=== PATIENT | male | born 1955 | race Caucasian/White ===

== ENCOUNTER 2016-12-19 20:17 | Observation (INO) | payer MEDICARE ==
[~2016-12-19] VITALS: Ht 177.8 cm; Wt 114.6 kg
--- NOTE | ~2016-12-19 | HEMODYNAMI ---
PATIENT:LYNDA KAHN MEDICAL RECORD: [id number] : 59 LOCATION:[facility] D.212 ADMISSION DATE: 12/19/16 Generatedon:12/20/201611:44 Patient name: LYNDA KAHN Patient #: [id number] SSN: DO B: 1955 Date of study: 12/20/2016 Page: Of Hemodynamic Procedure Report Patient Data Patient Demographics Procedure consent was obtained First Name: LYNDA Gender: Male Last Name: FEMI : 1955 [facility] Initial: L Age: 60 year(s) Patient #: [id number] Race: Unknown Additional ID: [id number] Contact details [address]: [address] [place] [address] State: [place] City: [place] Zip code: [address] Past Medical History Allergies Allergen Reaction Date Comments Reported Other allergy 12/20/2016 Ibuprofen Admission Admission Data Admission Date: 12/19/2016 Admission Time: 22:10 Admit Source: Other Room #: D.2122 Height (in.): 70 BSA: 2.3 (m2) Height (cm.): 177.8 BMI: 35.94 (kg/m2) Weight (lbs.): 250.51 Weight (kg.): 113.63 Lab Results Lab Result Date: 12/19/2016 Lab Result Time: 20:00 Biochemistry Name Units Result Min Max BUN mg/dl 14 --(--*-)-- 7 18 Creatinine mg/dl 1.1 --(--*-)-- 0.6 1.3 CBC Name Units Result Min Max Hematocrit % 40.3 -*(----)-- 42 54 Hemoglobin g/dl 13.2 -*(----)-- 13.5 17.5 Procedure Procedure Types Cath Procedure Diagnostic Procedure [facility] w/Coronaries PCI Procedure Coronary Stent Initial Procedure Description Procedure Date Procedure Date: 12/20/2016 Procedure Start Time: 11:12 Procedure End Time: 11:43 Procedure Staff Name Function Wily Martinez MD Performing Physician Amarilis Aguilar RT Scrub Dagmar Moreno RN Nurse Aaron Machuca RT Monitor Yong Connell RT Monitor Procedure Data Cath Procedure Fluoroscopy Diagnostic fluoroscopy Total fluoroscopy Time: 4.9 time: 4.9 min min Diagnostic fluoroscopy Total fluoroscopy dose: dose: 1147 mGy 1147 mGy Contrast Material Contrast Material Type Amount (ml) Isovue 300 109 Entry Location Entry Primary Successful Side Size Upsize Upsize Entry Closure Succes sful Closure Location (Fr) 1 (Fr) 2 (Fr) Remarks Device Remarks Femoral Right 5 Fr 6 Fr Exoseal artery Short Diagnostic catheters Device Type Used For End Catheter Placement Cordis 5Fr JL 4.0 Procedure Catheter (MP) Cordis 5Fr 3DRC Catheter Procedure (MP) Cordis 5Fr Pigtail Procedure Catheter (MP) Procedure Medications Medication Administration Route Dosage Oxygen NC 2 l/min Heparin Flush Bag added to field 2 bags (1000units/500ml NS) Lidocaine 2% added to field 20 Versed I.V. 1 mg Fentanyl I.V. 50 mcg Versed I.V. 1 mg Fentanyl I.V. 50 mcg Versed I.V. 1 mg Fentanyl I.V. 50 mcg Heparin Bolus I.V. 50360 units Integrilin Drip I.V. drip 18 ml/hr (75mg/100ml) Brilinta P.O. 180 mg Hemodynamics Rest BSA: 2.3 (m2) HGB: 13.2 (g/dl) O2 Consumption: Estimated: 264.02 (ml/min) O2 Con sumption indexed: Estimated:114.79 (ml/min/m) Heart Rate: 62 (bpm) Pressure Samples Time Site Value (mmHg) Purpose Heart Use Rate(bpm) 11:20 LV 130/20,36 Snapshot 66 11:21 AO 121/79(94) Pullback 76 11:21 LV 161/5,46 Pullback 76 Gradients Valve Time Site 1 Site 2 Mean SEP/DFP Peak To Heart Use (mmHg) (sec/min) Peak Rate (mmHg) (bpm) Aortic 11:21 LV AO 26 6 40 76 161/5,46 121/79(94) Calculations Valve P-P Mean Valve Index Valve Source Name Gradient Area Flow (cm2) Aortic 40 26 40 26 Snapshots Pre Cath Intra NCS Post Cath Vital Signs Time Heart Resp SPO2 NIBP Rhythm Pain Sedation Rate (ipm) (%) (mmHg) Status Level (bpm) 10:56:13 64 17 96 129/71(90) NSR 0 (11) 10(A) , No pain 11:00:23 63 18 96 121/67(88) NSR 0 (11) 10(A) , No pain 11:04:33 67 16 98 116/60(89) NSR 0 (11) 10(A) , No pain 11:08:38 64 16 98 127/70(89) NSR 0 (11) 9(A) , No pain 11:12:50 62 15 98 122/63(88) NSR 0 (11) 9(A) , No pain 11:16:58 69 17 98 121/67(94) NSR 0 (11) 9(A) , No pain 11:21:08 74 16 98 130/63(91) NSR 0 (11) 9(A) , No pain 11:25:20 65 16 98 112/68(93) NSR 0 (11) 9(A) , No pain 11:29:26 64 16 98 119/65(86) NSR 0 (11) 9(A) , No pain 11:33:34 66 16 98 125/64(87) NSR 0 (11) 9(A) , No pain 11:37:43 65 16 98 118/64(89) NSR 0 (11) 10(A) , No pain 11:38:59 63 16 98 122/60(91) NSR 0 (11) 10(A) , No pain 11:43:09 70 13 97 125/67(83) NSR 0 (11) 10(A) , No pain Medications Time Medication Route Dose Verified Delivered Reason Notes Effectiveness by by 10:57:48 Oxygen NC 2 Wily Dagmar Per physician l/min Darryl Moreno RN 10:57:57 Heparin Flush added 2 bags Wily Wily used for Bag to Darryl Martinez MD procedure (1000units/500ml field NS) 10:58:03 Lidocaine 2% added 20ml Wily Wily used for to vial Darryl Martinez MD procedure field 11:02:12 Versed I.V. 1 mg Wily Dagmar for sedation Darryl Moreno RN 11:02:26 Fentanyl I.V. 50 mcg Wily Dagmar for sedation Darryl Moreno RN 11:05:00 Versed I.V. 1 mg Wily Dagmar for sedation Darryl Moreno RN 11:05:09 Fentanyl I.V. 50 mcg Wily Dagmar for sedation Darryl Moreno RN 11:07:38 Versed I.V. 1 mg Wily Dagmar for sedation Darryl Moreno RN 11:07:41 Fentanyl I.V. 50 mcg Wily Dagmar for sedation Darryl Moreno RN 11:29:05 Heparin Bolus I.V. 11,000 Wily Dagmar for dose units Darryl Moreno RN anticoagulation verified with dr martinez 11:37:34 Integrilin Drip I.V. 18 Wily Dagmar for (75mg/100ml) drip ml/hr Darryl Moreno RN antiplatelet therapy 11:37:56 Brilinta P.O. 180 mg Wily Dagmar for Darryl Moreno RN antiplatelet therapy Procedure Log Time Note 10:32:12 Informed consent obtained and on chart 10:32:16 Admit Source: Other 10:32:31 Diagnostic Cath status Elective 10:32:33 Dagmar Moreno RN sent for patient. Start room use. 10:32:34 Time tracking: Regular hours 10:32:40 Plan of Care:Hemodynamics will remain stable., Cardiac rhythm will remain stable., Comfort level will be maintained., Respiratory function will remain adequate., Patient/ family verbilizes understanding of procedure., Procedure tolerated without complication., Recovers from procedure without complications.. 10:33:43 Lab Result : Hemoglobin 13.2 g/dl 10:33:43 Lab Result : Creatinine 1.1 mg/dl 10:33:43 Lab Result : BUN 14 mg/dl 10:33:43 Lab Result : Hematocrit 40.3 % 10:34:20 H&P Date Dictated: 12/20/2016 Within 30 days and on chart.. 10:34:32 Patient Height : 177.8 cm 10:34:35 Patient Weight : 113.63 kg 10:42:07 Patient received from Med II to CCL 2 Alert and oriented. Tansferred to table in Supine position. 10:42:09 Warm blankets applied, and precious hugger turned on for patient comfort. 10:42:09 Correct patient and procedure confirmed by team. 10:42:10 ECG and BP/O2 sat monitors applied to patient. 10:42:12 Pre-procedure instructions explained to patient. 10:42:13 Pre-op teaching completed and patient verbalized understanding. 10:42:15 Family unavailable. 10:42:17 Patient NPO since Midnight. 10:55:03 Vital chart was started 10:57:48 Oxygen 2 l/min NC was administered by Dagmar Moreno RN; Per physician; 10:57:57 Heparin Flush Bag (1000units/500ml NS) 2 bags added to field was administered by Wily Martinez MD; used for procedure; 10:58:03 Lidocaine 2% 20ml vial added to field was administered by Wily Martinez MD; used for procedure; 10:59:04 Patient allergic to Other allergyIbuprofen 10:59:15 Is the patient allergic to Iodine/contrast media? No. 10:59:18 Is patient on blood thinner?No 10:59:19 Patient diabetic? Yes. 10:59:20 If diabetic: On Metformin? Yes 10:59:22 If on Metformin: Last Dose? 12/19/2016 10:59:25 Previous problem with sedation/anesthesia? No ? 10:59:25 Snore? Yes 10:59:26 Sleep apnea? Yes 10:59:27 Deviated septum? No 10:59:28 Opens mouth fully? Yes 10:59:28 Sticks out tongue? Yes 10:59:29 Airway obstruction? No ? 10:59:34 Dentures? Yes out 10:59:48 Baseline sample Acquired. 10:59:51 Rhythm: sinus rhythm 10:59:52 Full Disclosure recording started 10:59:57 Modified Joaquin's test Ulnar > 7 seconds. 11:00:01 Pre procedure: right dorsailis pedis pulse 1+ Palpable, but thready & weak; easily obliterated 11:00:03 Patient pain scale 0/10 ?. 11:00:08 IV patent on arrival in left antecubital with 0.9% NaCl at [facility]. 11:00:11 Lab results completed and on chart. 11:00:13 Right groin area was prepped with chlora-prep and draped in sterile fashion 11:00:14 Alarms reviewed by RLeslie N. 11:00:14 Sharps counted by scrub and verified by R.N. 11:00:20 Use device set Femoral Dx 11:00:21 Tegaderm 4 x 4 opened to sterile field. 11:00:22 Acist Hand Control opened to sterile field. :00:22 Acist Manifold opened to sterile field. 11:00: Acist Syringe opened to sterile field. 11:00: Bag Decanter opened to sterile field. 11:00:27 Medline Cath Pack opened to sterile field. 11:00:29 Diagnostic Infinity 5Fr Multipack catheter opened to sterile field. 11:00:30 Terumo 5Fr Sparks Sheath opened to sterile field. 11:00:31 St Monster 260cm J .035 wire opened to sterile field. 11::13 Zero performed for pressure channel P1 11::48 Physician arrived 11::48 --------ALL STOP TIME OUT------ 11::49 Final Timeout: patient, procedure, and site verified with staff and physician. All members of the team are in agreement. 11:01:50 Right groin site verified by team. 11::53 Physical assessment completed. ASA score P 2 - A patient with mild systemic disease as per Wily Martinez MD. 11:01:55 Sedation plan: IV Moderate Sedation Versed, Fentanyl 11:02:12 Versed 1 mg I.V. was administered by Dagmar Moreno RN; for sedation; ::26 Fentanyl 50 mcg I.V. was administered by Dagmar Moreno RN; for sedation; 11:05:00 Versed 1 mg I.V. was administered by Dagmar Moreno RN; for sedation; 11:05:09 Fentanyl 50 mcg I.V. was administered by Dagmarmeng Moreno RN; for sedation; 11:07:38 Versed 1 mg I.V. was administered by Dagmarlisa Moreno RN; for sedation; 11:07:41 Fentanyl 50 mcg I.V. was administered by Dagmarmeng Moreno RN; for sedation; 11:12:02 Procedure started. 11:12:05 Local anesthetic to right femoral artery with Lidocaine 2% by Wily Martinez MD.INITIAL ACCESS ONLY 11:13:27 A 5 Fr sheath was inserted into the Right Femoral artery 11:13:54 A Cordis 5Fr JL 4.0 Catheter (MP) was advanced over the wire and used for Procedure. 11:14:50 LCA angiography performed. 11:16:12 Catheter exchanged over wire. 11:16:19 A Cordis 5Fr 3DRC Catheter (MP) was advanced over the wire and used for Procedure. 11:17:15 RCA angiography performed. 11:18:26 Catheter exchanged over wire. 11:18:32 A Cordis 5Fr Pigtail Catheter (MP) was advanced over the wire and used for Procedure. 11:20:50 LV gram done using BROWN 11:20:52 Injector settings: Ml/sec: 10, Volume: 0, 11:21:01 EF : 55 % 11:22:16 Catheter removed. 11:22:25 Terumo 6Fr Sparks Sheath opened to sterile field. 11:24:46 RIGID BasixCompak Inflation Kit opened to sterile field. 11:24:46 Cordis 6FR XBLAD 3.5 guide catheter opened to sterile field. 11:24:47 [employer] [place] 2 J-tip 300cm 0.014 guide wir opened to sterile field. 11:24:59 Sheath upsized to a 6 Fr Short. 11:25:32 6 Fr xblad 3.5 guide catheter was inserted over the wire 11:29:05 Heparin Bolus 11,000 units I.V. was administered by Dagmar Moreno RN; for anticoagulation; dose verified with dr martinez 11:30:31 whisper wire advanced. 11:31:02 Wire advanced across lesion. 11:33:44 Inflation Number: 1 A Victor Ultra Rx 5.0 x 13 Stent was prepped and advanced across the Mid LAD. The stent was deployed at 12 ROSA MARIA for 0:10 (min:sec). 11:34:13 Stent catheter was removed intact over wire. 11:34:45 Wire removed. 11:34:57 Guide catheter removed. 11:35:12 Cordis 6Fr Exoseal opened to sterile field. 11:35:32 Sheath removed intact; hemostasis achieved with Exoseal to the Right Femoral artery. 11:36:03 Procedure ended.(Physican Out) 11:36:46 Fluoroscopy time 04.90 minutes. 11:36:57 Fluoroscopy dose: 1147 mGy 11:36:57 Flurop Dose total: 1147 11:37:10 Contrast amount:Isovue 300 109ml. 11:37:11 Sharps counted by scrub and verified by R.N. 11:37:34 Integrilin Drip (75mg/100ml) 18 ml/hr I.V. drip was administered by Dagmar Moreno RN; for antiplatelet therapy; 11:37:56 Brilinta 180 mg P.O. was administered by Dagmar Moreno RN; for antiplatelet therapy; 11:39:12 Procedure type changed to Cath procedure, Diagnostic procedure, LHC, LHC w/Coronaries, PCI procedure, Coronary Stent Initial 11:42:21 Insertion/operative site no bleeding no hematoma. 11:42:25 Post-op/insertion site Right Femoral artery dressed using a 4 x 4 and Tegaderm. 11:42:30 Post right femoral artery:stable 11:42:46 Post-procedure physical assessment completed. ASA score P 2 - A patient with mild systemic disease as per Wily Martinez MD. 11:43:05 Post procedure rhythm: sinus rhythm 11:43:08 Procedure and supply charges have been captured, reviewed, submitted and are correct. 11:43:25 Vital chart was stopped 11:43:26 See physician's report for complete and final results. 11:43:32 Report given to PCU. 11:43:36 Patient transfered to PCU with Bed. 11:43:40 Procedure ended. 11:43:40 Full Disclosure recording stopped 11:43:51 End room use (Document Last) 11:44:01 ACC-PCI Only Patient was given prescriptions, or instructed by Wily Martinez MD to start/continue the following medications upon discharge: Brilinta Intervention Summary Intervention Notes Time ActionType Lesion and Equipment Action# Pressure Duration Attributes Used 11:33:44 Place stent Mid LAD Victor 1 12 00:10 Ultra Rx 5.0 x 13 Stent Device Usage Item Name Manufacture Quantity Catalog Hospital Part Current Minimal Lot# / Number Charge Number Stock Stock Serial# Code Tegaderm 4 3M 1 [id number] 646006 853576 5 x 4 Acist Hand Acist 1 87815 682456 514021 585021 5 Control [employer] Inc Acist Acist 1 07912 282567 679133 746593 5 Manifold Medical [employer] Inc Acist Acist 1 07027 487399 471086 285197 20 Syringe Medical Systems Inc Bag Microtek 1 [facility] 769401 60799 706085 5 Dec[employer]ex[employer]ense [employer] Medline Cardinal 1 [id number] 588331 35616 072278 5 Cath Pack Health Diagnostic Cardinal 1 [id number] 770915 48461 202204 30 Infinity Health 5Fr Multipack catheter Terumo 5Fr Terumo 1 [id number] 038788 463460 395419 [address] Monster 1 519107 244230 196062 885739 30 260cm J .035 wire Cordis 5Fr Cardinal 1 691653 5 JL 4.0 Health Catheter (MP) Cordis 5Fr Cardinal 1 835932 5 3DRC Health Catheter (MP) Cordis 5Fr Cardinal 1 192132 5 Pigtail Health Catheter (MP) Terumo 6Fr Terumo 1 [id number] 486854 628151 147162 40 Sparks Sheath [facility] 1 [id number] 057097 961781 339987 15 BasixCompak Medical Inflation Kit Cordis 6FR Cardinal 1 [id number] 644645 258747 773855 10 XBLAD 3.5 Health guide catheter Victor [employer] Victor 1 [id number] 008810 408236 248667 5 [place] 2 Vascular J-tip 300cm 0.014 guide wir Victor Victor 1 [id number] 141375 460037 960353 5 [id number] Ultra Rx Vascular 5.0 x 13 Stent Cordis 6Fr Cardinal 1 EX600 429017 285808 564841 10 [facility] Signature Audit [place] Stage Time Signature Unsigned Intra-Procedure 12/20/2016 Yong Connell 11:44:42 AM RT(R) (CV) Signatures Monitor : Aaron Machuca RT Signature : Date : Time : Monitor : Yong Connell RT Signature : Date : Time : [facility] [address] [address]
--- NOTE | ~2016-12-19 | OP ---
PATIENT NAME: LYNDA KAHN MEDICAL RECORD: [id number] :59 LOCATION:D. D.2122 ADMISSION DATE:12/19/16 SURGEON: ARMIN GR M.D. DATE OF OPERATION: 12/21/2016 REFERRING PHYSICIAN: Jose G Esparza DO. PROCEDURES PERFORMED: PTCA and stent placed in the right coronary. INDICATION: A 60-year-old gentleman who presents with unstable angina. He returns today for completion of staged procedure. EQUIPMENT USED: A 7-Dominican AR1 guide, Whisper guidewire, 3.0 x 15 mm Wallace balloon, 4.5 x 30 mm Ultra stent, 4.0 x 18 mm Integrity stent. DESCRIPTION OF INTERVENTION: A 7-Dominican sheath was inserted in retrograde fashion in the left common femoral artery. Next, 9000 units of heparin was infused. A 7-Dominican AR1 guide was advanced and engaged in the right coronary. Injections revealed a 99% stenosis with a large calcified plaque in the proximal segment. There appeared to be a ruptured plaque in mid segment representing an 80% stenosis. At this point, a Whisper guidewire was placed in the distal aspect of the vessel. The proximal vessel was predilated with a 3.0 x 15 mm Wallace balloon at 14 atmospheres. Next, a 4.5 x 30 mm Ultra stent was placed across the stenosis and deployed at 12 atmospheres. Injection shows stent to be widely patent with 0% residual stenosis. Next, a 4.0 x 18 mm Integrity stent was placed across the lesion in the mid right coronary artery. This stent was deployed at 18 atmospheres. Injection shows stent to be widely patent with 0% residual stenosis. There was marked improvement in distal flow. There is no evidence of any thrombus throughout the right coronary artery filling. At this point, the wire and guide were removed. IMPRESSION: Successful percutaneous transluminal coronary angioplasty and stenting to the right coronary artery with 0% residual stenosis. TRANSINT:[id number] Voice Confirmation ID: [id number] DOCUMENT ID: [id number] ARMIN GR M.D. CC: [id number] DICTATION DATE: 12/21/16 1323 CHARACTER IMPERSONATOR: 12/21/16 2100 DIS IN 12/21/16 [facility] [address] [place] [address]
--- NOTE | ~2016-12-19 | HEMODYNAMI ---
PATIENT:LYNDA KAHN MEDICAL RECORD: [id number] : 59 LOCATION:[facility] D.2122 ADMISSION DATE: 12/19/16 Generatedon:12/21/201613:22 Patient name: LYNDA KAHN Patient #: [id number] SSN: DO B: 1955 Date of study: 12/21/2016 Page: Of Hemodynamic Procedure Report Patient Data Patient Demographics Procedure consent was obtained First Name: LYNDA Gender: Male Last Name: FEMI : 1955 [facility] Initial: L Age: 60 year(s) Patient #: [id number] Race: Unknown Additional ID: [id number] Contact details [address]: [address] [place] [address] State: [place] City: [place] Zip code: [address] Past Medical History Allergies Allergen Reaction Date Comments Reported Other allergy 12/20/2016 Ibuprofen Other allergy 12/21/2016 ibuprofen Admission Admission Data Admission Date: 12/19/2016 Admission Time: 22:10 Admit Source: Other Room #: D.2122 Height (in.): 70 BSA: 2.3 (m2) Height (cm.): 177.8 BMI: 35.94 (kg/m2) Weight (lbs.): 250.51 Weight (kg.): 113.63 Lab Results Lab Result Date: 12/21/2016 Lab Result Time: 5:36 Biochemistry Name Units Result Min Max BUN mg/dl 16 --(---*)-- 7 18 Creatinine mg/dl 1 --(--*-)-- 0.6 1.3 CBC Name Units Result Min Max Hematocrit % 40.5 -*(----)-- 42 54 Hemoglobin g/dl 13 -*(----)-- 13.5 17.5 Procedure Procedure Types Cath Procedure PCI Procedure Coronary Stent Initial Miscellaneous Procedures Moderate Sedation up to 45 minutes Procedure Description Procedure Date Procedure Date: 12/21/2016 Procedure Start Time: 12:49 Procedure End Time: 13:19 Procedure Staff Name Function Yong RAY Scrub Pradeep Reyes RN Nurse Aaron Machuca RT Monitor Wily Andrews MD Performing Physician Procedure Data Cath Procedure Fluoroscopy Diagnostic fluoroscopy Total fluoroscopy Time: 7 time: 7 min min Diagnostic fluoroscopy Total fluoroscopy dose: dose: 601.16 mGy 601.16 mGy Contrast Material Contrast Material Type Amount (ml) Isovue 300 81 Entry Location Entry Primary Successful Side Size Upsize Upsize Entry Closure Succes sful Closure Location (Fr) 1 (Fr) 2 (Fr) Remarks Device Remarks Femoral Right 7 Fr Exoseal artery Short Estimated blood loss: 10 ml Procedure Complications No complications Procedure Medications Medication Administration Route Dosage Oxygen NC 2 l/min Heparin Flush Bag added to field 2 bags (1000units/500ml NS) 0.9% NaCl I.V. 100 ml/hr Fentanyl I.V. 50 mcg Versed I.V. 1 mg Fentanyl I.V. 50 mcg Versed I.V. 1 mg Fentanyl I.V. 50 mcg Fentanyl I.V. 50 mcg Heparin Bolus I.V. 9000 units Versed I.V. 1 mg Hemodynamics Rest BSA: 2.3 (m2) HGB: 13 (g/dl) O2 Consumption: Estimated: 269.5 (ml/min) O2 Consum ption indexed: Estimated:117.17 (ml/min/m) Heart Rate: 69 (bpm) Snapshots Pre Cath Intra NCS Post Cath Vital Signs Time Heart Resp SPO2 NIBP (mmHg) Rhythm Pain Sedation Rate (ipm) (%) Status Level (bpm) 12:36:40 68 16 94 135/76(93) NSR 0 (11) 10(A) , No pain 12:40:54 66 17 97 121/76(100) NSR 0 (11) 10(A) , No pain 12:45:12 71 18 98 127/79(99) NSR 0 (11) 10(A) , No pain 12:49:28 66 18 97 130/78(104) NSR 0 (11) 9(A) , No pain 12:53:48 67 17 98 127/73(96) NSR 0 (11) 9(A) , No pain 12:58:15 76 17 94 130/81(112) NSR 0 (11) 9(A) , No pain 13:02:35 77 18 96 147/85(121) NSR 0 (11) 9(A) , No pain 13:07:13 75 18 97 149/76(124) NSR 0 (11) 9(A) , No pain 13:11:47 77 18 97 139/82(101) NSR 0 (11) 9(A) , No pain 13:16:10 75 18 97 128/77(104) NSR 0 (11) 9(A) , No pain 13:20:57 72 17 98 139/84(95) NSR 0 (11) 9(A) , No pain Medications Time Medication Route Dose Verified Delivered Reason Notes Effectiveness by by 12:39:28 Oxygen NC 2 Pradeep Pradeep Per physician l/min Eric Reyes RN RN 12:39:37 Heparin Flush added 2 Pradeep Pradeep used for Bag to bags Eric Reyes RN procedure (1000units/500ml field RN NS) 12:39:47 0.9% NaCl I.V. 100 Pradeep Pradeep Per physician ml/hr Eric Reyes RN RN 12:43:48 Fentanyl I.V. 50 Pradeep Pradeep for sedation mcg Eric Reyes RN RN 12:43:54 Versed I.V. 1 mg Pradeep Pradeep for sedation Eric eRyes RN RN 12:48:09 Fentanyl I.V. 50 Pradeep Pradeep for sedation mcg Eric Reyes RN RN 12:48:13 Versed I.V. 1 mg Pradeep Pradeep for sedation Eric Reyes RN RN 12:53:51 Fentanyl I.V. 50 Pradeep Pradeep for sedation mcg Eric Reyes RN RN 12:55:13 Fentanyl I.V. 50 Pradeep Pradeep for sedation mcg Eric Reyes RN RN 12:55:50 Heparin Bolus I.V. 9000 Pradeep Pradeep for units Eric Reyes RN anticoagulation RN 12:58:39 Versed I.V. 1 mg Pradeep Pradeep for sedation Eric Reyes RN inspector balance bridge Log Time Note 12:00:30 Pradeep Reyes RN sent for patient. Start room use. 12:18:09 Informed consent obtained and on chart 12:18:27 Diagnostic Cath status Elective 12:18:36 Time tracking: Regular hours 12:18:39 Plan of Care:Hemodynamics will remain stable., Cardiac rhythm will remain stable., Comfort level will be maintained., Respiratory function will remain adequate., Patient/ family verbilizes understanding of procedure., Procedure tolerated without complication., Recovers from procedure without complications.. 12:19:30 Lab Result : BUN 16 mg/dl 12::30 Lab Result : Creatinine 1 mg/dl 12::30 Lab Result : Hematocrit 40.5 % 12::30 Lab Result : Hemoglobin 13 g/dl 12::33 Lab results completed and on chart. 12:26:45 Patient received from PCU to CCL 3 Alert and oriented. Tansferred to table in Supine position. 12:26:46 Warm blankets applied, and precious hugger turned on for patient comfort. 12:26:46 Correct patient and procedure confirmed by team. 12::47 ECG and BP/O2 sat monitors applied to patient. 12:35:26 Vital chart was started 12:36:25 Baseline sample Acquired. 12:36:28 Rhythm: sinus rhythm 12:36:33 H&P Date Dictated: 12/20/2016 Within 30 days and on chart.. 12:36:34 Pre-procedure instructions explained to patient. 12:36:35 Pre-op teaching completed and patient verbalized understanding. 12:36:37 Family unavailable. 12:36:38 Patient NPO since Midnight. 12:36:49 Patient allergic to Other allergyibuprofen 12:36:51 Is the patient allergic to Iodine/contrast media? No. 12:36:51 Is patient on blood thinner?Yes 12:36:54 ACC The patient was administered the following blood thiners within the last 24 hours: ACCBrilinta 12:36:58 Patient diabetic? Yes. 12:36:59 If diabetic: On Metformin? Yes 12:37:02 If on Metformin: Last Dose? 12/19/2016 12:37:05 Previous problem with sedation/anesthesia? No ? 12:37:06 Snore? Yes 12:37:07 Sleep apnea? Yes 12:37:08 Deviated septum? No 12:37:08 Opens mouth fully? Yes 12:37:10 Sticks out tongue? Yes 12:37:16 Airway obstruction? No ? 12:37:19 Dentures? Yes out 12:37:33 Patient pain scale 0/10 ?. 12:37:37 IV patent on arrival in left antecubital with 0.9% NaCl at KVO. 12:37:46 Left groin area was prepped with chlora-prep and draped in sterile fashion 12:37:49 Alarms reviewed by R. N. 12:37:50 Sharps counted by scrub and verified by R.N. 12:37:56 Use device set Femoral PCI 12:37:57 Tegaderm 4 x 4 opened to sterile field. 12:37:57 Acist Manifold opened to sterile field. 12:37:59 Acist Syringe opened to sterile field. 12:37:59 Acist Hand Control opened to sterile field. 12:38:00 Bag Decanter opened to sterile field. 12:38:00 Medline Cath Pack opened to sterile field. 12:38:01 Terumo 6Fr Gibson Sheath opened to sterile field. 12:38:01 St Monster 260cm J .035 wire opened to sterile field. 12:38:02 Merit BasixCompak Inflation Kit opened to sterile field. 12:38:10 Physician arrived 12:38:10 --------ALL STOP TIME OUT------ 12:38:11 Final Timeout: patient, procedure, and site verified with staff and physician. All members of the team are in agreement. 12:38:12 Left groin site verified by team. 12:38:15 Physical assessment completed. ASA score P 2 - A patient with mild systemic disease as per Wily Andrews MD. 12:38:18 Sedation plan: IV Moderate Sedation Versed, Fentanyl 12:39:28 Oxygen 2 l/min NC was administered by Pradeep Reyes RN; Per physician; 12:39:37 Heparin Flush Bag (1000units/500ml NS) 2 bags added to field was administered by Pradeep Reyes RN; used for procedure; 12:39:47 0.9% NaCl 100 ml/hr I.V. was administered by Pradeep Reyes RN; Per physician; 12:43:48 Fentanyl 50 mcg I.V. was administered by Pradeep Reyes RN; for sedation; 12:43:49 Victor Whisper J 300cm 0.014 guide wire opened to sterile field. 12:43:54 Versed 1 mg I.V. was administered by Pradeep Reyes RN; for sedation; 12:48:09 Fentanyl 50 mcg I.V. was administered by Pradeep Reyes RN; for sedation; 12:48:13 Versed 1 mg I.V. was administered by Pradeep Reyes RN; for sedation; 12:49:02 Zero performed for pressure channel P1 12:49:14 Procedure started. 12:49:14 Full Disclosure recording started 12:49:19 Local anesthetic to left femerol artery with Lidocaine 2% by Wily Andrews MD.INITIAL ACCESS ONLY 12:49:27 A 7 Fr Short sheath was inserted into the Right Femoral artery 12:49:42 Medtronic Launcher 7Fr AR 1.0 guide catheter opened to sterile field. 12:49:43 Zero performed for pressure channel P1 12:49:55 High Pressure Extension Tubing (Darryl) opened to sterile field. 12:53:51 Fentanyl 50 mcg I.V. was administered by Pradeep Reyes RN; for sedation; 12:54:14 7 Fr AR 1 guide catheter was inserted over the wire 12:55:02 RCA angiography performed. 12:55:13 Fentanyl 50 mcg I.V. was administered by Pradeep Reyes RN; for sedation; 12:55:50 Heparin Bolus 9000 units I.V. was administered by Pradeep Reyes RN; for anticoagulation; 12:56:57 WHISPER wire advanced. 12:57:59 Wire advanced across lesion. 12:58:39 Versed 1 mg I.V. was administered by Pradeep Reyes RN; for sedation; 13:00:09 Inflation number: 1 A [place] Sci [place]ville 3.0 X 15 balloon was prepped and advanced across the Prox RCA, then inflated to 12 ROSA MARIA for 0:10 (min:sec). 13:00:34 Inflation number: 2 The [place] Sci Renville 3.0 X 15 balloon was reinflated across the Prox RCA, to 12 ROSA MARIA for 0:10 (min:sec). 13:02:04 Balloon removed over the wire. 13:04:31 Inflation Number: 3 A Victor Ultra Rx 4.5 x 13 stent was prepped and advanced across the Prox RCA. The stent was deployed at 12 ROSA MARIA for 0:10 (min:sec). 13:05:40 Stent catheter was removed intact over wire. 13:09:26 The Victor Ultra Rx 5.0 x 18 stent was advanced then removed because of failure to cross lesion 13:13:21 Inflation Number: 1 A Medtronic Integrity 4.0 X 18 stent was prepped and advanced across the Mid RCA. The stent was deployed at 18 ROSA MARIA for 0:10 (min:sec). 13:14:29 Stent catheter was removed intact over wire. 13:14:30 Wire removed. 13:14:30 Guide catheter removed. 13:14:36 Cordis 7Fr Exoseal opened to sterile field. 13:14:50 Sheath removed intact; hemostasis achieved with Exoseal to the Right Femoral artery. 13:14:52 Procedure ended.(Physican Out) 13:15:03 Fluoroscopy time 07.00 minutes. 13:15:10 Fluoroscopy dose: 601.16 mGy 13:15:10 Flurop Dose total: 601.16 13:15:42 Contrast amount:Isovue 300 81ml. 13:15:43 Sharps counted by scrub and verified by R.N. 13:15:44 Insertion/operative site no bleeding no hematoma. 13:15:47 Post-op/insertion site Left Femoral artery dressed using a 4 x 4 and Tegaderm. 13:15:52 Post left femerol artery:stable, soft, clean and dry 13:15:53 Post Procedure Pulses reassessed and unchanged 13:15:56 Post-procedure physical assessment completed. ASA score P 2 - A patient with mild systemic disease as per Wily Andrews MD. 13:15:58 Post procedure rhythm: unchanged. 13:16:02 Estimated blood loss: 10 ml 13:16:03 Post procedure instruction explained to patient.Patient verbalizes understanding. 13:16:03 Patient needs reinforcement of post procedure teaching. 13:18:03 Procedure type changed to Cath procedure, PCI procedure, Coronary Stent Initial, Miscellaneous Procedures, Moderate Sedation up to 45 minutes 13:19:40 Procedure and supply charges have been captured, reviewed, submitted and are correct. 13:19:42 Procedure Complication : No complications 13:19:44 Vital chart was stopped 13:19:44 See physician's report for complete and final results. 13:19:46 Report given to PCU. 13:19:47 Patient transfered to PCU with Stretcher. 13:19:49 Procedure ended. 13:19:49 Full Disclosure recording stopped 13:20:16 End room use (Document Last) Intervention Summary Intervention Notes Time ActionType Lesion and Equipment Action# Pressure Duration Attributes Used 13:00:09 Inflate Prox RCA [place] 1 12 00:10 balloon Sci [place] 3.0 X 15 balloon 13:00:34 Reinflate Prox RCA [place] 2 12 00:10 balloon Sci [place] 3.0 X 15 balloon 13:04:31 Place stent Prox RCA Victor 3 12 00:10 Ultra Rx 4.5 x 13 stent 13:09:26 Discard Victor Stent Ultra Rx 5.0 x 18 stent 13:13:21 Place stent Mid RCA Medtronic 1 18 00:10 Integrity 4.0 X 18 stent Device Usage Item Name Manufacture Quantity Catalog Number Hospital Part Current Mini mal Lot# / Charge Number Stock Stock Serial# Code Tegaderm 4 3M 1 [id number] 061619 238136 547703 5 x 4 Acist Acist 1 53463 183371 495225 862567 5 Manifold Medical Systems Io Therapeutics Acist Acist 1 82130 640542 409596 717601 20 Syringe Medical Systems [employer]rapeutics Acist Hand Acist 1 84433 705181 215479 592444 5 [facility] Systems [employer]rapeutics Bag Microtek 1 2002S 577596 32063 480788 5 Pact. Medline Cardinal 1 [id number] 967549 10586 132029 5 Cath Yorder Terumo 6Fr Terumo 1 [id number] 549116 280279 787731 [address] Monster St Monster 1 104677 590686 361221 962505 30 260cm J .035 wire Merit Merit 1 [id number] 003430 288982 411085 15 BasixCompak Medical Inflation Kit Victor Victor 1 [id number] 461884 472174 290836 5 Whisper J Vascular 300cm 0.014 guide wire Medtronic Medtronic 1 [id number] 539779 873214 775548 0 Launcher 7Fr AR 1.0 guide catheter High Merit 1 [id number] 053926 26520 715787 10 Pressure Medical Extension Tubing (Andrews) [place] Sci [place] 1 [id number] 028266 462985 907177 1 [id number] [place] Scientific 3.0 X 15 balloon Victor Victor 1 [id number] 621098 757224 023993 5 [id number] Ultra Rx Vascular 4.5 x 13 stent Victor Victor 1 [id number] 588177 695235 639306 5 [id number] Ultra Rx Vascular 5.0 x 18 stent Medtronic Medtronic 1 [id number] 634528 703287 9 [id number] Integrity 4.0 X 18 stent Cordis 7Fr [place] 1 EX700 647252 756454 954259 5 [facility] Signature Audit Ironside Stage Time Signature Unsigned Intra-Procedure 12/21/2016 Aaron Machuca 1:22:24 PM RT(R) Signatures Monitor : Aaron Machuca RT Signature : Date : Time : [address] [place] [address]
--- NOTE | ~2016-12-19 | OP ---
PATIENT NAME: LYNDA KAHN MEDICAL RECORD: [id number] :59 LOCATION:D. D.2122 ADMISSION DATE:12/19/16 SURGEON: ARMIN GR M.D. DATE OF OPERATION: 12/20/2016 REFERRING PHYSICIAN: Jose G Esparza DO. PROCEDURES PERFORMED: 1. Selective coronary angiography. 2. Left heart catheterization with ventriculogram. 3. PTCA and stent placed in the LAD. INDICATION: A 60-year-old gentleman who presents with unstable angina. EQUIPMENT USED: Diagnostic 5-[place] JL4, [place] right, pigtail catheter. INTERVENTION: A 6-[place] XB LAD guide, BMW guide wire, 5.0 x 13-mm Ultra stent. TECHNIQUE: A 5-[place] sheath was inserted in retrograde fashion in the right common femoral artery. Next, selective coronary angiography was performed in standard views using 5-[place] JL4 and [place] right. Left heart catheterization was performed using pigtail catheter. CORONARY ANATOMY: 1. Left main: Left main trunk is large in caliber. It gives rise to the LAD and circumflex. There is no obstruction. 2. LAD: This is a large caliber vessel extending to the apex. The proximal vessel is heavily calcified. At the junction of the proximal mid vessel, there is an ulcerated 70%-80% stenosis. 3. Circumflex: This vessel is rather small and diminutive. It provides a high lateral branch. However, the branch is large in caliber. It has mild irregularities, but nothing worse than 20%. 4. Right coronary: This vessel is large in caliber and dominant. The proximal vessel has a large exophytic plaque representing a 90% stenosis. The mid vessel demonstrates some plaque as well and what appears to be a ruptured plaque with a dissection involving the mid vessel. There is somewhat slow flow in the distal vessel. There was some concern it may be some thrombus in the mid vessel as well. 5. Left ventricle: Left ventricle is normal in size and function. No wall motion abnormalities are noted. Ejection fraction is 55%. DESCRIPTION OF INTERVENTION: A 6-[place] sheath was inserted in retrograde fashion in the right common femoral artery. Next, 100 units per kilogram of heparin was infused. A 6-[place] XB LAD guide was advanced and engaged in the left main coronary artery. Next, a BMW guide wire was placed in the distal vessel. A 5.0 x 13 mm Ultra stent was placed across the stenosis and deployed at 12 atmospheres. Injection reveals stent to be widely patent with 0% residual stenosis. There is marked improvement in distal flow. At this point, the wire and guide were removed. IMPRESSION: Successful percutaneous transluminal coronary angioplasty and stent in the LAD with 0% residual stenosis. PLAN: I will place him on Integrilin overnight to see if this will clean up some of this thrombus in his right coronary artery. We will likely proceed with OPERATIVE REPORT [id number] LYNDA KAHN PTCA of the right coronary artery tomorrow. TRANSINT:[id number] Voice Confirmation ID: [id number] DOCUMENT ID: [id number] ARMIN GR M.D. CC: [id number] DICTATION DATE: 12/20/16 1145 BEST WORKER: 12/20/16 1403 ADM IN [facility] [address] [place] [address]
[~2016-12-19 20:17] MED LIST: AMBIEN10 MG PO; ASPIRIN325 MG PO; GLUCOPHAGE1000 MG PO; LANTUS INSULIN10 ML SQ; LASIX20 MG PO; MYSOLINE 50 MG50 MG PO; NEURONTIN800 MG PO; PRAVACHOL40 MG PO; PRINIVIL20 MG PO; VOLTAREN100 MG PO
[2016-12-19 20:55] LABS: BASOPHILS 0.3 % (0-2); EOSINOPHILS 2.5 % (0-7); HEMATOCRIT 40.3 % (42.0-54.0); HEMOGLOBIN 13.2 g/dL (13.5-17.5); IMMATURE GRANULOCYTES 0.4 % (0-5); LYMPHOCYTES 21.3 % (15-50); MCH 27.6 pg (26.0-34.0); MCHC 32.8 g/dL (31.0-37.0); MCV 84.1 fL (80.0-100.0); MEAN PLATELET VOLUME 9.2 fL (7.4-10.4); MONOCYTES 5.8 % (2-11); NEUTROPHILS 69.7 % (40-80); PLATELET COUNT 246 10x3/uL (130-400); RBC 4.79 10x6/uL (4.20-6.10); RDW 13.8 % (11.5-14.5); WBC 9.5 10x3/uL (4.8-10.8)
[2016-12-19 21:20] LABS: ALBUMIN 3.5 g/dL (3.4-5.0); ALKALINE PHOSPHATASE 53 U/L (46-116); ALT (SGPT) 36 U/L (10-68); BILIRUBIN - TOTAL 0.25 mg/dL (0.2-1.3); CALC OSMOLALITY 275 mosm/kg (275-300); CALCIUM 8.8 mg/dL (8.5-10.1); CARBON DIOXIDE 26.7 mmol/L (21.0-32.0); CHLORIDE - SERUM 98 mmol/L (98-107); CREATININE - SERUM 1.1 mg/dL (0.6-1.3); POTASSIUM - SERUM 3.6 mmol/L (3.5-5.1); PROTEIN - SERUM 7.1 g/dL (6.4-8.2); SODIUM 135 mmol/L (136-145); UREA NITROGEN 14 mg/dL (7-18); eGFR NON AFRICAN AMERICAN 73 mL/min (90-120)
[2016-12-19 21:22] LABS: GLUCOSE 184 mg/dL (74-106)
[2016-12-19 21:36] LABS: CHOL - HDL RATIO 3.9 ratio (2.3-4.9); CHOLESTEROL, TOTAL 120 mg/dL (0-200); CKMB 2.5 U/L (0.0-3.6); CREATINE KINASE 152 UL (21-232); HDL CHOLESTEROL 31 mg/dL (32-96); LDL CHOLESTEROL 45 mg/dL (0-100); LDL-HDL RATIO 1.5 ratio (1.5-3.5); TRIGLYCERIDE 224 mg/dL (30-200)
[2016-12-19 21:37] LABS: TROPONIN-I < 0.017 ng/mL (0.000-0.060)
--- NOTE | 2016-12-19 23:05 | NUR ---
PT RECEIVED FROM ER, ADMIT TO DR PHILLIPS FOR CHESTPAIN, IV-L. AC, BED IS LOW, SRX2, PT DENIES ANY NEEDS AT THIS TIME, CALL LIGHT IN REACH, WILL CONTINUE TO MONITOR
[2016-12-19] MEDS ORDERED: NOVOLOG MIX (23:28)
[2016-12-19] MEDS ORDERED: NEURONTIN600 MG PO (23:32)
[2016-12-19] MEDS ORDERED: MYSOLINE 50 MG50 MG PO (23:33)
[2016-12-19] MEDS ORDERED: ZESTRIL40 MG PO (23:37)
[2016-12-20 00:25] VITALS: BP 122/77; BMI 35.9
[2016-12-20 04:00] VITALS: BP 103/65
--- NOTE | 2016-12-20 05:05 | NUR ---
HAS BEEN SLEEPING WITHOUT PAIN. MONITOR HAS SHOWN SR @ 68. REMAINS NPO.
[2016-12-20 07:37] LABS: BASOPHILS 0.4 % (0-2); EOSINOPHILS 3.4 % (0-7); HEMATOCRIT 39.8 % (42.0-54.0); HEMOGLOBIN 12.9 g/dL (13.5-17.5); IMMATURE GRANULOCYTES 0.5 % (0-5); LYMPHOCYTES 21.5 % (15-50); MCH 27.2 pg (26.0-34.0); MCHC 32.4 g/dL (31.0-37.0); MEAN PLATELET VOLUME 9.6 fL (7.4-10.4); MONOCYTES 7.9 % (2-11); NEUTROPHILS 66.3 % (40-80); PLATELET COUNT 250 10x3/uL (130-400); RBC 4.74 10x6/uL (4.20-6.10); WBC 8.2 10x3/uL (4.8-10.8)
--- NOTE | 2016-12-20 08:03 | NUR ---
ASSESSMENT DONE, DENIES NEEDS.
[2016-12-20 08:21] LABS: CALC OSMOLALITY 275 mosm/kg (275-300); CALCIUM 8.8 mg/dL (8.5-10.1); CARBON DIOXIDE 26.6 mmol/L (21.0-32.0); CHLORIDE - SERUM 100 mmol/L (98-107); GLUCOSE 180 mg/dL (74-106); POTASSIUM - SERUM 3.8 mmol/L (3.5-5.1); SODIUM 135 mmol/L (136-145); UREA NITROGEN 16 mg/dL (7-18); eGFR NON AFRICAN AMERICAN 81 mL/min (90-120)
[2016-12-20 08:45] VITALS: BP 104/58
--- NOTE | 2016-12-20 09:04 | NUR ---
RESTS IN BED WITH EYES CLOSED. CALL LIGHT IN REACH. WILL MONITOR NEEDS.
--- NOTE | 2016-12-20 10:38 | NUR ---
TO PROMOTIONAL DEMONSTRATOR PER BED
--- NOTE | 2016-12-20 11:58 | NUR ---
RETURN FROM FILM LABORATORY TECHNICIAN PER BED. RT CAROLE AYALA C&D, PULSE GOOD.
[2016-12-20 12:23] VITALS: Ht 177.8 cm; Wt 114.6 kg
[2016-12-20 16:39] VITALS: BP 135/75
--- NOTE | 2016-12-20 18:05 | HP ---
PATIENT: LYNDA KAHN MEDICAL RECORD: [id number] ACCOUNT: [id number] LOCATION:[address] : 59 ADMISSION DATE: 12/19/16 HISTORY AND PHYSICAL EXAMINATION HISTORY OF PRESENT ILLNESS: Mr. Kahn is a 60-year-old white male with a history of previous TIA/CVA, presents with chest discomfort. He has had two episodes, initial episode lasted over 20 minutes, radiated to his left arm, presents to the emergency room where he was given some nitroglycerin, which improved his pain. He has a right bundle branch block. His initial enzymes were negative. He is admitted for further evaluation. There is a strong family history of heart disease in his family. The patient is an everyday smoker. PAST MEDICAL HISTORY: Significant for hypertension, insulin treated diabetes with neuropathy, tremor, chronic back pain, CVA. PAST SURGICAL HISTORY: Includes back surgery. He has also had surgery in his right eye and he is unable to see out of it. ALLERGIES AND INTOLERANCES: TO IBUPROFEN. HOME MEDICATIONS: Include lisinopril 40 mg a day, pravastatin 40 mg a day, aspirin once a day, gabapentin 600 mg b.i.d., Mysoline 50 mg at h.s., furosemide 20 daily, metformin 1000 b.i.d. FAMILY HISTORY: Significant for vascular disease. SOCIAL HISTORY: The patient is an everyday smoker, disabled. REVIEW OF SYSTEMS: No fever, no infectious symptoms, chest pain as above, some shortness of breath, some nausea, pain radiates to left arm, chronic back pain, loss of vision in right eye. PHYSICAL EXAMINATION: HEENT: Head is normocephalic, sclerae nonicteric. HEART: Regular. LUNGS: Clear. ABDOMEN: Soft. EXTREMITIES: Has some 1-2+ edema of his lower extremities. NEUROLOGIC: No gross focal deficits. IMPRESSION: 1. Chest pain. 2. History of TIA/CVA, insulin treated diabetes, hypertension, hyperlipidemia, obesity, tobacco abuse. PLAN: Admit, cardiology consult, probable catheterization. Hold metformin, monitor BUN and creatinine. See orders for plan. TRANSINT:[id number] Voice Confirmation ID: [id number] DOCUMENT ID: [id number] HISTORY AND PHYSICAL [id number] FEMILYNDA ANGELO GEIGER DO at 1805 CC: [id number] DICTATION DATE: 12/20/16 1342 FIBERGLASS BOAT FINISHER: 12/20/16 1519 ADM IN [facility] [address] [place] [id number]
--- NOTE | 2016-12-20 19:42 | NUR ---
RESUMED CARE OF PT, LYING IN BED WITH EYES CLOSED RESPIRATIONS EVEN AND UNLABORED ON 2LPM VIA NC. 81 SR ON TELEMETRY. RIGHT GROIN C/D/I. LEFT AC INFUSING INTEGRILIN @ 18.1 CC/HR. CALL LIGHT IN REACH. WILL CONTINUE TO MONITOR. SEE NURSE ASSESSMENT.
[2016-12-20 20:16] VITALS: BP 136/78
[2016-12-21 00:23] VITALS: BP 124/62
--- NOTE | 2016-12-21 01:12 | NUR ---
LYING IN BED WITH EYES CLOSED, CALL LIGHT IN REACH. WILL CONTINUE TO MONITOR. 76 SR ON TELEMETRY
[2016-12-21 04:13] VITALS: BP 97/59
[2016-12-21 05:59] LABS: BASOPHILS 0.3 % (0-2); EOSINOPHILS 3.5 % (0-7); HEMATOCRIT 40.5 % (42.0-54.0); IMMATURE GRANULOCYTES 0.5 % (0-5); LYMPHOCYTES 20.1 % (15-50); MCH 27.3 pg (26.0-34.0); MCHC 32.1 g/dL (31.0-37.0); MCV 84.9 fL (80.0-100.0); MEAN PLATELET VOLUME 9.3 fL (7.4-10.4); MONOCYTES 8.3 % (2-11); NEUTROPHILS 67.3 % (40-80); PLATELET COUNT 244 10x3/uL (130-400); RBC 4.77 10x6/uL (4.20-6.10); WBC 7.9 10x3/uL (4.8-10.8)
[2016-12-21 06:17] LABS: ANION GAP 12.6 mmol/L (8-16); CALCIUM 8.8 mg/dL (8.5-10.1); CARBON DIOXIDE 26.3 mmol/L (21.0-32.0); CREATININE - SERUM 1.1 mg/dL (0.6-1.3); HEMOGLOBIN A1C 9.1 % (4.8-6.0); POTASSIUM - SERUM 3.9 mmol/L (3.5-5.1)
--- NOTE | 2016-12-21 07:06 | NUR ---
NO CHANGES FROM PREVIOUS ASSESSMENT, CALL LIGHT IN REACH.
[2016-12-21 08:08] VITALS: BP 113/73
[2016-12-21 11:24] VITALS: BP 150/83
--- NOTE | 2016-12-21 12:23 | NUR ---
PRE-OPS GIVEN. TO STARTER MECHANIC BY BED.
--- NOTE | 2016-12-21 13:53 | NUR ---
BACK FROM TRUCK CHAUFFEUR.. VS WNL. LEFT GROIN STABLE WITH FEMSTOP ON. WILL CONT. PLAN OF CARE.
--- NOTE | 2016-12-21 14:27 | NUR ---
FEMSTOP REPOSITIONED BY SHEET FOLDER NURSE. WILL CONT. TO MONITOR.
[2016-12-21] MEDS ORDERED: BRILINTA90 MG PO (14:34)
--- NOTE | 2016-12-21 17:59 | NUR ---
BED REST UP. GROIN STABLE. IV AND TELEMETRY DCD. DC PLANS GIVEN. UPDERSTANDING VOICED.
--- NOTE | 2016-12-21 18:17 | NUR ---
ESCORTED TO CAR BY W/C.
== END 2016-12-21 18:18 | disposition home or self-care (01) ==
LOC: D.ER 20:17 → OBSVTIME 22:10 → D.M2 22:10
PROVIDERS: Emergency Medicine; Internal Medicine Cardiovascular Disease; ADMIT Family Medicine
DX: I25.110 Atherosclerotic heart disease of native coronary artery with unstable angina pectoris (principal); F17.203 Nicotine dependence unspecified, with withdrawal; Z86.73 Personal history of transient ischemic attack (TIA), and cerebral infarction without residual deficits; E66.9 Obesity, unspecified; I10 Essential (primary) hypertension; E10.40 Type 1 diabetes mellitus with diabetic neuropathy, unspecified; Z79.4 Long term (current) use of insulin; E78.5 Hyperlipidemia, unspecified

== ENCOUNTER 2016-12-26 18:09 | Emergency (ER) | payer MEDICARE ==
[2016-12-20 12:23] VITALS: BMI 35.8
[~2016-12-26 18:09] MED LIST changes: +BRILINTA90 MG PO; +NEURONTIN600 MG PO; +NOVOLOG MIX; +ZESTRIL40 MG PO
[2016-12-26 19:14] LABS: BASOPHILS 0.3 % (0-2); EOSINOPHILS 2.6 % (0-7); HEMATOCRIT 38.6 % (42.0-54.0); HEMOGLOBIN 12.4 g/dL (13.5-17.5); IMMATURE GRANULOCYTES 0.6 % (0-5); LYMPHOCYTES 13.8 % (15-50); MCH 27.4 pg (26.0-34.0); MCHC 32.1 g/dL (31.0-37.0); MCV 85.4 fL (80.0-100.0); MEAN PLATELET VOLUME 9.4 fL (7.4-10.4); MONOCYTES 6.6 % (2-11); NEUTROPHILS 76.1 % (40-80); RBC 4.52 10x6/uL (4.20-6.10); WBC 11.1 10x3/uL (4.8-10.8)
[2016-12-26 19:16] LABS: PLATELET COUNT 319 10x3/uL (130-400)
[2016-12-26 20:17] LABS: GLUCOSE 128 mg/dL (74-106); UREA NITROGEN 15 mg/dL (7-18); eGFR NON AFRICAN AMERICAN 81 mL/min (90-120)
[2016-12-26 20:18] LABS: ALKALINE PHOSPHATASE 68 U/L (46-116); ALT (SGPT) 35 U/L (10-68); CALC OSMOLALITY 278 mosm/kg (275-300); CALCIUM 9.9 mg/dL (8.5-10.1); CHLORIDE - SERUM 98 mmol/L (98-107); POTASSIUM - SERUM 4.2 mmol/L (3.5-5.1); SODIUM 138 mmol/L (136-145)
[2016-12-26 20:19] LABS: ALBUMIN 3.9 g/dL (3.4-5.0); PROTEIN - SERUM 7.7 g/dL (6.4-8.2)
== END 2016-12-27 01:23 | disposition home or self-care (01) ==
LOC: D.ER 18:09
PROVIDERS: Emergency Medicine
DX: S70.12XA Contusion of left thigh, initial encounter (principal); X58.XXXA Exposure to other specified factors, initial encounter; Y93.89 Activity, other specified; Y92.89 Other specified places as the place of occurrence of the external cause; E78.5 Hyperlipidemia, unspecified; I10 Essential (primary) hypertension; E11.9 Type 2 diabetes mellitus without complications

== ENCOUNTER 2017-02-22 12:23 | Emergency (ER) | payer MEDICARE ==
[2016-12-20 12:23] VITALS: BMI 35.8
[2017-02-22 13:35] LABS: BASOPHILS 0.3 % (0-2); EOSINOPHILS 2.6 % (0-7); HEMATOCRIT 37.7 % (42.0-54.0); HEMOGLOBIN 12.1 g/dL (13.5-17.5); IMMATURE GRANULOCYTES 0.3 % (0-5); LYMPHOCYTES 45.1 % (15-50); MCH 27.1 pg (26.0-34.0); MCHC 32.1 g/dL (31.0-37.0); MCV 84.5 fL (80.0-100.0); MEAN PLATELET VOLUME 8.8 fL (7.4-10.4); MONOCYTES 12.6 % (2-11); NEUTROPHILS 39.1 % (40-80); PLATELET COUNT 222 10x3/uL (130-400); RBC 4.46 10x6/uL (4.20-6.10); WBC 3.9 10x3/uL (4.8-10.8)
[2017-02-22 13:53] LABS: ALBUMIN 3.4 g/dL (3.4-5.0); ALKALINE PHOSPHATASE 60 U/L (46-116); ALT (SGPT) 36 U/L (10-68); BILIRUBIN - TOTAL 0.32 mg/dL (0.2-1.3); CALC OSMOLALITY 277 mosm/kg (275-300); CALCIUM 8.6 mg/dL (8.5-10.1); CARBON DIOXIDE 25.5 mmol/L (21.0-32.0); CHLORIDE - SERUM 101 mmol/L (98-107); CREATININE - SERUM 0.8 mg/dL (0.6-1.3); GLUCOSE 155 mg/dL (74-106); POTASSIUM - SERUM 3.9 mmol/L (3.5-5.1); PROTEIN - SERUM 7.2 g/dL (6.4-8.2); SODIUM 137 mmol/L (136-145); UREA NITROGEN 16 mg/dL (7-18); eGFR NON AFRICAN AMERICAN > 90 mL/min (90-120)
[2017-02-22 14:01] LABS: PRO BNP 26 pg/mL (0-125)
[2017-02-22 14:03] LABS: TROPONIN-I < 0.017 ng/mL (0.000-0.060)
== END 2017-02-22 14:43 | disposition home or self-care (01) ==
LOC: D.ER 12:23
PROVIDERS: Physician Assistant
DX: R07.9 Chest pain, unspecified (principal); R06.02 Shortness of breath; I10 Essential (primary) hypertension; E11.9 Type 2 diabetes mellitus without complications; D64.9 Anemia, unspecified; Z79.4 Long term (current) use of insulin

== ENCOUNTER 2017-06-02 20:07 | Outpatient (CLI) | payer MEDICARE, MEDICAID ==
--- NOTE | ~2017-06-02 | HEMODYNAMI ---
PATIENT:LYNDA KAHN MEDICAL RECORD: [id number] : 59 LOCATION:[facility] D.2112 ADMISSION DATE: 06/02/17 Generatedon:06/03/20179:31 Patient name: LYNDA KAHN Patient #: [id number] SSN: DO B: 1955 Date of study: 06/03/2017 Page: Of Hemodynamic Procedure Report Patient Data Patient Demographics Procedure consent was obtained First Name: LYNDA Gender: Male Last Name: FEMI : 1955 [facility] Initial: L Age: 61 year(s) Patient #: [id number] Race: Unknown Additional ID: [id number] Contact details [address]: [address] [place] [address] State: [place] City: [place] Zip code: [address] Past Medical History Allergies Allergen Reaction Date Comments Reported Other allergy 12/20/2016 Ibuprofen Other allergy 12/21/2016 ibuprofen Other allergy 06/03/2017 ibuprofen, diclofenac Admission Admission Data Admission Date: 06/02/2017 Admission Time: 21:34 Room #: D.2112 Procedure Procedure Types Cath Procedure Diagnostic Procedure [facility] w/Coronaries FFR/IVUS Intra-Coronary IVUS Initial PCI Procedure Coronary Stent Initial Miscellaneous Procedures Moderate Sedation up to 30 minutes Procedure Description Procedure Date Procedure Date: 06/03/2017 Procedure Start Time: 9:11 Procedure End Time: 9:28 Procedure Staff Name Function Johnathon Vazquez MD Performing Physician Pradeep Reyes RN Nurse Aaron Machuca RT Scrub Tika Counts RT Monitor Procedure Data Cath Procedure Fluoroscopy Diagnostic fluoroscopy Total fluoroscopy Time: 3.2 time: 3.2 min min Diagnostic fluoroscopy Total fluoroscopy dose: 888 dose: 888 mGy mGy Contrast Material Contrast Material Type Amount (ml) Isovue 300 82 Entry Location Entry Primary Successful Side Size Upsize Upsize Entry Closure Succes sful Closure Location (Fr) 1 (Fr) 2 (Fr) Remarks Device Remarks Femoral Right 5 Fr 6 Fr Exoseal artery Short Estimated blood loss: 10 ml Diagnostic catheters Device Type Used For End Catheter Placement Cordis 5Fr Pigtail LV Angiography Catheter (MP) Cordis 5Fr JL 4.0 Left Coronary Catheter (MP) Angiography Cordis 5Fr 3DRC Catheter Right Coronary (MP) Angiography Procedure Complications No complications Procedure Medications Medication Administration Route Dosage 0.9% NaCl I.V. 100 ml/hr Oxygen NC 2 l/min Heparin Flush Bag added to field 2 bags (1000units/500ml NS) Lidocaine 2% added to field 20 Versed I.V. 1 mg Fentanyl I.V. 50 mcg Fentanyl I.V. 50 mcg Versed I.V. 1 mg Heparin Bolus I.V. 4000 units Integrilin (Bolus I.V. 10.7 ml 2mg/ml) Integrilin (Bolus wasted 9.3 ml 2mg/ml) Plavix P.O. 600 mg Hemodynamics Rest Heart Rate: 61 (bpm) Snapshots Pre Cath Intra NCS Post Cath Vital Signs Time Heart Resp SPO2 etCO2 NIBP (mmHg) Rhythm Pain Sedation Rate (ipm) (%) (mmHg) Status Level (bpm) 8:52:31 61 21 97 30 149/88(118) NSR 0 (11) 10(A) , No pain 8:56:57 57 18 99 35 153/86(119) NSR 0 (11) 10(A) , No pain 9:01:18 60 15 98 41.8 142/78(113) NSR 0 (11) 10(A) , No pain 9:05:36 57 14 98 43.3 139/78(100) NSR 0 (11) 10(A) , No pain 9:09:54 59 14 98 41.8 135/80(111) NSR 0 (11) 9(A) , No pain 9:14:10 61 14 98 42.5 136/81(97) NSR 0 (11) 9(A) , No pain 9:18:30 61 16 98 44.8 138/80(106) NSR 0 (11) 9(A) , No pain 9:22:50 64 16 98 44 137/75(99) NSR 0 (11) 10(A) , No pain 9:27:08 60 12 98 43.3 140/76(99) NSR 0 (11) 10(A) , No pain Medications Time Medication Route Dose Verified Delivered Reason Notes Effectiveness by by 9:02:29 0.9% NaCl I.V. 100 Babar Babar Per physician ml/hr Arturo Morris RN 9:02:40 Oxygen NC 2 Babar Babar Per physician l/min Arturo Morris RN 9:02:52 Heparin Flush added 2 Babar Babar used for Bag to bags Arturo Morris procedure (1000units/500ml field RN NS) 9:03:05 Lidocaine 2% added 20ml Babar Babar for local to vial Arturo Morris anesthetic field RN 9:05:12 Versed I.V. 1 mg Babar Babar for sedation Arturo Morris RN 9:05:26 Fentanyl I.V. 50 Babar Babar for sedation mcg Arturo Morris RN 9:11:00 Fentanyl I.V. 50 Babar Babar for sedation mcg Arturo Morris RN 9:11:11 Versed I.V. 1 mg Babar Babar for sedation Arturo Morris RN 9:17:56 Heparin Bolus I.V. 4000 Babar Babar for units Arturo Morris anticoagulation RN 9:23:05 Integrilin I.V. 10.7 Babar Babar for (Bolus 2mg/ml) ml Arturo Morris antiplatelet RN therapy 9:23:32 Integrilin wasted 9.3 Babar Babar to sharp's (Bolus 2mg/ml) ml Arturo Morris RN 9:25:22 Plavix P.O. 600 Babar Babar for mg Arturo Morris antiplatelet RN therapy Procedure Log Time Note 8:31:53 Tika Counts RT(R) sent for patient. Start room use. 8:31:54 Time tracking: Regular hours 8:31:58 Plan of Care:Hemodynamics will remain stable., Cardiac rhythm will remain stable., Comfort level will be maintained., Respiratory function will remain adequate., Patient/ family verbilizes understanding of procedure., Procedure tolerated without complication., Recovers from procedure without complications.. 8:47:56 Patient received from Med II to CCL 2 Alert and oriented. Tansferred to table in Supine position. 8:47:57 Warm blankets applied, and precious hugger turned on for patient comfort. 8:47:57 Correct patient and procedure confirmed by team. 8:47:59 Signed procedure consent form obtained from patient. 8:48:00 ECG and BP/O2 sat monitors applied to patient. 8:51:16 Vital chart was started 8:51:20 Rhythm: sinus rhythm 8:51:21 Full Disclosure recording started 8:51:26 H&P Date Dictated: 06/02/2017 Within 30 days and on chart.. 8:51:27 Pre-procedure instructions explained to patient. 8:51:28 Pre-op teaching completed and patient verbalized understanding. 8:51:30 Family unavailable. 8:51:31 Patient NPO since Midnight. 8:51:46 Patient allergic to Other allergyibuprofen, diclofenac 8:51:48 Is the patient allergic to Iodine/contrast media? No. 8:51:50 Is patient on blood thinner?No 8:51:55 Patient diabetic? Yes. 8:51:57 If diabetic: On Metformin? Yes 8:51:59 If on Metformin: Last Dose? 06/02/2017 8:52:02 Previous problem with sedation/anesthesia? No ? 8:52:03 Snore? Yes 8:52:31 Sleep apnea? Yes 8:52:32 Deviated septum? No 8:52:33 Opens mouth fully? Yes 8:52:34 Sticks out tongue? Yes 8:52:36 Airway obstruction? No ? 8:52:39 Dentures? Yes OUT 8:52:45 Pre procedure: right dorsailis pedis pulse 2+ Normal; easily identifiable; not easily obliterated 8:52:49 Patient pain scale 0/10 ?. 8:53:01 IV patent on arrival in left antecubital with 0.9% NaCl at KVO. 8:53:04 Lab results completed and on chart. 8:53:07 Right groin area was prepped with chlora-prep and draped in sterile fashion 8:53:08 Alarms reviewed by R. N. 8:53:08 Sharps counted by scrub and verified by R.N. 8:53:12 Use device set Femoral Dx 8:53:13 Acist Syringe opened to sterile field. 8:53:13 Bag Decanter opened to sterile field. 8:53:13 Medline Cath Pack opened to sterile field. 8:53:13 Terumo 5Fr [place] Sheath opened to sterile field. 8:53:14 St Monster 260cm J .035 wire opened to sterile field. 8:53:15 Acist Hand Control opened to sterile field. 8:53:15 Acist Manifold opened to sterile field. 8:53:15 Diagnostic Infinity 5Fr Multipack catheter opened to sterile field. 8:53:16 Tegaderm 4 x 4 opened to sterile field. 8:56:11 Baseline sample Acquired. 9:01:39 PERCUTANEOUS ENTRY 19GA needle opened to sterile field. 9:02:29 0.9% NaCl 100 ml/hr I.V. was administered by Babar Morris; Per physician; 9:02:40 Oxygen 2 l/min NC was administered by Babar Morris; Per physician; 9:02:52 Heparin Flush Bag (1000units/500ml NS) 2 bags added to field was administered by Babar Morris; used for procedure; 9:03:05 Lidocaine 2% 20ml vial added to field was administered by Babar Morris; for local anesthetic; 9:04:45 Final Timeout: patient, procedure, and site verified with staff and physician. All members of the team are in agreement. 9:04:46 Right groin site verified by team. 9:04:49 Physical assessment completed. ASA score P 2 - A patient with mild systemic disease as per Johnathon Vazquez MD. 9:04:51 Sedation plan: IV Moderate Sedation Versed, Fentanyl 9:05:12 Versed 1 mg I.V. was administered by Babar Morris; for sedation; 9:05:26 Fentanyl 50 mcg I.V. was administered by Babar Morris; for sedation; 9:09:04 Zero performed for pressure channel P1 9:11:00 Fentanyl 50 mcg I.V. was administered by Babar Morris; for sedation; 9:11:11 Versed 1 mg I.V. was administered by Babar Morris; for sedation; 9:11:19 Procedure started. 9:11:22 Local anesthetic to right femoral artery with Lidocaine 2% by Johnathon Vazquez MD.INITIAL ACCESS ONLY 9:12:01 A 5 Fr sheath was inserted into the Right Femoral artery 9:12:14 A Cordis 5Fr Pigtail Catheter (MP) was advanced over the wire and used for LV Angiography. 9:13:03 LV gram done using BROWN 9:13:15 EF : 60 % 9:13:19 Injector settings: Ml/sec: 5, Volume: 15, 9:13:21 Catheter removed. 9:13:28 A Cordis 5Fr JL 4.0 Catheter (MP) was advanced over the wire and used for Left Coronary Angiography. 9:15:09 Catheter removed. 9:15:30 A Cordis 5Fr 3DRC Catheter (MP) was advanced over the wire and used for Right Coronary Angiography. 9:16:01 Catheter removed. 9:16:48 Merit BasixCompak Inflation Kit opened to sterile field. 9:16:50 [place] IVUS Catheter opened to sterile field. 9:16:51 Terumo 6Fr [place] Sheath opened to sterile field. 9:17:05 [employer] PT Graphix J 300cm 0.014 guide wire opened to sterile field. 9:17:25 Sheath upsized to a 6 Fr Short. 9:17:35 6 Fr XB 3.5 guide catheter was inserted over the wire 9:17:56 Heparin Bolus 4000 units I.V. was administered by Babar Morris; for anticoagulation; 9:18:22 Graphix wire advanced. 9:18:50 IVUS catheter advanced over wire. 9:21:23 IVUS pass to LAD lesion performed. 9:21:24 IVUS catheter removed over wire. 9:22:14 Cordis 6FR XB 3.5 guide catheter opened to sterile field. 9:22:42 Inflation Number: 1 A David OTW 4.0 x 12 stent was prepped and advanced across the Mid LAD. The stent was deployed at 23 ROSA MARIA for 0:14 (min:sec). 9:23:05 Integrilin (Bolus 2mg/ml) 10.7 ml I.V. was administered by Babar Morris; for antiplatelet therapy; 9:23:09 Inflation number: 2 The stent balloon was then re-inflated across the Mid LAD to 25 ROSA MARIA for 0:10 (min:sec). 9:23:19 Stent catheter was removed intact over wire. 9:23:20 Wire removed. 9:23:20 Guide catheter removed. 9:23:32 Integrilin (Bolus 2mg/ml) 9.3 ml wasted was administered by Babar Morris; to sharp's; 9:23:33 Sheath removed intact; hemostasis achieved with Exoseal to the Right Femoral artery. 9:23:36 Procedure ended.(Physican Out) 9:23:47 Fluoroscopy time 03.20 minutes. 9:23:50 Flurop Dose total: 888 9:23:50 Fluoroscopy dose: 888 mGy 9:23:54 Contrast amount:Isovue 300 82ml. 9:23:55 Sharps counted by scrub and verified by R.N. 9:23:56 Insertion/operative site no bleeding no hematoma. 9:23:59 Post-op/insertion site Right Femoral artery dressed using a 4 x 4 and Tegaderm. 9:24:01 Post right femoral artery:stable, clean and dry 9:24:03 Post Procedure Pulses reassessed and unchanged 9:24:06 Post-procedure physical assessment completed. ASA score P 2 - A patient with mild systemic disease as per Johnathon Vazquez MD. 9:24:08 Post procedure rhythm: unchanged. 9:24:10 Estimated blood loss: 10 ml 9:24:13 Post procedure instruction explained to patient.Patient verbalizes understanding. 9:24:13 Patient needs reinforcement of post procedure teaching. 9:24:31 Procedure type changed to Cath procedure, Diagnostic procedure, LHC, LHC w/Coronaries, FFR/IVUS, Intra-Coronary IVUS Initial, PCI procedure, Coronary Stent Initial, Miscellaneous Procedures, Moderate Sedation up to 30 minutes 9:24:37 Procedure Complication : No complications 9:25:22 Plavix 600 mg P.O. was administered by Babar Morris; for antiplatelet therapy; 9:27:59 Cordis 6Fr Exoseal opened to sterile field. 9:28:35 Procedure and supply charges have been captured, reviewed, submitted and are correct. 9:28:35 Vital chart was stopped 9:28:36 See physician's report for complete and final results. 9:28:38 Report given to PCU. 9:28:42 Patient transfered to PCU with Bed. 9:28:49 Procedure ended. 9:28:49 Full Disclosure recording stopped 9:28:54 End room use (Document Last) Intervention Summary Intervention Notes Time ActionType Lesion and Equipment Action# Pressure Duration Attributes Used 9:22:42 Place stent Mid LAD Arnold OTW 1 23 00:14 4.0 x 12 stent 9:23:09 Reinflate Mid LAD David OTW 2 25 00:10 stent 4.0 x 12 balloon stent Device Usage Item Name Manufacture Quantity Catalog Number Hospital Part Current Min imal Lot# / Charge Number Stock Stock Serial# Code Acist Acist 1 [id number] [id number] 117434 750296 20 Syringe Medical [employer] Inc Bag Decanter Microtek 1 [id number] 71024 868506 5 Medical Inc. Medline Cath Cardinal 1 [id number] 005834 24800 399939 5 Pack Health Terumo 5Fr Terumo 1 [id number] 487357 078418 046369 [address] Monster St Monster 1 799295 802772 923556 593708 30 260cm J .035 wire Acist Hand Acist 1 31697 910976 981222 563837 5 Control Medical Systems Inc Acist Acist 1 22231 793962 742231 589406 5 Manifold Medical Systems Inc Diagnostic Cardinal 1 [id number] 983116 51918 870105 30 Infinity 5Fr Health Multipack catheter Tegaderm 4 x 3M 1 [id number] 012867 314496 317286 5 4 PERCUTANEOUS [facility] 1 [id number] 291103 947378 5 ENTRY 19GA needle Cordis 5Fr Cardinal 1 207033 5 Pigtail Health Catheter (MP) Cordis 5Fr Cardinal 1 128875 5 JL 4.0 Health Catheter (MP) Cordis 5Fr Cardinal 1 254294 5 3D Health Catheter (MP) Merit Merit 1 [id number] 605481 250243 278082 15 Printed Piece Medical Inflation Kit [place] 1 [id number] 718095 042287 092717 8 [place] IVUS Catheter Terumo 6Fr Terumo 1 [id number] 529130 864499 507358 40 [place] Sheath Evans Sci Evans 1 [id number] 216649 532258 016051 5 PT Graphix J Scientific 300cm 0.014 guide wire Cordis 6FR Cardinal 1 [id number] 641645 529329 922067 2 XB 3.5 guide Health catheter David OTW 4.0 Medtronic 1 [id number] 495697 5933656 979264 5 [id number] x 12 stent Cordis 6Fr Cardinal 1 [id number] 049506 334637 509529 10 [facility] Health Signature Audit [place] Stage Time Signature Unsigned Intra-Procedure 06/03/2017 Tika 9:30:59 AM Counts RT(R) Signatures Monitor : Tika Signature : Counts RT Date : Time : [address] [place] [address]
--- NOTE | ~2017-06-02 | HEMODYNAMI ---
PATIENT:LYNDA KAHN MEDICAL RECORD: [id number] : 59 LOCATION:[facility] D.2112 ADMISSION DATE: 06/02/17 Generatedon:06/04/201710:14 Patient name: LYNDA KAHN Patient #: [id number] SSN: DO B: 1955 Date of study: 06/04/2017 Page: Of Hemodynamic Procedure Report Patient Data Patient Demographics Procedure consent was obtained First Name: LYNDA Gender: Male Last Name: FEMI : 1955 [facility] Initial: L Age: 61 year(s) Patient #: [id number] Race: Unknown Additional ID: [id number] Contact details [address]: [address] [place] [address] State: [place] City: [place] Zip code: [address] Past Medical History Allergies Allergen Reaction Date Comments Reported Other allergy 12/20/2016 Ibuprofen Other allergy 12/21/2016 ibuprofen Other allergy 06/03/2017 ibuprofen, diclofenac Other allergy 06/04/2017 ibuprofen. diclofenac Admission Admission Data Admission Date: 06/02/2017 Admission Time: 21:34 Arrival Date: 06/02/2017 Arrival Time: 21:34 Admit Source: Other Insurance Payor: Medicare Room #: D.2112 Procedure Procedure Types Cath Procedure PCI Procedure Coronary Stent Initial Miscellaneous Procedures Moderate Sedation up to 15 minutes Procedure Description Procedure Date Procedure Date: 06/04/2017 Procedure Start Time: 10:03 Procedure End Time: 10:10 Procedure Staff Name Function Johnathon Vazquez MD Performing Physician Alejandrina Neil RT Scrub Sherie Briones RN Nurse Amarilis Aguilar RT Monitor Procedure Data Cath Procedure Fluoroscopy Diagnostic fluoroscopy Total fluoroscopy Time: 1.3 time: 1.3 min min Diagnostic fluoroscopy Total fluoroscopy dose: 319 dose: 319 mGy mGy Contrast Material Contrast Material Type Amount (ml) Isovue 300 40 Entry Location Entry Primary Successful Side Size Upsize Upsize Entry Closure Succes sful Closure Location (Fr) 1 (Fr) 2 (Fr) Remarks Device Remarks Femoral Left 6 Fr Exoseal artery Short Estimated blood loss: 10 ml Procedure Complications No complications Procedure Medications Medication Administration Route Dosage Oxygen NC 2 l/min Lidocaine 2% added to field 20 Heparin Flush Bag added to field 2 bags (1000units/500ml NS) 0.9% NaCl I.V. 100 ml/hr Versed I.V. 2 mg Fentanyl I.V. 100 mcg Heparin Bolus I.V. 4000 units Versed I.V. 2 mg Fentanyl I.V. 100 mcg Hemodynamics Rest Heart Rate: 73 (bpm) Snapshots Pre Cath Intra NCS Post Cath Vital Signs Time Heart Resp SPO2 etCO2 NIBP (mmHg) Rhythm Pain Sedation Rate (ipm) (%) (mmHg) Status Level (bpm) 9:34:09 79 21 96 35.4 134/87(101) NSR 0 (11) 10(A) , No pain 9:38:25 72 18 96 36.9 134/82(108) NSR 0 (11) 10(A) , No pain 9:42:39 75 18 95 35.4 116/82(97) NSR 0 (11) 10(A) , No pain 9:46:50 69 18 96 37.7 116/75(96) NSR 0 (11) 10(A) , No pain 9:51:02 73 17 95 36.9 121/78(103) NSR 0 (11) 10(A) , No pain 9:55:16 69 15 94 40.7 121/78(93) NSR 0 (11) 10(A) , No pain 9:59:30 74 17 94 36.9 125/81(104) NSR 0 (11) 9(A) , No pain 10:03:44 71 16 96 42.2 127/80(92) NSR 0 (11) 9(A) , No pain 10:08:00 76 16 96 39.2 110/75(93) NSR 0 (11) 9(A) , No pain 10:13:16 75 15 96 8.3 123/78(105) NSR 0 (11) 10(A) , No pain Medications Time Medication Route Dose Verified Delivered Reason Notes Effectiveness by by 9:38:19 Oxygen NC 2 Johnathon Rehman used for l/min Taylor Briones environmental emergencies planner 9:38:29 Lidocaine 2% added 20ml Johnathon Diego for local to vial Taylor Vazquez MD anesthetic field 9:38:35 Heparin Flush added 2 Johnathon Crowrey used for Bag to bags Taylor Vazquez MD procedure (1000units/500ml field NS) 9:38:44 0.9% NaCl I.V. 100 Johnathon Rehman Per physician ml/hr Taylor Briones RN 9:55:23 Versed I.V. 2 mg Johnathon Sangeethaie for sedation Taylor Briones RN 9:55:28 Fentanyl I.V. 100 Johnathon Sangeethaie for sedation mcg Taylor Briones RN 10:03:55 Heparin Bolus I.V. 4000 Johnathon Buffie for verifi ed units Taylor Briones RN anticoagulation with dr vazquez 10:05:27 Versed I.V. 2 mg Johnathon Vivasie for sedation Taylor Briones RN 10:05:30 Fentanyl I.V. 100 Johnathonkathy Vivasie for sedation mcg Taylor Briones RN Procedure Log Time Note 9:05:27 Informed consent obtained and on chart 9:05:37 Admit Source: Other 9:07:10 Sherie Briones RN sent for patient. Start room use. 9:07:12 Time tracking: Regular hours 9:07:17 Plan of Care:Hemodynamics will remain stable., Cardiac rhythm will remain stable., Comfort level will be maintained., Respiratory function will remain adequate., Patient/ family verbilizes understanding of procedure., Procedure tolerated without complication., Recovers from procedure without complications.. 9:09:44 Arrival Date: 06/02/2017 9:34:00 PM 9:09:52 Insurance Payor : Medicare 9:25:26 Patient received from PCU to CCL 2 Alert and oriented. Tansferred to table in Supine position. 9:25:27 Warm blankets applied, and precious hugger turned on for patient comfort. 9:25:28 Correct patient and procedure confirmed by team. 9:25:28 ECG and BP/O2 sat monitors applied to patient. 9:33:05 Vital chart was started 9:33:06 Baseline sample Acquired. 9:33:24 Rhythm: sinus tachycardia 9:33:27 Full Disclosure recording started 9:33:35 H&P Date Dictated: 06/03/2017 Within 30 days and on chart.. 9:33:37 Pre-procedure instructions explained to patient. 9:33:41 Pre-op teaching completed and patient verbalized understanding. 9:34:08 Family unavailable. 9:34:10 Patient NPO since Midnight. 9:34:43 Patient allergic to Other allergyibuprofen. diclofenac 9:34:46 Is the patient allergic to Iodine/contrast media? No. 9:34:51 Was the patient premedicated? Yes 9:34:52 Is patient on blood thinner?Yes 9:34:55 ACC The patient was administered the following blood thiners within the last 24 hours: ACCPlavix 9:35:09 Snore? Yes 9:35:10 Sleep apnea? Yes 9:35:22 Dentures? No ? 9:35:26 Patient pain scale 0/10 ?. 9:35:32 IV patent on arrival in left forearm with 0.9% NaCl at [facility]. 9:35:39 Lab results completed and on chart. 9:35:43 Left groin area was prepped with chlora-prep and draped in sterile fashion 9:35:44 Alarms reviewed by R. N. 9:35:45 Sharps counted by scrub and verified by R.N. 9:35:47 Physician paged 9:38:19 Oxygen 2 l/min NC was administered by Sherie Briones RN; used for procedure; 9:38:29 Lidocaine 2% 20ml vial added to field was administered by Johnathon Vazquez MD; for local anesthetic; 9:38:35 Heparin Flush Bag (1000units/500ml NS) 2 bags added to field was administered by Johnathon Vazquez MD; used for procedure; 9:38:44 0.9% NaCl 100 ml/hr I.V. was administered by Sherie Briones RN; Per physician; 9:46:16 Zero performed for pressure channel P1 9:54:13 Physician arrived 9:54:14 --------ALL STOP TIME OUT------ 9:54:14 Final Timeout: patient, procedure, and site verified with staff and physician. All members of the team are in agreement. 9:54:16 Left groin site verified by team. 9:54:20 Physical assessment completed. ASA score P 2 - A patient with mild systemic disease as per Johnathon Vazquez MD. 9:54:24 Sedation plan: IV Moderate Sedation Versed, Fentanyl 9:54:49 Use device set Femoral PCI 9:54:50 Acist Syringe opened to sterile field. 9:54:51 Acist Hand Control opened to sterile field. 9:54:51 Bag Decanter opened to sterile field. 9:54:52 Medline Cath Pack opened to sterile field. 9:54:52 Terumo 6Fr Arona Sheath opened to sterile field. 9:54:53 St Monster 260cm J .035 wire opened to sterile field. 9:54:53 Merit BasixCompak Inflation Kit opened to sterile field. 9:54:54 Acist Manifold opened to sterile field. 9:54:54 Tegaderm 4 x 4 opened to sterile field. 9:55:23 Versed 2 mg I.V. was administered by Sherie Briones RN; for sedation; 9:55:28 Fentanyl 100 mcg I.V. was administered by Sherie Briones RN; for sedation; 10:03:46 Procedure started. 10:03:55 Heparin Bolus 4000 units I.V. was administered by Sherie Briones RN; for anticoagulation; verified with dr vazquez 10:03:56 Local anesthetic to left femerol artery with Lidocaine 2% by Johnathon Vazquez MD.INITIAL ACCESS ONLY 10:04:07 A 6 Fr Short sheath was inserted into the Left Femoral artery 10:04:28 Neoconix Launcher 6Fr HS I guide catheter opened to sterile field. 10:04:48 [place] [email or web address] Choice PT Extra Support 182cm wire opened to sterile field. 10:05:03 6 Fr HS1 guide catheter was inserted over the wire 10:05:09 Pt Graphics wire advanced. 10:05:22 Wire advanced across lesion. 10:05:27 Versed 2 mg I.V. was administered by Sherie Briones RN; for sedation; 10:05:30 Fentanyl 100 mcg I.V. was administered by Sherie Briones RN; for sedation; 10:07:32 Inflation Number: 1 A Faunsdale RX 4.0 x 18 stent was prepped and advanced across the Mid RCA. The stent was deployed at 17 ROSA MARIA for 0:10 (min:sec). 10:07:44 Stent catheter was removed intact over wire. 10:07:44 Wire removed. 10:07:45 Guide catheter removed. 10:07:52 Cordis 6Fr Exoseal opened to sterile field. 10:08:20 Sheath removed intact; hemostasis achieved with Exoseal to the Left Femoral artery. 10:08:29 Procedure ended.(Physican Out) 10:08:39 Fluoroscopy time 01.30 minutes. 10:08:44 Flurop Dose total: 319 10:08:44 Fluoroscopy dose: 319 mGy 10:08:49 Contrast amount:Isovue 300 40ml. 10:08:51 Sharps counted by scrub and verified by R.N. 10:08:53 Insertion/operative site no bleeding no hematoma. 10:08:55 Post Procedure Pulses reassessed and unchanged 10:09:00 Post procedure rhythm: unchanged. 10:09:03 Estimated blood loss: 10 ml 10:09:05 Post procedure instruction explained to patient.Patient verbalizes understanding. 10:09:14 Procedure type changed to Cath procedure, PCI procedure, Coronary Stent Initial, Miscellaneous Procedures, Moderate Sedation up to 15 minutes 10:09:16 Procedure and supply charges have been captured, reviewed, submitted and are correct. 10:09:35 Procedure Complication : No complications 10:10:33 Vital chart was stopped 10:10:33 See physician's report for complete and final results. 10:10:36 Report given to [facility]. 10:10:40 Patient transfered to [facility] with Bed. 10:10:42 Procedure ended. 10:10:42 Full Disclosure recording stopped 10:10:52 ACC-PCI Only Patient was given prescriptions, or instructed by Johnathon Vazquez MD to start/continue the following medications upon discharge: Plavix 10:10:58 End room use (Document Last) Intervention Summary Intervention Notes Time ActionType Lesion and Equipment Action# Pressure Duration Attributes Used 10:07:32 Place stent Mid RCA David RX 1 17 00:10 4.0 x 18 stent Device Usage Item Name Manufacture Quantity Catalog Number Hospital Part Current Mini mal Lot# / Charge Number Stock Stock Serial# Code Acist Acist 1 78378 055604 329642 189566 20 Syringe Medical Systems Inc Acist Hand Acist 1 25101 456947 901354 407043 5 Control Medical Systems Inc Bag Microtek 1 2002S 371882 69048 319110 5 Decanter Medical Inc. Medline Cardinal 1 [id number] 864092 88967 831132 5 Cath Blue [employer] Terumo 6Fr Terumo 1 [id number] 075668 524216 268620 [address] Monster St Monster 1 406371 628211 640481 602574 30 260cm J .035 wire Merit Merit 1 [id number] 387006 558288 394813 15 Spice Online Retail Medical Inflation Kit Acist Acist 1 77510 513511 846298 762636 5 Clzby Inc Tegaderm 4 3M 1 1626W 635835 184945 632380 5 x 4 Medtronic Medtronic 1 [id number] 582813 07620 699312 1 Launcher 6Fr HS I guide catheter [place] Sci [place] 1 [id number] 588508 112476 649158 5 Choice PT Scientific Extra Support 182cm wire Faunsdale RX 4.0 Medtronic 1 [id number] 227563 0558953 281473 5 [id number] x 18 stent Cordis 6Fr Cardinal 1 EX600 242953 743558 282352 10 [facility] IntelePeer Signature Audit [place] Stage Time Signature Unsigned Intra-Procedure 06/04/2017 Amarilis Aguilar 10:14:26 AM RT(R) Signatures Monitor : Amarilis Aguilar Signature : RT Date : Time : [id number] [place] [address]
[2017-06-02 20:35] LABS: BASOPHILS 0.5 % (0-2); EOSINOPHILS 5.7 % (0-7); HEMATOCRIT 41.9 % (42.0-54.0); HEMOGLOBIN 13.7 g/dL (13.5-17.5); IMMATURE GRANULOCYTES 0.3 % (0-5); LYMPHOCYTES 27.7 % (15-50); MCH 26.3 pg (26.0-34.0); MCHC 32.7 g/dL (31.0-37.0); MCV 80.6 fL (80.0-100.0); MEAN PLATELET VOLUME 9.4 fL (7.4-10.4); MONOCYTES 7.1 % (2-11); NEUTROPHILS 58.7 % (40-80); PLATELET COUNT 212 10x3/uL (130-400); RDW 14.4 % (11.5-14.5); WBC 7.6 10x3/uL (4.8-10.8)
[2017-06-02 20:49] LABS: ALBUMIN 3.7 g/dL (3.4-5.0); ALKALINE PHOSPHATASE 63 U/L (46-116); ALT (SGPT) 29 U/L (10-68); BILIRUBIN - TOTAL 0.17 mg/dL (0.2-1.3); CALC OSMOLALITY 277 mosm/kg (275-300); CALCIUM 9.1 mg/dL (8.5-10.1); CARBON DIOXIDE 26.4 mmol/L (21.0-32.0); CHLORIDE - SERUM 99 mmol/L (98-107); CREATININE - SERUM 0.9 mg/dL (0.6-1.3); GLUCOSE 123 mg/dL (74-106); PROTEIN - SERUM 7.5 g/dL (6.4-8.2); SODIUM 138 mmol/L (136-145); UREA NITROGEN 14 mg/dL (7-18); eGFR NON AFRICAN AMERICAN > 90 mL/min (90-120)
[2017-06-02 20:59] LABS: CKMB 1.2 U/L (0.0-3.6); CREATINE KINASE 100 UL (21-232)
[2017-06-02 21:04] LABS: TROPONIN-I < 0.017 ng/mL (0.000-0.060)
--- NOTE | 2017-06-02 22:30 | NUR ---
PT ARRIVED FROM ER VIA WHEELCHAIR TO ROOM 2111. AMBULATORY, UP TO BATHROOM 1ST, THEN SETTLED HIMSELF IN BED. ADMISSION HISTORY AND PHYSICAL COMPLETED. ATTEMPTED TO REVIEWE HOME MEDS WITH PATIENT, BUT HE HAS POOR RECALL AND JUST KEEPS ASKING FOR FOOD. COMPARISOM OF ER MED LIST WITH PREVIOUS D/C MED LIST FROM FEBRUARY 2017 SHOW MANY CHANGES/DOSE INCREASES. EMAR WILL HAVE TO BE REVIEWED AND UPDATED BY MD. DID PROVIDE PT WITH SOUP/CRACKERS/JUICE AND INSTRUCTED ON NPO AFTER MIDNIGHT.
[2017-06-02 23:53] VITALS: BP 138/86
[2017-06-03 03:42] VITALS: BP 138/86; BMI 37.0
[2017-06-03] MEDS ORDERED: HUMALOG MIX 75/10 ML (04:33)
[2017-06-03] MEDS ORDERED: AMBIEN10 MG PO (04:33)
[2017-06-03] MEDS ORDERED: ZOLOFT50 MG PO (04:36)
--- NOTE | 2017-06-03 05:00 | NUR ---
PT HAS RESTED THROUGH THE NIGHT. SR PER TELEMETRY. NO EPISODES OF CHEST PAIN, NITRO OINTMENT HELD. CPOC.
[2017-06-03 05:20] VITALS: BP 96/66
[2017-06-03 07:08] LABS: BASOPHILS 0.3 % (0-2); EOSINOPHILS 6.6 % (0-7); HEMATOCRIT 42.6 % (42.0-54.0); HEMOGLOBIN 13.6 g/dL (13.5-17.5); IMMATURE GRANULOCYTES 0.3 % (0-5); LYMPHOCYTES 29.8 % (15-50); MCHC 31.9 g/dL (31.0-37.0); MCV 81.3 fL (80.0-100.0); MEAN PLATELET VOLUME 9.4 fL (7.4-10.4); MONOCYTES 7.6 % (2-11); NEUTROPHILS 55.4 % (40-80); PLATELET COUNT 206 10x3/uL (130-400); RBC 5.24 10x6/uL (4.20-6.10); RDW 14.4 % (11.5-14.5); WBC 7.3 10x3/uL (4.8-10.8)
[2017-06-03 07:16] LABS: CALC OSMOLALITY 275 mosm/kg (275-300); CALCIUM 8.8 mg/dL (8.5-10.1); CARBON DIOXIDE 26.8 mmol/L (21.0-32.0); CHLORIDE - SERUM 101 mmol/L (98-107); CREATININE - SERUM 0.9 mg/dL (0.6-1.3); GLUCOSE 161 mg/dL (74-106); POTASSIUM - SERUM 3.9 mmol/L (3.5-5.1); SODIUM 137 mmol/L (136-145); UREA NITROGEN 11 mg/dL (7-18); eGFR NON AFRICAN AMERICAN > 90 mL/min (90-120)
[2017-06-03 07:17] LABS: TROPONIN-I < 0.017 ng/mL (0.000-0.060)
--- NOTE | 2017-06-03 07:39 | NUR ---
AM ROUNDS - PT IS IN BED AND APPEARS TO BE SLEEPING WITH EQUAL AND NON LABORED BREATHING. MONITOR SHOWING SR, HR 87. IV TO LEFT AC, SL. BED AT LOWEST POSITION. CALL PALACIOS IN USE/REACH. SIDE RAILS UP X2. PT IS ON ROOM AIR. WILL CONTINUE TO MONITOR
[2017-06-03 08:23] VITALS: BP 104/57
--- NOTE | 2017-06-03 08:39 | NUR ---
CONCENTS ARE SIGNED AND PLACED IN CHART. PT HAS BEEN PREOPED.
[2017-06-03 12:43] VITALS: BMI 37.0
--- NOTE | 2017-06-03 13:32 | NUR ---
PT IS IN BED ON HIS BACK AT THIS TIME. PT HAD A STENT PLACED TODAY. [facility] GROIN DRESSING CLEAN, DRY AND INTACT. WILL CONTINUE TO MONITOR
[2017-06-03 15:53] VITALS: BP 126/77
[2017-06-03 19:00] VITALS: BP 121/72
--- NOTE | 2017-06-03 20:00 | NUR ---
ROUNDING NOTE: AT START OF SHIFT, PT IS SITTING UP IN BED WITH TV ON. PT IS ALERT AND ORIENTED X3. PT DENIES ANY CP, SOB, DIZZINESS, OR NAUSEA. PT DOES REPORT HAVING A SEVERE HEADACHE, AND HIS SKIN APPEARS FLUSHED. PT IS IN SINUS RHYHTM W/ HR OF 80 ON THE MONITOR. HIS RIGHT GROIN CATH SITE IS SOFT W/ A STRONG PULSE AND DRESSING IS C/D/I. PT IS CONCERNED THAT HE HAS NOT BEEN TAKING HIS HOME INSULIN. HE STATES THAT HE USUALLY TAKE 60 UNITS OF 70/30 QAM AND THEN HE IS ALSO ON A SLIDING SCALE. DISCUSSED PT'S COMPLAINTS WITH CHARGE NURSE, RAFA. ORDERS OBTAINED FOR TYLENOL FOR SRINIVASAN AND INTERMEDIATE SLIDING SCALE TO TREAT PT'S DIABETES. WILL CONT TO MONITOR.
[2017-06-04] VITALS: BP 122/74
[2017-06-04 04:00] VITALS: BP 125/81
--- NOTE | 2017-06-04 05:29 | NUR ---
PT HAS BEEN SLEEPING THROUGHOUT THE NIGHT WITHOUT COMPLAINTS. WILL CONT TO MONITOR.
--- NOTE | 2017-06-04 07:04 | NUR ---
AM ROUNDS- PT IN BED, WITH EYES CLOSED, AROUSES EASILY TO VOICE. RESP EVEN AND REGULAR, PT DENIES ANY NEEDS AT THIS TIME. BED LOW AND WHEELS LOCKED, CALL LIGHT IN REACH, NAD NOTED, WILL CONTINUE PLAN OF CARE.
[2017-06-04 08:35] VITALS: BP 112/64
--- NOTE | 2017-06-04 08:47 | NUR ---
PRE-OP MEDS GIVEN AT THIS TIME. PT IN BED, DENIES ANY NEEDS AT THIS TIME. CALL LIGHT IN REACH, NAD NOTED, WILL CONTINUE TO MONTIOR.
--- NOTE | 2017-06-04 09:25 | NUR ---
PT TRANSFERED TO [facility] VIA BED, NAD NOTED.
--- NOTE | 2017-06-04 10:30 | NUR ---
PT TRANSFERED BACK TO ROOM 2111 VIA BED, VITAL SIGNS STABLE, NO BLEEDING OR HEMATOMA NOTED TO LT GROIN, PULSE PALPABLE. PT PLACED ON FREQUENT VITAL SIGNS, INSTRUCTED PT TO LAY FLAT FOR 4HRS. PT VERBALIZED UNDERSTANDING, STILL A LITTLE DROWSY. DENIES ANY NEEDS AT THIS TIME. CALL LIGHT IN REACH, NAD NOTED, WILL CONTINUE TO MONITOR.
[2017-06-04] MEDS ORDERED: PLAVIX75 MG PO (10:59)
[2017-06-04] MEDS ORDERED: HUMULIN R100 U/ML SC (11:08)
--- NOTE | 2017-06-04 11:20 | NUR ---
PT WILL NOT KEEP LEFT LEG, REMINDED HIM THAT HE NEEDS TO LAY FLAT FOR 4HR. PT VERBALIZED UNDERSTANDING. LT GROIN DRESSING CLEAN AND INTACT, NO HEMATOMA NOTED. PT DENIES ANY NEEDS AT THIS TIME. CALL LIGHT IN REACH, NAD NOTED, WILL CONTINUE TO MONITOR.
--- NOTE | 2017-06-04 11:29 | NUR ---
BLOOD SUGAR OF 136, NO COVERAGE NEEDED PER S/S. PT IN BED, LAYING FLAT, DENIES ANY NEEDS AT THIS TIME. NAD NOTED, CALL LIGHT IN REACH, WILL CONTINUE TO MONITOR.
[2017-06-04 12:02] VITALS: BP 106/72
--- NOTE | 2017-06-04 12:17 | NUR ---
WENT TO CHECK ON PT. PT SITTING UP EATING LUNCH. INFORMED PT THAT HE NEEDS TO LAY FLAT UNTIL 1430. PT STATED " I CAN'T EAT LAYING DOWN". TOLD PT THE IMPORTANCE OF LAYING FLAT. HELPED PT TO FLAT POSITONED. PT VERBALIZED UNDERSTANDING REGARDING INFORMATION GIVEN. NO BLEEDING OR HEMATAMO NOTED TO SITE, PULSE PALPABLE. NAD NOTED, WILL CONTINUE TO MONITOR.
--- NOTE | 2017-06-04 14:42 | NUR ---
PROVIDED VERBAL AND WRITTEN DISCHARGE TEACHING TO PT. FAMILY ALSO AT BEDSIDE. PT VERBALIZED UNDERSTANDING REGARDING TEACHING. D/C LT AC IV, TIP INTACT. REMOVED TELEMETRY AND TOOK MONITOR TO ADRY ASSOCIATE SALES MANAGER. WILL CALL FOR WHEELCHAIR.
--- NOTE | 2017-06-04 15:00 | NUR ---
PT LEFT UNIT VIA WHEELCHAIR, ACCOMPANIED BY FAMILY, NAD NOTED.
--- NOTE | 2017-06-04 16:42 | DS ---
PATIENT:LYNDA KAHN :59 MEDICAL RECORD: [id number] DISCHARGE SUMMARY ADMISSION DATE: 06/02/17 DISCHARGE DATE: 06/04/17 DATE OF SERVICE: 06/04/17. 1. Angina. 2. Coronary artery disease. 3. Percutaneous transluminal coronary angioplasty and stent LAD and RCA this admission. HOSPITAL COURSE: This is a gentleman who presents with anginal symptomatology, found to have two-vessel coronary artery disease of the LAD and RCA, underwent successful PTCA stent of above territories. He had an uneventful postop course. He was discharged home with the addition of aspirin and Plavix to his medical regimen. We will follow up with [facility] in 1 month. TRANSINT:[id number] Voice Confirmation ID: [id number] DOCUMENT ID: [id number] SRIDHAR PARKER MD at 1642 CC: [id number] DICTATION DATE: 06/04/17 1015 APPARATUS REPAIR MECHANIC: 06/04/17 1309 DIS IN 06/04/17 [facility] [address] [place] [address]
--- NOTE | 2017-06-04 16:42 | OP ---
PATIENT NAME: LYNDA KAHN MEDICAL RECORD: [id number] :59 LOCATION:D.M2 D.2 ADMISSION DATE:06/02/17 SURGEON: SRIDHAR PARKER MD DATE OF OPERATION: 06/04/2017 PROCEDURES: 1. PTCA stent RCA. 2. Selective coronary angiography. INDICATION: Angina and coronary artery disease. PROCEDURE IN DETAIL: After informed consent was obtained and after detailed explanation of risks, benefits as well as alternative therapies, the patient elected to proceed with angiogram and angioplasty. The left femoral area was prepped and draped in normal sterile fashion. Left femoral artery was cannulated via modified Seldinger technique with placement of a 6-Setswana sheath. All catheters exchanged through this sheath. FINDINGS: The right coronary artery has 75% stenosis in the mid vessel. This was addressed with a 4.0 x 18 mm [place] stent taken to 17 atmospheres. Result was 0% residual stenosis. OVERALL IMPRESSION: Successful percutaneous transluminal coronary angioplasty stent of the right coronary artery going from greater than 70% initial stenosis to 0% residual. TRANSINT:[id number] Voice Confirmation ID: [id number] DOCUMENT ID: [id number] SRIDHAR PARKER MD at 1642 CC: [id number] DICTATION DATE: 06/04/17 1016 COMMUNICATIONS AGENT: 06/04/17 1129 DIS IN 06/04/17 [facility] [address] [place] [address]
--- NOTE | 2017-06-04 16:42 | OP ---
PATIENT NAME: LYNDA KAHN MEDICAL RECORD: [id number] :59 LOCATION:D.M2 D.2112 ADMISSION DATE:06/02/17 SURGEON: SRIDHAR PARKER MD DATE OF OPERATION: 06/03/2017 PROCEDURES: 1. PTCA stent to LAD. 2. Intravascular ultrasound of the LAD. 3. Left heart catheterization. 4. Selective coronary angiography. 5. Left ventriculogram. INDICATION: Angina and coronary artery disease. PROCEDURE IN DETAIL: After informed consent was obtained and after detailed explanation of risks, benefits as well as alternative therapies, the patient elected to proceed with angiogram and angioplasty. The right femoral area was prepped and draped in normal sterile fashion. The right femoral artery was cannulated via modified Seldinger technique with placement of a 6-Icelandic sheath. All catheters exchanged through this sheath. FINDINGS: Left ventriculogram was performed in the standard 30-degree BROWN view reveals preserved cardiac wall motion, ejection fraction is 60%. SELECTIVE CORONARY ANGIOGRAPHY: 1. Left main showed no significant angiographic disease. 2. Left anterior descending has a previously placed stent. There is 74% in-stent restenosis in the mid LAD confirmed by intravascular ultrasound. 3. The left circumflex shows moderate irregularities, but no flow-limiting stenosis. 4. The right coronary artery has previously placed stents, has greater than 70% in-stent restenosis in the mid vessel. PTCA STENT OF THE LAD: The stent used is 4.0 x 12 mm David taken to 24 atmospheres. Result was 0% residual stenosis. OVERALL IMPRESSION: Successful percutaneous transluminal coronary angioplasty stent of the left anterior descending going from 74% initial stenosis to 0% residual stenosis. PLAN: For PTCA stent of the RCA in the near future. TRANSINT:[id number] Voice Confirmation ID: [id number] DOCUMENT ID: [id number] SRIDHAR PARKER MD at 1642 CC: [id number] DICTATION DATE: 06/03/17929 CASTING MACHINE OPERATOR AUTOMATIC: 06/03/17 1121 DIS IN 06/04/17 [facility] [address] [place] [address]
== END 2017-06-04 15:01 | disposition home or self-care (01) ==
LOC: OBSVTIME → D.ER 20:07 → D.OPS 20:07 → D.ER 21:34 → D.M2 21:34 → OBSVTIME 21:34 → D.M2 21:34 → EDSTATUS 06-03 10:00 → D.M2 06-04 15:01 → D.OPS 06-04 15:01
PROVIDERS: Family Medicine; Internal Medicine Interventional Cardiology
DX: I25.110 Atherosclerotic heart disease of native coronary artery with unstable angina pectoris (principal); Z72.0 Tobacco use; T82.855A Stenosis of coronary artery stent, initial encounter; Y83.8 Other surgical procedures as the cause of abnormal reaction of the patient, or of later complication, without mention of misadventure at the time of the procedure; E11.9 Type 2 diabetes mellitus without complications; I10 Essential (primary) hypertension; E78.5 Hyperlipidemia, unspecified
CPT/HCPCS: 93458; 92978; C9600 ×2

== ENCOUNTER 2017-08-04 22:19 | Observation (INO) | payer MEDICARE, MEDICAID ==
[~2017-08-04] VITALS: Ht 177.8 cm; Wt 115.5 kg
--- NOTE | ~2017-08-04 | CN ---
PATIENT NAME:LYNDA KAHN MEDICAL RECORD: [id number] : 59 LOCATION:[facility] D.2118 ADMIT DATE: 08/04/17 ACCOUNT: [id number] CONSULTING PHYSICIAN: ESTEBAN CHEEK MD REFERRING PHYSICIAN: SALAS VELASCO MD DATE OF CONSULTATION: 08/05/2017 HISTORY OF PRESENT ILLNESS: A 61-year-old gentleman who was admitted with history of coronary artery disease, status post intervention last of May, admitted with atypical chest pain, different from his precatheterization and intervention type pain. This is more in the right arm, right chest. Serial enzymes negative. ECG without acute change. We are asked to see him concerning his cardiovascular status. PAST MEDICAL HISTORY: Includes: 1. Coronary artery disease as described above. 2. Diabetes mellitus. 3. Hypertension. 4. Hyperlipidemia. 5. Peripheral neuropathy. MEDICATIONS: Include: 1. Metformin 1 gram b.i.d. 2. Lasix 20 every day. 3. Zoloft 50 every day. 4. Neurontin 600 b.i.d. 5. Aspirin 81 every day. 6. Lisinopril 40 every day. 7. Plavix 75 every day. SOCIAL HISTORY: He is a nonsmoker and nondrinker. Easily takes care of all his ADLs. ALLERGIES: IBUPROFEN. REVIEW OF SYSTEMS: The patient reports easy bruising but reports no swollen glands. The patient reports no fever, no night sweats, no significant weight gain, no significant weight loss. No significant exercise tolerance. The patient reports no dry eyes, no irritation, no vision change. Patient reports no difficulty hearing and no ear pain. Patient reports no frequent nose bleeds or nose and sinus problems. Patient reports on arm pain on exertion. No shortness of breath while lying down. No history of heart murmur. Patient reports no cough, no wheezing or coughing up blood. Patient reports no abdominal pain, no vomiting. Normal appetite. No diarrhea and not vomiting blood. No nausea and no constipation. Patient reports no incontinence. No difficulty urinating. No hematuria. No increased frequency. Patient reports no muscle aches. No weakness, no arthralgias, no back pain. No swelling of the extremities. Patient reports no abnormal mole, no jaundice, no rashes. Reports no loss of consciousness. No weakness and no numbness. No seizures, dizziness, or headaches. The patient reports no depression, no sleep disturbance, feeling safe in a relationship and no alcohol abuse. Patient reports on fatigue. Reports no runny nose or sinus pressure. No itching, no hives, and no frequent sneezing. PHYSICAL EXAMINATION: CONSULT REPORT [id number] KAHNLYNDA Wade GENERAL: Pleasant gentleman in no acute distress, appears stated age. VITAL SIGNS: Blood pressure 90/62, pulse 74 and regular. HEENT: Normocephalic, atraumatic. NECK: No JVD or bruit. HEART: Regular. LUNGS: Good air excursion. ABDOMEN: Soft, nontender. EXTREMITIES: Pulses well preserved, 2+ with no edema. NEUROLOGIC: Grossly intact. DIAGNOSTIC DATA: ECG shows incomplete right bundle branch block. Serial enzymes negative. IMPRESSION: Atypical pain. He reports by his report has been compliant with medications. I doubt subacute thrombosis on drug-eluting stent, also somewhat early for restenosis. Doubt cardiac etiology of symptomatology. Okay to discharge from my standpoint. TRANSINT:[id number] Voice Confirmation ID: [id number] DOCUMENT ID: [id number] ESTEBAN CHEEK MD at 1318 CC: [id number] DICTATION DATE: 08/05/17 0943 EDGE BURNISHER UPPERS: 08/05/17 1125 DIS IN 08/05/17 [address] [place] [address]
[~2017-08-04 22:19] MED LIST changes: +HUMALOG MIX 75/10 ML; +HUMULIN R100 U/ML SC; +PLAVIX75 MG PO; +ZOLOFT50 MG PO
[2017-08-04 23:09] LABS: BASOPHILS 0.2 % (0-2); EOSINOPHILS 2.5 % (0-7); HEMATOCRIT 42.9 % (42.0-54.0); IMMATURE GRANULOCYTES 0.4 % (0-5); LYMPHOCYTES 22.2 % (15-50); MCH 27.1 pg (26.0-34.0); MCHC 32.6 g/dL (31.0-37.0); MCV 83.1 fL (80.0-100.0); MEAN PLATELET VOLUME 9.6 fL (7.4-10.4); NEUTROPHILS 67.7 % (40-80); PLATELET COUNT 278 10x3/uL (130-400); RBC 5.16 10x6/uL (4.20-6.10); RDW 14.7 % (11.5-14.5); WBC 8.1 10x3/uL (4.8-10.8)
[2017-08-04 23:29] LABS: ALBUMIN 3.9 g/dL (3.4-5.0); ALKALINE PHOSPHATASE 63 U/L (46-116); ALT (SGPT) 29 U/L (10-68); BILIRUBIN - TOTAL 0.13 mg/dL (0.2-1.3); CALC OSMOLALITY 280 mosm/kg (275-300); CALCIUM 9.5 mg/dL (8.5-10.1); CHLORIDE - SERUM 96 mmol/L (98-107); POTASSIUM - SERUM 4.2 mmol/L (3.5-5.1); PROTEIN - SERUM 7.5 g/dL (6.4-8.2); SODIUM 133 mmol/L (136-145); UREA NITROGEN 18 mg/dL (7-18); eGFR NON AFRICAN AMERICAN 81 mL/min (90-120)
[2017-08-04 23:30] LABS: GLUCOSE 337 mg/dL (74-106)
[2017-08-04 23:40] LABS: CHOL - HDL RATIO 5.8 ratio (2.3-4.9); CHOLESTEROL, TOTAL 184 mg/dL (0-200); CKMB 1.4 U/L (0.0-3.6); CREATINE KINASE 98 UL (21-232); HDL CHOLESTEROL 32 mg/dL (32-96); TRIGLYCERIDE 446 mg/dL (30-200)
[2017-08-04 23:41] LABS: TROPONIN-I < 0.017 ng/mL (0.000-0.060)
[2017-08-05 00:29] VITALS: BMI 36.5
[2017-08-05 01:45] VITALS: BP 100/38
[2017-08-05 06:00] LABS: CKMB 1.1 U/L (0.0-3.6); CREATINE KINASE 70 UL (21-232); TROPONIN-I < 0.017 ng/mL (0.000-0.060)
[2017-08-05 07:01] VITALS: BP 98/53
[2017-08-05 09:25] VITALS: BP 90/62
[2017-08-05 11:38] LABS: CKMB 0.9 U/L (0.0-3.6); CREATINE KINASE 64 UL (21-232)
[2017-08-05 11:39] LABS: TROPONIN-I < 0.017 ng/mL (0.000-0.060)
[2017-08-05 12:43] VITALS: BP 130/72
[2017-08-05 17:32] VITALS: BP 179/90
[2017-08-05 20:00] VITALS: BP 128/78
[2017-08-05 20:46] VITALS: Ht 177.8 cm; Wt 115.5 kg
[2017-09-17] MEDS ORDERED: MYSOLINE 50 MG50 MG PO (20:22)
== END 2017-08-05 22:37 | disposition home or self-care (01) ==
LOC: D.ER 22:19 → D.M2 23:28 → OBSVTIME 23:28 → D.M2 08-05 22:37
PROVIDERS: Emergency Medicine
DX: R07.89 Other chest pain (principal); I25.10 Atherosclerotic heart disease of native coronary artery without angina pectoris; F17.203 Nicotine dependence unspecified, with withdrawal; J44.9 Chronic obstructive pulmonary disease, unspecified; E10.65 Type 1 diabetes mellitus with hyperglycemia; E10.42 Type 1 diabetes mellitus with diabetic polyneuropathy; I10 Essential (primary) hypertension; E78.5 Hyperlipidemia, unspecified; I45.10 Unspecified right bundle-branch block; E66.9 Obesity, unspecified

== ENCOUNTER 2017-09-16 19:17 | Observation (INO) | payer MEDICARE, MEDICAID | END 2017-09-20 18:29 | disposition home or self-care (01) | LOC: D.ER 19:17 → D.SDCHOLD 23:14 → D.M2 09-17 17:51 | DX: M50.223 Other cervical disc displacement at C6-C7 level (principal); M50.323 Other cervical disc degeneration at C6-C7 level; M47.816 Spondylosis without myelopathy or radiculopathy, lumbar region; Z86.73 Personal history of transient ischemic attack (TIA), and cerebral infarction without residual deficits; H40.9 Unspecified glaucoma; E11.42 Type 2 diabetes mellitus with diabetic polyneuropathy; J44.9 Chronic obstructive pulmonary disease, unspecified; E78.5 Hyperlipidemia, unspecified; I10 Essential (primary) hypertension ==

== ENCOUNTER 2017-10-18 22:15 | Emergency (ER) | payer MEDICARE, MEDICAID ==
[2017-09-17 19:02] VITALS: BMI 35.6
[~2017-10-18 22:15] MED LIST changes: +NOVOLIN 70/30 110 ML SC; -NOVOLOG MIX; +ZESTRIL20 MG PO; -ZESTRIL40 MG PO
[2017-12-23] MEDS ORDERED: NOVOLIN 70/30 110 ML SC (08:44)
[2017-12-23] MEDS ORDERED: PRAVACHOL40 MG PO (08:45)
== END 2017-10-19 02:59 | disposition home or self-care (01) ==
LOC: D.ER 22:15
DX: R25.1 Tremor, unspecified (principal); I10 Essential (primary) hypertension; E11.9 Type 2 diabetes mellitus without complications; Z79.4 Long term (current) use of insulin

== ENCOUNTER 2017-12-11 19:01 | Emergency (ER) | payer MEDICARE, MEDICAID ==
[2017-09-17 19:02] VITALS: BMI 35.6
[2017-12-11 19:47] LABS: APPEARANCE CLEAR (CLEAR); BILIRUBIN NEGATIVE (NEGATIVE); COLOR YELLOW (YELLOW); GLUCOSE NEGATIVE (NEGATIVE); KETONE NEGATIVE (NEGATIVE); NITRITE NEGATIVE (NEGATIVE); PROTEIN NEGATIVE (NEGATIVE); SPECIFIC GRAVITY 1.015 (1.005-1.020); UROBILINOGEN NORMAL (NORMAL)
[2017-12-11 20:04] LABS: BASOPHILS 0.3 % (0-2); EOSINOPHILS 2.9 % (0-7); HEMATOCRIT 39.4 % (42.0-54.0); IMMATURE GRANULOCYTES 0.4 % (0-5); LYMPHOCYTES 20.7 % (15-50); MCV 81.9 fL (80.0-100.0); MEAN PLATELET VOLUME 9.1 fL (7.4-10.4); MONOCYTES 5.8 % (2-11); NEUTROPHILS 69.9 % (40-80); PLATELET COUNT 224 10x3/uL (130-400); RBC 4.81 10x6/uL (4.20-6.10); RDW 13.8 % (11.5-14.5); WBC 10.2 10x3/uL (4.8-10.8)
[2017-12-11 20:19] LABS: ALBUMIN 3.5 g/dL (3.4-5.0); ALKALINE PHOSPHATASE 53 U/L (46-116); ALT (SGPT) 29 U/L (10-68); BILIRUBIN - TOTAL 0.23 mg/dL (0.2-1.3); CALC OSMOLALITY 271 mosm/kg (275-300); CARBON DIOXIDE 26.7 mmol/L (21.0-32.0); CHLORIDE - SERUM 100 mmol/L (98-107); CREATININE - SERUM 0.9 mg/dL (0.6-1.3); GLUCOSE 102 mg/dL (74-106); POTASSIUM - SERUM 3.6 mmol/L (3.5-5.1); PROTEIN - SERUM 7.2 g/dL (6.4-8.2); SODIUM 136 mmol/L (136-145); UREA NITROGEN 12 mg/dL (7-18); eGFR NON AFRICAN AMERICAN > 90 mL/min (90-120)
[2017-12-11 20:30] LABS: CKMB 0.8 U/L (0.0-3.6); CREATINE KINASE 86 UL (21-232); TROPONIN-I < 0.017 ng/mL (0.000-0.060)
[2017-12-23] MEDS ORDERED: NOVOLIN 70/30 110 ML SC (08:44)
[2017-12-23] MEDS ORDERED: PRAVACHOL40 MG PO (08:45)
== END 2017-12-11 22:17 | disposition home or self-care (01) ==
LOC: D.ER 19:01
PROVIDERS: Emergency Medicine
DX: R53.1 Weakness (principal); G43.909 Migraine, unspecified, not intractable, without status migrainosus; M54.12 Radiculopathy, cervical region; I10 Essential (primary) hypertension; E11.9 Type 2 diabetes mellitus without complications; Z79.4 Long term (current) use of insulin

== ENCOUNTER 2017-12-24 05:15 | Day surgery (SDC) | payer MEDICARE, MEDICAID ==
[2017-12-23 09:18] LABS: HEMATOCRIT 40.6 % (42.0-54.0); HEMOGLOBIN 13.2 g/dL (13.5-17.5); MCH 27.2 pg (26.0-34.0); MCHC 32.5 g/dL (31.0-37.0); MCV 83.5 fL (80.0-100.0); MEAN PLATELET VOLUME 9.2 fL (7.4-10.4); RBC 4.86 10x6/uL (4.20-6.10); RDW 14.1 % (11.5-14.5); WBC 7.4 10x3/uL (4.8-10.8)
[2017-12-23 09:37] LABS: CALC OSMOLALITY 281 mosm/kg (275-300); CARBON DIOXIDE 26.8 mmol/L (21.0-32.0); CHLORIDE - SERUM 100 mmol/L (98-107); CREATININE - SERUM 0.9 mg/dL (0.6-1.3); POTASSIUM - SERUM 4.2 mmol/L (3.5-5.1); SODIUM 137 mmol/L (136-145); UREA NITROGEN 19 mg/dL (7-18); eGFR NON AFRICAN AMERICAN > 90 mL/min (90-120)
[2017-12-23 09:38] LABS: GLUCOSE 213 mg/dL (74-106)
[~2017-12-24] VITALS: Ht 177.8 cm; Wt 115.0 kg
[2017-12-24] VITALS (11 sets, daily range): BP systolic 115–155; BP diastolic 65–95; Ht 177.8 cm; Wt 115.0 kg
--- NOTE | ~2017-12-24 | OP ---
PATIENT NAME: LYNDA KAHN MEDICAL RECORD: [id number] :59 [facility] ADMISSION DATE: SURGEON: KENDRICK CARRENO MD DATE OF OPERATION: 12/24/2017 PREOPERATIVE DIAGNOSES: Osteophyte formation and disk herniation at C6-C7 left with left C7 radiculopathy. POSTOPERATIVE DIAGNOSES: Osteophyte formation and disk herniation at C6-C7 left with left C7 radiculopathy. SURGEON: Kendrick Carreno MD PROCEDURES: Anterior cervical diskectomy and fusion at C6-C7 with removal of osteophytes, PEEK interbody cage with ViaCell bone stem cell allograft, separate anterior cervical plate and screws from [employer] spine, 18 mm length plate, 8 mm cage with 6 degrees of lordosis. DESCRIPTION OF TECHNIQUE: After induction of general endotracheal anesthesia, the patient was positioned supine on the operating table. Neck was prepped and draped in usual sterile fashion. Fluoroscopic x-ray and [place] dissector localized the C6-C7 interspace. A skin incision was carried out from the midline to the sternocleidomastoid muscle. The platysma was divided with Bovie cautery. Using blunt and sharp dissection with Metzenbaum scissors, I proceeded in the avascular plane medial to the carotid sheath. The C6-C7 interspace was identified with spinal needle and fluoroscopic x-ray. Longus colli muscles were elevated from bodies of C6 and C7. A self-retaining retractor was placed deep in the longus colli muscles. Olga distracting pins were placed in the bodies of C6 and C7. Disk space was distracted and the disk space was incised with #11 blade. A series of curettes and pituitary rongeurs were used to remove disk material from the disk space. The posterior longitudinal ligament was removed with Cloward rongeurs. The dura was decompressed well and osteophyte was drilled away posteriorly with Midas-Bimal drill and microscope. Following this, the dura was decompressed. A PEEK interbody cage was placed in the disk space under distraction. Prior to this was filled with ViaCell bone stem cell allograft. Zavation anterior cervical plate and screws were used to span the C6-C7 interspace. The screws were placed through the holes of the plate and locking cam was tightened down over each screw head. Good position of the hardware was confirmed with fluoroscopic x-ray. Meticulous hemostasis was maintained throughout the wound. The wound was irrigated with copious amounts of Ancef irrigant solution. The platysma and subdermal layer closed with interrupted 3-0 Vicryl suture. The skin was reapproximated with Steri-Strips and benzoin. A sterile dressing was applied to the wound. The patient was awakened in good condition and taken to recovery. All counts were reported as correct. Estimated blood loss was minimal. TRANSINT:[id number] Voice Confirmation ID: [id number] DOCUMENT ID: [id number] OPERATIVE REPORT [id number] LYNDA KAHN JOHN MD CC: [id number] DICTATION DATE: 12/31/17 1028 PROPERTY INSURANCE AGENT: 12/31/17 1202 [facility] [place] 12/25/17 [id number] [place] [address]
[2017-12-25 03:00] VITALS: BP 129/89
[2017-12-25] MEDS ORDERED: HYDROCODONE-APA1 TAB PO (10:00)
== END 2017-12-25 12:05 | disposition home or self-care (01) ==
LOC: D.OPS 05:15 → D.ICU 05:15 → D.PAN 07:30 → D.OPS 07:30 → D.ICU 13:19 → D.OPS 12-25 12:05
PROVIDERS: Anesthesiology
DX: M50.123 Cervical disc disorder at C6-C7 level with radiculopathy (principal)

== ENCOUNTER 2018-01-19 17:06 | Emergency (ER) | payer MEDICARE, MEDICAID ==
[~2018-01-19] VITALS: Ht 177.8 cm; Wt 115.5 kg
[~2018-01-19 17:06] MED LIST changes: +HYDROCODONE-APA1 TAB PO
[2018-01-19 17:07] VITALS: Ht 177.8 cm; Wt 115.5 kg
[2018-01-19 18:03] LABS: BASOPHILS 0.2 % (0-2); EOSINOPHILS 3.4 % (0-7); HEMATOCRIT 39.2 % (42.0-54.0); HEMOGLOBIN 12.6 g/dL (13.5-17.5); IMMATURE GRANULOCYTES 0.4 % (0-5); LYMPHOCYTES 18.6 % (15-50); MCH 26.6 pg (26.0-34.0); MCHC 32.1 g/dL (31.0-37.0); MCV 82.7 fL (80.0-100.0); MEAN PLATELET VOLUME 9.4 fL (7.4-10.4); MONOCYTES 7.2 % (2-11); NEUTROPHILS 70.2 % (40-80); PLATELET COUNT 255 10x3/uL (130-400); RBC 4.74 10x6/uL (4.20-6.10); RDW 13.6 % (11.5-14.5); WBC 8.2 10x3/uL (4.8-10.8)
[2018-01-19 18:16] LABS: ALBUMIN 3.6 g/dL (3.4-5.0); ALKALINE PHOSPHATASE 67 U/L (46-116); ALT (SGPT) 32 U/L (10-68); BILIRUBIN - TOTAL 0.33 mg/dL (0.2-1.3); CALC OSMOLALITY 277 mosm/kg (275-300); CALCIUM 9.6 mg/dL (8.5-10.1); CARBON DIOXIDE 30.4 mmol/L (21.0-32.0); CHLORIDE - SERUM 101 mmol/L (98-107); CKMB 2.1 U/L (0.0-3.6); CREATINE KINASE 121 UL (21-232); CREATININE - SERUM 0.9 mg/dL (0.6-1.3); PROTEIN - SERUM 6.9 g/dL (6.4-8.2); SODIUM 138 mmol/L (136-145); UREA NITROGEN 14 mg/dL (7-18); eGFR NON AFRICAN AMERICAN > 90 mL/min (90-120)
[2018-01-19 18:19] LABS: GLUCOSE 116 mg/dL (74-106); TROPONIN-I < 0.017 ng/mL (0.000-0.060)
[2018-01-19] MEDS ORDERED: MEDROL DOSE PACK4 MG PO (20:07)
[2018-01-19] MEDS ORDERED: BIAXIN 500 MG500 MG PO (20:07)
[2018-01-19 20:16] VITALS: BP 148/87
== END 2018-01-19 20:21 | disposition home or self-care (01) ==
LOC: D.ER 17:06
PROVIDERS: Emergency Medicine
DX: R07.89 Other chest pain (principal); J20.9 Acute bronchitis, unspecified; M25.562 Pain in left knee; E11.9 Type 2 diabetes mellitus without complications; I10 Essential (primary) hypertension; W19.XXXA Unspecified fall, initial encounter; Y93.89 Activity, other specified; Y92.019 Unspecified place in single-family (private) house as the place of occurrence of the external cause

== ENCOUNTER 2018-02-23 21:34 | Observation (INO) | payer MEDICARE, MEDICAID ==
[~2018-02-23] VITALS: Ht 177.8 cm; Wt 113.4 kg
--- NOTE | ~2018-02-23 | HEMODYNAMI ---
PATIENT:LYNDA KAHN MEDICAL RECORD: [id number] : 59 LOCATION:[facility] D.2128 ADMISSION DATE: 02/23/18 Generatedon:02/24/201812:43 Patient name: LYNDA KAHN Patient #: [id number] SSN: DO B: 1955 Date of study: 02/24/2018 Page: Of Hemodynamic Procedure Report Patient Data Patient Demographics Procedure consent was obtained First Name: LYNDA Gender: Male Last Name: FEMI : 1955 [facility] Initial: L Age: 62 year(s) Patient #: [id number] Race: Unknown Additional ID: [id number] Contact details [address]: [address] [place] [address] State: [place] City: [place] Zip code: [address] Past Medical History Allergies Allergen Reaction Date Comments Reported Other allergy 12/20/2016 Ibuprofen Other allergy 12/21/2016 ibuprofen Other allergy 06/03/2017 ibuprofen, diclofenac Other allergy 06/04/2017 ibuprofen. diclofenac Other allergy 02/24/2018 ibuprofen, sweet potato Admission Admission Data Admission Date: 02/23/2018 Admission Time: 23:16 Room #: D.2128 Procedure Procedure Types Cath Procedure Diagnostic Procedure [facility] w/Coronaries Procedure Description Procedure Date Procedure Date: 02/24/2018 Procedure Start Time: 12:33 Procedure End Time: 12:41 Procedure Staff Name Function Johnathon Vazquez MD Performing Physician Babar Morris RN Nurse Pradeep Reyes RN Facility Service Associate Lissa Villagran RN Monitor Aaron Machuca RT Scrub Procedure Data Cath Procedure Fluoroscopy Diagnostic fluoroscopy Total fluoroscopy Time: 0.8 time: 0.8 min min Diagnostic fluoroscopy Total fluoroscopy dose: 725 dose: 725 mGy mGy Contrast Material Contrast Material Type Amount (ml) Isovue 300 61 Entry Location Entry Primary Successful Side Size Upsize Upsize Entry Closure Succes sful Closure Location (Fr) 1 (Fr) 2 (Fr) Remarks Device Remarks Femoral Right 5 Fr Exoseal artery Estimated blood loss: 10 ml Diagnostic catheters Device Type Used For End Catheter Placement MULTIPACK Pigtail 5 Fr Procedure catheter MULTIPACK JL 4.0 5Fr Procedure catheter MULTIPACK 3DRC 5Fr Procedure catheter Procedure Complications No complications Procedure Medications Medication Administration Route Dosage 0.9% NaCl I.V. 100 ml/hr Oxygen etCO2 Nasal cannula 2 l/min Heparin Flush Bag added to field 2 bags (1000units/500ml NS) Lidocaine 2% added to field 20 Versed I.V. 1 mg Fentanyl I.V. 50 mcg Versed I.V. 1 mg Fentanyl I.V. 50 mcg Hemodynamics Rest Heart Rate: 65 (bpm) Snapshots Pre Cath Intra NCS Post Cath Vital Signs Time Heart Resp SPO2 etCO2 NIBP (mmHg) Rhythm Pain Sedation Rate (ipm) (%) (mmHg) Status Level (bpm) 12:21:46 63 22 95 0 145/87(118) NSR 0 (11) 10(A) , No pain 12:26:39 65 22 95 0 141/89(106) NSR 0 (11) 10(A) , No pain 12:31:30 68 14 98 35.9 131/75(101) NSR 0 (11) 10(A) , No pain 12:36:19 64 18 98 34.4 134/82(100) NSR 0 (11) 10(A) , No pain 12:41:08 70 19 97 35.1 142/90(111) NSR 0 (11) 10(A) , No pain Medications Time Medication Route Dose Verified Delivered Reason Notes Effectiveness by by 12:21:40 0.9% NaCl I.V. 100ml/hr Babar Babar Per Lorigan Lorigan physician RN RN 12:21:54 Oxygen etCO2 2 l/min Babar Babar Per Nasal Lorigan Lorigan physician cannula RN RN 12:22:05 Heparin Flush added 2 bags Babar Babar used for Bag to Lorigan Lorigan procedure (1000units/500ml field RN RN NS) 12:22:16 Lidocaine 2% added 20ml Babar Babar for local to vial Lorigan Lorigan anesthetic field RN RN 12:35:01 Versed I.V. 1 mg Babar Babar for Lorigan Lorigan sedation RN RN 12:35:10 Fentanyl I.V. 50 mcg Babar Babar for Lorigan Lorigan sedation RN RN 12:38:17 Versed I.V. 1 mg Babar Babar for Loraguilar Morris sedation RN RN 12:38:21 Fentanyl I.V. 50 mcg Babar Babar for Loraguilar Morris sedation RN feeder worker power unit operator Log Time Note 11:59:13 Time tracking: Regular hours (M-F 7:00 - 5:00) 11:59:16 Plan of Care:Hemodynamics will remain stable., Cardiac rhythm will remain stable., Comfort level will be maintained., Respiratory function will remain adequate., Patient/ family verbilizes understanding of procedure., Procedure tolerated without complication., Recovers from procedure without complications.. 12:07:40 Pradeep Reyes RN sent for patient. Start room use. 12:16:20 Patient received from Med II to CCL 1 Alert and oriented. Tansferred to table in Supine position. 12:16:21 Warm blankets applied, and precious hugger turned on for patient comfort. 12:16:21 Correct patient and procedure confirmed by team. 12:16:22 Signed procedure consent form obtained from patient. 12:16:36 ECG and BP/O2 sat monitors applied to patient. 12:16:37 Pre-procedure instructions explained to patient. 12:16:38 Pre-op teaching completed and patient verbalized understanding. 12:16:39 Family in waiting room. 12:16:41 Patient NPO since Midnight. 12:17:14 Patient allergic to Other allergyibuprofen, sweet potato 12:20:41 Vital chart was started 12:20:42 Full Disclosure recording started 12:20:45 Rhythm: sinus rhythm 12:20:57 H&P Date Dictated: 02/23/2018 Within 30 days and on chart.. 12:21:01 Is the patient allergic to Iodine/contrast media? No. 12:21:40 0.9% NaCl 100ml/hr I.V. was administered by Babar Morris RN; Per physician; 12:21:41 Is patient on blood thinner?No 12:21:45 Patient diabetic? Yes. 12:21:46 If diabetic: On Metformin? Yes 12:21:51 If on Metformin: Last Dose? 02/20/2018 12:21:54 Oxygen 2 l/min etCO2 Nasal cannula was administered by Babar Morris RN; Per physician; 12:22:03 Previous problem with sedation/anesthesia? No ? 12:22:05 Heparin Flush Bag (1000units/500ml NS) 2 bags added to field was administered by Babar Morris RN; used for procedure; 12:22:05 Snore? Yes 12:22:08 Sleep apnea? No 12:22:09 Deviated septum? No 12:22:10 Opens mouth fully? Yes 12:22:10 Sticks out tongue? Yes 12:22:12 Airway obstruction? No ? 12:22:14 Dentures? No ? 12:22:16 Lidocaine 2% 20ml vial added to field was administered by Babar Morris RN; for local anesthetic; 12:22:19 Pre procedure: right dorsailis pedis pulse 2+ Normal; easily identifiable; not easily obliterated 12:22:21 Patient pain scale 0/10 ?. 12:22:27 IV patent on arrival in left forearm with 0.9% NaCl at [facility]. 12:22:29 Lab results completed and on chart. 12:22:39 Right groin area was prepped with chlora-prep and draped in sterile fashion 12:22:42 Alarms reviewed by R. N. 12:22:42 Sharps counted by scrub and verified by R.N. 12:22:45 Use device set Femoral Dx 12:22:46 ACIST Syringe (58156) opened to sterile field. 12:22:46 Bag Decanter (2002S) opened to sterile field. 12:22:47 Medline Cath Pack ([id number]) opened to sterile field. 12:22:47 DIAGNOSTIC WIRE .035 260cm J wire (842295) opened to sterile field. 12:22:48 ACIST Manifold (18838) opened to sterile field. 12:22:49 ACIST Hand Control (06184) opened to sterile field. 12:22:49 DIAGNOSTIC Multipack 5Fr catheter set (XA3952) opened to sterile field. 12:22:50 Tegaderm 4 x 4 (1626W) opened to sterile field. 12:22:51 SHEATH Prelude 5Fr 0.035 (KPS-9A-51-035) opened to sterile field. 12:24:31 Baseline sample Acquired. 12:30:25 Physician paged 12:30:26 Physician arrived 12::27 --------ALL STOP TIME OUT------ 12:30:28 Final Timeout: patient, procedure, and site verified with staff and physician. All members of the team are in agreement. 12:30:31 Right groin site verified by team. 12:30:34 Physical assessment completed. ASA score P 2 - A patient with mild systemic disease as per Johnathon Vazquez MD. 12:30:39 Sedation plan: IV Moderate Sedation Medication:Versed, Fentanyl 12:32:48 Procedure started. 12:33:26 Local anesthetic to right femoral artery with Lidocaine 2% by Johnathon Vazquez MD.INITIAL ACCESS ONLY 12:33:45 A 5 Fr sheath was inserted into the Right Femoral artery 12:34:01 PERCUTANEOUS ENTRY 19GA needle opened to sterile field. 12:34:21 A MULTIPACK Pigtail 5 Fr catheter was advanced over the wire and used for Procedure. 12:34:53 LV angiography performed. 12:34:59 LV gram done using BROWN 12:35:01 Versed 1 mg I.V. was administered by Babar Morris RN; for sedation; 12:35:10 Fentanyl 50 mcg I.V. was administered by Babar Morris RN; for sedation; 12:35:31 EF : 50 % 12:35:33 Catheter removed. 12:35:47 A MULTIPACK JL 4.0 5Fr catheter was advanced over the wire and used for Procedure. 12:35:50 LCA angiography performed. 12:37:23 Catheter removed. 12:37:38 A MULTIPACK 3DRC 5Fr catheter was advanced over the wire and used for Procedure. 12:38:02 RCA angiography performed. 12:38:17 Versed 1 mg I.V. was administered by Babar Morris RN; for sedation; 12:38:21 Fentanyl 50 mcg I.V. was administered by Babar Morris RN; for sedation; 12:38:26 Catheter removed. 12:38:28 EXOSEAL 5Fr (EX500) opened to sterile field. 12:39:03 Sheath removed intact; hemostasis achieved with Exoseal to the Right Femoral artery. 12:40:01 Procedure ended.(Physican Out) 12:40:11 Fluoroscopy time 00.80 minutes. 12:40:17 Fluoroscopy dose: 725 mGy 12:40:17 Flurop Dose total: 725 12:40:32 Contrast amount:Isovue 300 61ml. 12:40:34 Sharps counted by scrub and verified by R.N. 12:40:36 Insertion/operative site no bleeding no hematoma. 12:40:40 Post-op/insertion site Right Femoral artery dressed using a 4 x 4 and Tegaderm. 12:40:49 Post-procedure physical assessment completed. ASA score P 2 - A patient with mild systemic disease as per Johnathon Vazquez MD. 12:40:52 Post procedure rhythm: unchanged. 12:40:55 Estimated blood loss: 10 ml 12:40:58 Post procedure instruction explained to patient.Patient verbalizes understanding. 12:41:05 Procedure and supply charges have been captured, reviewed, submitted and are correct. 12:41:30 Procedure Complication : No complications 12:41:33 Vital chart was stopped 12:41:34 See physician's report for complete and final results. 12:41:39 Patient transfered to [facility] with Bed. 12:41:41 Procedure ended. 12:41:41 Full Disclosure recording stopped 12:41:44 End room use (Document Last) Device Usage Item Name Manufacture Quantity Catalog Number Hospital Part Current M inimal Lot# / Charge Number Stock Stock Serial# Code ACIST Syringe Acist 1 [id number] [id number] 664082 028024 2 0 (00828) [employer] Bag Decanter Microtek 1 2001S 633833 91194 259003 5 () Medical Inc. Medline Cath Cardinal 1 [id number] 058033 01636 248041 5 Pack Health ([id number]) DIAGNOSTIC WIRE St Monster 1 349205 879843 889666 562721 3 0 .035 260cm J wire (348655) ACIST Manifold Acist 1 90599 238444 616402 591379 5 (75689) [employer] Inc ACIST Hand Acist 1 58383 584463 701361 528830 5 Control (26511) [employer] DIAGNOSTIC Cardinal 1 [id number] 614887 01527 412391 3 0 Multipack 5Fr Health catheter set ([id number]) Tegaderm 4 x 4 3M 1 1626W 560021 161057 988733 5 (1626W) SHEATH Prelude Merit 1 [id number] 998633 699804 586871 5 5Fr 0.035 Medical ([id number]-2B-34-035) PERCUTANEOUS Cook Medical 1 [id number] 288423 836834 5 ENTRY 19GA needle MULTIPACK Cardinal 1 360270 5 Pigtail 5 Fr Health catheter MULTIPACK JL Cardinal 1 729346 5 4.0 5Fr Health catheter MULTIPACK 3DRC Cardinal 1 374690 5 5Fr catheter Health EXOSEAL 5Fr Cardinal 1 EX500 170954 079827 431697 1 0 (EX500) Health Signature Audit [place] Stage Time Signature Unsigned Intra-Procedure 02/24/2018 Aaron Machuca 12:43:17 PM RT(R) Signatures Monitor : Lissa Signature : Tyshawn RN Date : Time : [id number] [place] [address]
--- NOTE | ~2018-02-23 | OP ---
PATIENT NAME: LYNDA KAHN MEDICAL RECORD: [id number] :59 LOCATION:D. D.2128 ADMISSION DATE:02/23/18 SURGEON: SRIDHAR PARKER MD DATE OF OPERATION: 02/24/2018 PROCEDURES: 1. Left heart catheterization. 2. Selective coronary angiography. 3. Left ventriculogram. INDICATION: Chest pain compatible with angina. PROCEDURE IN DETAIL: After informed consent was obtained and after detailed description of risks and benefits as well as alternative therapies, the patient elected to proceed with angiogram and heart catheterization. The right femoral area was prepped and draped in normal sterile fashion. Right femoral artery was cannulated via modified Seldinger technique with placement of 5-[place] sheath. All catheters were exchanged through this sheath. FINDINGS: Left ventriculogram was performed in standard 30-degree BROWN view, reveals preserved cardiac wall motion. Ejection fraction 50%. SELECTIVE CORONARY ANGIOGRAPHY: 1. Left main has no significant angiographic disease. 2. Left anterior descending has previously placed stents. These are widely patent with no significant restenosis. No disease else whitaker of the LAD or its branches. 3. Left circumflex has mild irregularities but no flow-limiting stenosis. 4. Right coronary has previously placed stents. These are widely patent with no significant restenosis. No disease else whitaker of the RCA or its branches. OVERALL IMPRESSION: Wide patency of all previously placed stents. No new disease else whitaker. Continue medical management of his coronary disease and cardiac risk factors. TRANSINT:[id number] Voice Confirmation ID: [id number] DOCUMENT ID: [id number] SRIDHAR PARKER MD at 1325 CC: [id number] DICTATION DATE: 02/24/18 1242 HEAD HOLDER: 02/24/18 1302 DIS IN 02/24/18 [id number] [place] [address]
[~2018-02-23 21:34] MED LIST changes: +BIAXIN 500 MG500 MG PO; +MEDROL DOSE PACK4 MG PO
[2018-02-23 22:12] LABS: BASOPHILS 0.2 % (0-2); EOSINOPHILS 1.9 % (0-7); HEMATOCRIT 38.8 % (42.0-54.0); HEMOGLOBIN 12.4 g/dL (13.5-17.5); IMMATURE GRANULOCYTES 0.5 % (0-5); MCH 26.7 pg (26.0-34.0); MCV 83.4 fL (80.0-100.0); MEAN PLATELET VOLUME 9.1 fL (7.4-10.4); MONOCYTES 7.1 % (2-11); NEUTROPHILS 71.3 % (40-80); PLATELET COUNT 227 10x3/uL (130-400); RBC 4.65 10x6/uL (4.20-6.10); WBC 8.3 10x3/uL (4.8-10.8)
[2018-02-23 22:20] LABS: APTT 27.2 SECONDS (22.8-39.4); INR 1.04 (0.85-1.17); PROTIME 13.2 SECONDS (11.6-15.0)
[2018-02-23 22:28] LABS: ALBUMIN 3.2 g/dL (3.4-5.0); ALKALINE PHOSPHATASE 59 U/L (46-116); ALT (SGPT) 36 U/L (10-68); BILIRUBIN - TOTAL 0.14 mg/dL (0.2-1.3); CALC OSMOLALITY 284 mosm/kg (275-300); CALCIUM 8.4 mg/dL (8.5-10.1); CARBON DIOXIDE 26.3 mmol/L (21.0-32.0); CHLORIDE - SERUM 101 mmol/L (98-107); POTASSIUM - SERUM 3.9 mmol/L (3.5-5.1); PROTEIN - SERUM 6.5 g/dL (6.4-8.2); SODIUM 136 mmol/L (136-145); UREA NITROGEN 12 mg/dL (7-18); eGFR NON AFRICAN AMERICAN 81 mL/min (90-120)
[2018-02-23 22:29] LABS: GLUCOSE 327 mg/dL (74-106)
[2018-02-23 22:37] VITALS: BP 132/84
[2018-02-23 22:39] LABS: CKMB 1.7 U/L (0.0-3.6); CREATINE KINASE 96 UL (21-232); PRO BNP 40 pg/mL (0-125)
[2018-02-23 22:42] LABS: TROPONIN-I < 0.017 ng/mL (0.000-0.060)
[2018-02-23 23:04] VITALS: BP 121/82
[2018-02-24 01:05] VITALS: BP 141/75
[2018-02-24 01:32] VITALS: Ht 177.8 cm; Wt 113.4 kg
[2018-02-24 05:15] VITALS: BP 129/70
[2018-02-24 05:57] LABS: CREATINE KINASE 83 UL (21-232); TROPONIN-I < 0.017 ng/mL (0.000-0.060)
[2018-02-24 08:42] VITALS: BP 124/79
[2018-02-24 10:36] LABS: BASOPHILS 0.1 % (0-2); EOSINOPHILS 0.1 % (0-7); HEMATOCRIT 40.7 % (42.0-54.0); HEMOGLOBIN 13.2 g/dL (13.5-17.5); IMMATURE GRANULOCYTES 0.8 % (0-5); LYMPHOCYTES 8.7 % (15-50); MCH 26.7 pg (26.0-34.0); MCHC 32.4 g/dL (31.0-37.0); MCV 82.2 fL (80.0-100.0); MEAN PLATELET VOLUME 9.4 fL (7.4-10.4); MONOCYTES 2.3 % (2-11); PLATELET COUNT 249 10x3/uL (130-400); RBC 4.95 10x6/uL (4.20-6.10); RDW 13.7 % (11.5-14.5); WBC 10.2 10x3/uL (4.8-10.8)
[2018-02-24 11:02] LABS: CALC OSMOLALITY 276 mosm/kg (275-300); CALCIUM 8.9 mg/dL (8.5-10.1); CARBON DIOXIDE 26.1 mmol/L (21.0-32.0); CHLORIDE - SERUM 100 mmol/L (98-107); CKMB 1.3 U/L (0.0-3.6); CREATINE KINASE 68 UL (21-232); CREATININE - SERUM 0.9 mg/dL (0.6-1.3); GLUCOSE 315 mg/dL (74-106); SODIUM 133 mmol/L (136-145); TROPONIN-I < 0.017 ng/mL (0.000-0.060); UREA NITROGEN 11 mg/dL (7-18); eGFR NON AFRICAN AMERICAN > 90 mL/min (90-120)
[2018-02-24 15:33] LABS: CREATINE KINASE 66 UL (21-232); TROPONIN-I < 0.017 ng/mL (0.000-0.060)
[2018-02-24 16:52] VITALS: BP 121/77
[2018-02-24 20:48] VITALS: BP 135/79
== END 2018-02-24 21:51 | disposition home or self-care (01) ==
LOC: D.ER 21:34 → OBSVTIME 23:16 → D.M2 23:16
PROVIDERS: Emergency Medicine; Internal Medicine Cardiovascular Disease
DX: I25.10 Atherosclerotic heart disease of native coronary artery without angina pectoris (principal); Z95.5 Presence of coronary angioplasty implant and graft; I10 Essential (primary) hypertension; E11.65 Type 2 diabetes mellitus with hyperglycemia; F41.8 Other specified anxiety disorders; E78.5 Hyperlipidemia, unspecified; F17.203 Nicotine dependence unspecified, with withdrawal; J44.9 Chronic obstructive pulmonary disease, unspecified; I45.10 Unspecified right bundle-branch block

== ENCOUNTER 2018-04-26 17:11 | Observation (INO) | payer MEDICARE, MEDICAID ==
[~2018-04-26] VITALS: Ht 177.8 cm; Wt 118.6 kg
--- NOTE | ~2018-04-26 | HP ---
PATIENT: LYNDA KAHN MEDICAL RECORD: [id number] ACCOUNT: [id number] LOCATION:[address] : 59 ADMISSION DATE: 04/26/18 PCP: No PCP HISTORY AND PHYSICAL EXAMINATION ADMITTING DIAGNOSES: 1. Unstable angina. 2. Coronary artery disease. 3. Previous percutaneous transluminal coronary angioplasty stent. 4. Hypertension. 5. Hyperlipidemia. HISTORY OF PRESENT ILLNESS: Mr. Kahn has a history of cardiac stenting approximately a year ago. Over the past 2 days, he has had chest pain, chest discomfort compatible with angina just like that of his previous angina, escalating fashion and continues to have episodes of chest pain. His troponin is normal. PHYSICAL EXAMINATION: GENERAL APPEARANCE: Well-nourished, well-developed, appears stated age. Level of distress, comfortable. PSYCHIATRIC: Mental status, alert, normal affect. Orientation, oriented to time, place and person. EYES: Lids and conjunctiva, noninjected. No discharge, no pallor. ENT: Lips, teeth, gums, normal dentition. Oropharynx, no cyanosis, no pallor. NECK: Carotid arteries, bilateral normal upstroke, no bruits, no thrills. JUGULAR VEINS: No jugular venous pressure or distention. CERVICAL LYMPH NODES: Nontender, nonenlarged. THYROID: Not enlarged. Nontender. No nodules. LUNGS: Respiratory effort, unlabored. CHEST: Normal curvature. No thoracic deformity. No chest wall tenderness. Percussion, resonant. Auscultation, clear. No wheezes, no rales, no rhonchi. CARDIOVASCULAR: Precordial exam, nondisplaced. No heaves or pericardial thrills. Rate and rhythm, regular. Heart sounds, normal S1, normal S2. No S3, no gallop, no rub. Systolic murmur, not heard. Diastolic murmur, not heard. EXTREMITIES: No cyanosis, no edema. Peripheral pulses, full and equal in all extremities, except as noted. No bruits appreciated. ABDOMEN: Soft, nondistended. Normal aorta. No bruit. Nontender. No masses. Liver, nontender, no hepatomegaly. Spleen, nontender, no splenomegaly. MUSCULOSKELETAL: No joint tenderness. No joint swelling. No erythema. NEUROLOGICAL: Normal gait, normal strength, normal tone. SKIN: Warm and dry. OVERALL IMPRESSION: Chest pain compatible with angina. Nonspecific ST-T abnormalities on his EKG. We will proceed with coronary angiography. Further care depends upon findings of the angiography. TRANSINT:[id number] Voice Confirmation ID: [id number] DOCUMENT ID: [id number] HISTORY AND PHYSICAL [id number] LYNDA KAHN, SRIDHAR NAPIER at 1823 CC: [id number] DICTATION DATE: 04/27/18 1009 ELECTRICAL ELECTRONICS ENGINEER: 04/27/18 1243 DIS IN 04/27/18 [facility] [address] [place] [address]
--- NOTE | ~2018-04-26 | DS ---
PATIENT:LYNDA KAHN :59 MEDICAL RECORD: [id number] DISCHARGE SUMMARY ADMISSION DATE: 04/26/18 DISCHARGE DATE: DATE OF DISCHARGE: 04/27/2018. DIAGNOSES: 1. Unstable angina. 2. Coronary artery disease. 3. Percutaneous transluminal coronary angioplasty stent right coronary artery this admission. 4. Hypertension. 5. Hyperlipidemia. HOSPITAL COURSE: Mr. Kahn presents with anginal symptomatology, found to have 2 significant stenoses of the RCA, underwent successful PTCA stent of both territories, was discharged home with the addition of aspirin and Plavix to his medical regimen. He will follow up with [facility] in 1 month. TRANSINT:[id number] Voice Confirmation ID: [id number] DOCUMENT ID: [id number] SRIDHAR PARKER MD at 1223 CC: [id number] DICTATION DATE: 04/27/18 1120 SENIOR INSIGHT MANAGER INTERNATIONAL: 04/27/18 1212 ADM IN [address] [place] [address]
--- NOTE | ~2018-04-26 | HEMODYNAMI ---
PATIENT:LYNDA KAHN MEDICAL RECORD: [id number] : 59 LOCATION[id number] ADMISSION DATE: 04/26/18 Generatedon:04/27/201811:22 Patient name: LYNDA KAHN Patient #: [id number] SSN: DO B: 1955 Date of study: 04/27/2018 Page: Of Hemodynamic Procedure Report Patient Data Patient Demographics Procedure consent was obtained First Name: LYNDA Gender: Male Last Name: FEMI : 1955 [facility] Initial: L Age: 62 year(s) Patient #: [id number] Race: Unknown Additional ID: [id number] Contact details Address: [address] [place] [address] State: [place] City: [place] Zip code: [address] Past Medical History Allergies Allergen Reaction Date Comments Reported Other allergy 12/20/2016 Ibuprofen Other allergy 12/21/2016 ibuprofen Other allergy 06/03/2017 ibuprofen, diclofenac Other allergy 06/04/2017 ibuprofen. diclofenac Other allergy 02/24/2018 ibuprofen, sweet potato Other allergy 04/27/2018 ibuprofen, sweet potato. Admission Admission Data Admission Date: 04/26/2018 Admission Time: 21:30 Admit Source: Other Room #: [facility] Lab Results Lab Result Date: 04/27/2018 Lab Result Time: 0:00 Biochemistry Name Units Result Min Max BUN mg/dl 11 --(-*--)-- 7 18 Creatinine mg/dl 0.9 --(-*--)-- 0.6 1.3 CBC Name Units Result Min Max Hemoglobin g/dl 12.5 *-(----)-- 13.5 17.5 Procedure Procedure Types Cath Procedure Diagnostic Procedure [facility] w/Coronaries FFR/IVUS Intra-Coronary IVUS Initial Sedation Charges Moderate Sedation up to 15 minutes PCI Procedure Coronary Stent Coronary Stent Initial Procedure Description Procedure Date Procedure Date: 04/27/2018 Procedure Start Time: 10:55 Procedure End Time: 11:17 Procedure Staff Name Function Johnathon Vazquez MD Performing Physician Alejandrina Neil RT Monitor Aaron Machuca RT Scrub Sherie Briones RN Nurse Procedure Data Cath Procedure Fluoroscopy Diagnostic fluoroscopy Total fluoroscopy Time: 3.8 time: 3.8 min min Diagnostic fluoroscopy Total fluoroscopy dose: 635 dose: 635 mGy mGy Contrast Material Contrast Material Type Amount (ml) Isovue 300 72 Entry Location Entry Primary Successful Side Size Upsize Upsize Entry Closure Succes sful Closure Location (Fr) 1 (Fr) 2 (Fr) Remarks Device Remarks Femoral Right 6 Fr Exoseal artery Short Estimated blood loss: 5 ml Diagnostic catheters Device Type Used For End Catheter Placement MULTIPACK Pigtail 5 Fr LV Angiography catheter MULTIPACK JL 4.0 5Fr Left Coronary catheter Angiography MULTIPACK 3DRC 5Fr Right Coronary catheter Angiography Procedure Complications No complications Procedure Medications Medication Administration Route Dosage Oxygen NC 2 l/min Lidocaine 2% added to field 20 Heparin Flush Bag added to field 2 bags (1000units/500ml NS) 0.9% NaCl I.V. 100 ml/hr Versed I.V. 2 mg Fentanyl I.V. 100 mcg Versed I.V. 2 mg Fentanyl I.V. 100 mcg Versed I.V. 2 mg Heparin Bolus I.V. 4000 units Integrilin (Bolus I.V. 10.7 ml 2mg/ml) Plavix P.O. 600 mg Hemodynamics Rest Heart Rate: 64 (bpm) Pressure Samples Time Site Value (mmHg) Purpose Heart Use Rate(bpm) 10:59 LV 69/16,26 Snapshot 70 Snapshots Pre Cath Intra NCS Post Cath Vital Signs Time Heart Resp SPO2 etCO2 NIBP (mmHg) Rhythm Pain Sedation Rate (ipm) (%) (mmHg) Status Level (bpm) 10:50:31 66 17 97 40.5 125/77(100) NSR 0 (11) 10(A) , No pain 10:55:21 67 13 96 43.5 122/73(105) NSR 0 (11) 10(A) , No pain 11:00:10 66 14 96 44.3 132/81(111) NSR 0 (11) 10(A) , No pain 11:05:01 73 11 97 42 136/79(114) NSR 0 (11) 9(A) , No pain 11:09:54 67 15 99 35.3 134/81(92) NSR 0 (11) 9(A) , No pain 11:14:47 70 14 99 39.8 125/74(91) NSR 0 (11) 10(A) , No pain Medications Time Medication Route Dose Verified Delivered Reason Notes Effectiveness by by 10:48:10 Oxygen NC 2 Johnathon Buffie used for l/min Taylor Briones RN procedure 10:48:18 Lidocaine 2% added 20ml Johnathon Buffie for local to vial Taylor Briones RN anesthetic field 10:48:26 Heparin Flush added 2 Johnathon Buffie used for Bag to bags Taylor Briones RN procedure (1000units/500ml field NS) 10:49:23 0.9% NaCl I.V. 100 Johnathon Buffie Per physician ml/hr Taylor Briones RN 10:50:18 Versed I.V. 2 mg Johnathon Rehman for sedation Taylor Briones RN 10:50:23 Fentanyl I.V. 100 Johnathon Rehman for sedation mcg Taylor Briones RN 10:57:39 Versed I.V. 2 mg Johnathon Rehman for sedation Taylor Briones RN 10:57:43 Fentanyl I.V. 100 Johnathon Rehman for sedation mcg Taylor Briones RN 11:06:29 Versed I.V. 2 mg Johnathon Rehman for sedation Taylor Briones RN 11:09:56 Heparin Bolus I.V. 4000 Johnathon Vivasie for verifi ed units Taylor Briones RN anticoagulation with dr vazquez 11:12:09 Integrilin I.V. 10.7 Johnathon Rehman for Wasted (Bolus 2mg/ml) ml Taylor Briones RN antiplatelet 9.3 ml therapy of vial 11:17:37 Plavix P.O. 600 Johnathon Rehman for mg Taylor Briones RN antiplatelet therapy Procedure Log Time Note 10:14:44 Informed consent obtained and on chart 10:14:47 Admit Source: Other 10:15:22 Diagnostic Cath status Elective 10:15:27 Time tracking: Call back (After hours or weekends) 10:15:31 Plan of Care:Hemodynamics will remain stable., Cardiac rhythm will remain stable., Comfort level will be maintained., Respiratory function will remain adequate., Patient/ family verbilizes understanding of procedure., Procedure tolerated without complication., Recovers from procedure without complications.. 10:17:44 H&P Date Dictated: 04/26/2018 Within 30 days and on chart.. 10:22:34 Sherie Briones RN sent for patient. Start room use. 10:34:10 Patient received from PCU to CCL 1 Alert and oriented. Tansferred to table in Supine position. 10:34:11 Warm blankets applied, and precious hugger turned on for patient comfort. 10:34:12 Correct patient and procedure confirmed by team. 10:34:13 ECG and BP/O2 sat monitors applied to patient. 10:34:13 Pre-procedure instructions explained to patient. 10:34:14 Pre-op teaching completed and patient verbalized understanding. 10:34:17 Patient NPO since Midnight. 10:34:31 Patient allergic to Other allergyibuprofen, sweet potato. 10:43:21 Family in waiting room. 10:43:36 Is the patient allergic to Iodine/contrast media? No. 10:43:38 Was the patient premedicated? No 10:43:48 Is patient on blood thinner?No 10:45:28 Patient diabetic? Yes. 10:45:35 If diabetic: On Metformin? Yes 10:45:39 If on Metformin: Last Dose? 04/26/2018 10:45:42 Previous problem with sedation/anesthesia? No ? 10:45:44 Snore? Yes 10:45:45 Sleep apnea? No 10:45:46 Deviated septum? No 10:45:47 Opens mouth fully? Yes 10:45:48 Sticks out tongue? Yes 10:46:04 Airway obstruction? No ? 10:46:08 Dentures? Yes out 10:46:13 Pre procedure: right dorsailis pedis pulse 2+ Normal; easily identifiable; not easily obliterated 10:46:16 Pre procedure: left dorsailis pedis pulse 2+ Normal; easily identifiable; not easily obliterated 10:46:18 Patient pain scale 0/10 ?. 10:46:27 IV patent on arrival in left antecubital with 0.9% NaCl at KVO. 10:46:33 Lab results completed and on chart. 10:46:39 Right groin area was prepped with chlora-prep and draped in sterile fashion 10:46:40 Alarms reviewed by R. N. 10:46:40 Sharps counted by scrub and verified by R.N. 10:47:32 Lab Result : Hemoglobin 12.5 g/dl 10:47:32 Lab Result : Creatinine 0.9 mg/dl 10:47:32 Lab Result : BUN 11 mg/dl 10:48:10 Oxygen 2 l/min NC was administered by Sherie Briones RN; used for procedure; 10:48:18 Lidocaine 2% 20ml vial added to field was administered by Sherie Briones RN; for local anesthetic; 10:48:19 Physician arrived 10:48:19 --------ALL STOP TIME OUT------ 10:48:20 Final Timeout: patient, procedure, and site verified with staff and physician. All members of the team are in agreement. 10:48:21 Right groin site verified by team. 10:48:24 Physical assessment completed. ASA score P 2 - A patient with mild systemic disease as per Johnathon Vazquez MD. 10:48:26 Heparin Flush Bag (1000units/500ml NS) 2 bags added to field was administered by Sherie Briones RN; used for procedure; 10:48:27 Sedation plan: IV Moderate Sedation Medication:Versed, Fentanyl 10:49:23 0.9% NaCl 100 ml/hr I.V. was administered by Sherie Briones RN; Per physician; 10:49:26 Vital chart was started 10:50:18 Versed 2 mg I.V. was administered by Sherie Briones RN; for sedation; 10:50:23 Fentanyl 100 mcg I.V. was administered by Sherie Briones RN; for sedation; 10:53:04 Use device set Femoral Dx 10:53:06 ACIST Syringe (50732) opened to sterile field. 10:53:06 Bag Decanter (2002) opened to sterile field. 10:53:07 Medline Cath Pack ([id number]) opened to sterile field. 10:53:07 DIAGNOSTIC WIRE .035 260cm J wire (708217) opened to sterile field. 10:53:08 ACIST Hand Control (89362) opened to sterile field. 10:53:09 ACIST Manifold (12355) opened to sterile field. 10:53:09 DIAGNOSTIC Multipack 5Fr catheter set (YB3042) opened to sterile field. 10:53:10 Tegaderm 4 x 4 (1626W) opened to sterile field. 10:53:31 SHEATH Prelude 6Fr 0.035 (FRY-5I-86-035) opened to sterile field. 10:53:36 Procedure started. 10:53:36 Full Disclosure recording started 10:55:01 Local anesthetic to right femoral artery with Lidocaine 2% by Johnathon Vazquez MD.INITIAL ACCESS ONLY 10:55:29 A 6 Fr Short sheath was inserted into the Right Femoral artery 10:56:22 A MULTIPACK Pigtail 5 Fr catheter was advanced over the wire and used for LV Angiography. 10:56:58 Baseline sample Acquired. 10:57:03 Rhythm: sinus rhythm 10:57:39 Versed 2 mg I.V. was administered by Sherie Briones RN; for sedation; 10:57:43 Fentanyl 100 mcg I.V. was administered by Sherie Briones RN; for sedation; 10:59:19 LV hemodynamics recorded. 10:59:20 LV gram done using BROWN 10:59:23 Injector settings: Ml/sec: 5, Volume: 15, 10:59:29 EF : 50 % 11:00:00 Catheter removed. 11:00:08 A MULTIPACK JL 4.0 5Fr catheter was advanced over the wire and used for Left Coronary Angiography. 11:00:14 LCA angiography performed. 11:00:24 Injector settings: Ml/sec: 3, Volume: 6, 11:01:29 Catheter removed. 11:01:37 A MULTIPACK 3DRC 5Fr catheter was advanced over the wire and used for Right Coronary Angiography. 11:01:42 RCA angiography performed. 11:01:45 Injector settings: Ml/sec: 3, Volume: 6, 11:02:42 Catheter removed. 11:02:43 Proceeding to intervention. 11:03:03 Honeydew [place] IVUS Catheter (91938G) opened to sterile field. 11:03:04 CHOICE PT Extra Support 182cm wire ([id number]) opened to sterile field. 11:03:04 INFLATOR Merit BasixCompak (RD1459) opened to sterile field. 11:03:50 GUIDE 6FR HS II catheter ([id number]) opened to sterile field. 11:04:08 6 Fr hs 2 guide catheter was inserted over the wire 11:04:13 choice pt wire advanced. 11:04:15 Wire advanced across lesion. 11:04:21 IVUS catheter advanced over wire. 11:06:29 Versed 2 mg I.V. was administered by Sherie Briones RN; for sedation; 11:07:44 IVUS pass to RCA lesion performed. 11:08:25 IVUS catheter removed over wire. 11:09:56 Heparin Bolus 4000 units I.V. was administered by Sherie Briones RN; for anticoagulation; verified with dr vazquez 11:11:17 Place stent Inflation Number: 1 A GENO RX 5.0 x 18 stent ([id number]) was prepped and advanced across the Mid RCA. The stent was deployed at 15 ROSA MARIA for 0:10 (min:sec). 11:11:22 Stent catheter was removed intact over wire. 11:12:09 Integrilin (Bolus 2mg/ml) 10.7 ml I.V. was administered by Sherie Briones RN; for antiplatelet therapy; Wasted 9.3 ml of vial 11:13:02 Place stent Inflation Number: 1 A GENO RX 5.0 x 12 stent ([id number]) was prepped and advanced across the Prox RCA. The stent was deployed at 15 ROSA MARIA for 0:10 (min:sec). 11:13:30 Stent catheter was removed intact over wire. 11:13:31 Wire removed. 11:13:31 Guide catheter removed. 11:13:38 EXOSEAL 6Fr (EX600) opened to sterile field. 11:13:51 Sheath removed intact; hemostasis achieved with Exoseal to the Right Femoral artery. 11:13:53 Procedure ended.(Physican Out) 11:15:09 Fluoroscopy time 03.80 minutes. 11:15:25 Fluoroscopy dose: 635 mGy 11:15:25 Flurop Dose total: 635 11:15:47 Contrast amount:Isovue 300 72ml. 11:15:49 Sharps counted by scrub and verified by R.N. 11:15:50 Insertion/operative site no bleeding no hematoma. 11:15:53 Post-op/insertion site Right Femoral artery dressed using a 4 x 4 and Tegaderm. 11:16:08 Femstop placed over the right femoral artery at 100 mmHg. Hemostasis achieved. 11:16:18 Post procedure rhythm: unchanged. 11:16:20 Estimated blood loss: 5 ml 11:16:28 FEMSTOP Gold (I95029) opened to sterile field. 11:16:32 Post procedure instruction explained to patient.Patient verbalizes understanding. 11:16:33 Patient needs reinforcement of post procedure teaching. 11:16:47 Procedure type changed to Cath procedure, Diagnostic procedure, LHC, LHC w/Coronaries, FFR/IVUS, Intra-Coronary IVUS Initial, Sedation Charges, Moderate Sedation up to 15 minutes, PCI procedure, Coronary Stent, Coronary Stent Initial 11:16:49 Procedure and supply charges have been captured, reviewed, submitted and are correct. 11:16:53 Procedure Complication : No complications 11:16:55 Vital chart was stopped 11:16:56 See physician's report for complete and final results. 11:16:58 Report given to [facility]. 11:17:01 Patient transfered to [facility] with Stretcher. 11:17:03 Procedure ended. 11:17:03 Full Disclosure recording stopped 11:17:12 ACC-PCI Only Patient was given prescriptions, or instructed by Johnathon Vazquez MD to start/continue the following medications upon discharge: Plavix 11:17:14 End room use (Document Last) 11:17:37 Plavix 600 mg P.O. was administered by Sherie Briones RN; for antiplatelet therapy; Intervention Summary Intervention Notes Time ActionType Lesion and Equipment Used Action# Pressure Duration Attributes 11:11:17 Place stent Mid RCA GENO RX 5.0 x 1 15 00:10 18 stent ([id number]) 11:13:02 Place stent Prox RCA GENO RX 5.0 x 1 15 00:10 12 stent ([id number]) Device Usage Item Name Manufacture Quantity Catalog Number Hospital Part Current Minimal Lot# / Charge Number Stock Stock Serial# Code ACIST Syringe Acist 1 83773 801554 190781 317232 20 (01262) Medical Systems Inc Bag Decanter Microtek 1 2001S 154111 79458 110107 5 () Medical Inc. Medline Cath Cardinal 1 [id number] 708875 [address] [facility] ([id number]) DIAGNOSTIC WIRE St Monster 1 740674 605161 021423 973463 30 .035 260cm J wire (518245) ACIST Hand Acist 1 86577 306568 057301 001121 5 Control (73229) Medical Systems Inc ACIST Manifold Acist 1 00935 893894 907956 499837 5 (86338) Medical Systems Inc DIAGNOSTIC Cardinal 1 PJ5260 825548 19287 699104 30 Multipack 5Fr Health catheter set (QL7038) Tegaderm 4 x 4 3M 1 1626W 420652 868188 695551 5 (1626W) SHEATH Prelude Merit 1 CBE-5B-66-35 741419 6919949 619250 5 6Fr 0.035 Medical (YZQ-4B-91-035) MULTIPACK Cardinal 1 839853 5 Pigtail 5 Fr Health catheter MULTIPACK JL Cardinal 1 717578 5 4.0 5Fr Health catheter MULTIPACK 3DRC Cardinal 1 819253 5 5Fr catheter Health Honeydew Honeydew 1 52028P 234337 058062 518613 8 [place] IVUS Catheter (61981E) CHOICE PT Extra Farber 1 [id number] 791858 115905 981756 5 Support 182cm Scientific wire ([id number]) INFLATOR Merit Merit 1 SN5635 568224 339369 950886 [facility] (XD2001) GUIDE 6FR HS II Medtronic 1 [id number] 723485 27447 853294 1 catheter (PE7JQGG) GENO RX 5.0 x Medtronic 1 [id number] 537792 8826369 993406 5 [id number] 18 stent ([id number]) GENO RX 5.0 x Medtronic 1 [id number] 352008 8368916 887092 5 [id number] 12 stent ([id number]) EXOSEAL 6Fr Cardinal 1 EX600 345564 289493 730377 10 (EX600) Health FEMSTOP Gold St Monster 1 H10400 741573 442649 888543 5 ([id number]) Signature Audit [place] Stage Time Signature Unsigned Intra-Procedure 04/27/2018 Alejandrina Neil 11:22:48 AM RT(R) Signatures Monitor : Alejandrina Neil RT Signature : Date : Time : [facility] [address] [place] [address]
--- NOTE | ~2018-04-26 | OP ---
PATIENT NAME: LYNDA KAHN MEDICAL RECORD: [id number] :59 LOCATION:D.M2 D.2111 ADMISSION DATE:04/26/18 SURGEON: SRIDHAR PARKER MD DATE OF OPERATION: 04/27/2018 PROCEDURES: 1. PTCA stent RCA. 2. Left heart catheterization. 3. Selective coronary angiography. 4. Left ventriculogram. 5. Intravascular ultrasound. INDICATION: Angina and coronary artery disease. PROCEDURE IN DETAIL: After informed consent was obtained and after a detailed description of risks, benefits as well as alternative therapies, the patient elected to proceed with angiogram and angioplasty. The right femoral area was prepped and draped in normal sterile fashion. The right femoral artery was cannulated via modified Seldinger technique with placement of a 6-[place] Zealander sheath. All catheters exchanged through this sheath. FINDINGS: Left ventriculogram was performed in standard 30-degree BROWN view, reveals good cardiac wall motion throughout all segments. Overall ejection fraction estimated at 50%. SELECTIVE CORONARY ANGIOGRAPHY: 1. Left main is with no significant angiographic disease. 2. Left anterior descending has moderate irregularities, but no flow-limiting stenosis. 3. The left circumflex has moderate irregularities, but no flow-limiting stenosis. 4. Right coronary artery has 2 areas of greater than 75% stenosis in the proximal and mid vessel confirmed by intravascular ultrasound. PTCA STENT OF THE RCA: The stent used was 5.0 x18 and 5.0 x 12, both [place] stents. Result was 0% residual stenosis. OVERALL IMPRESSION: Successful PTCA stent of the RCA going from 2 areas of greater than 75% stenosis to 0% residual. TRANSINT:[id number] Voice Confirmation ID: [id number] DOCUMENT ID: [id number] SRIDHAR PARKER MD at 1223 CC: [id number] DICTATION DATE: 04/27/18 1119 COBOL DEVELOPER: 04/27/18 1147 [place] [address]
[2018-04-26 17:23] LABS: BASOPHILS 0.2 % (0-2); EOSINOPHILS 2.4 % (0-7); HEMATOCRIT 38.7 % (42.0-54.0); HEMOGLOBIN 12.5 g/dL (13.5-17.5); IMMATURE GRANULOCYTES 0.4 % (0-5); MCH 26.6 pg (26.0-34.0); MCHC 32.3 g/dL (31.0-37.0); MCV 82.3 fL (80.0-100.0); MEAN PLATELET VOLUME 9.4 fL (7.4-10.4); MONOCYTES 7.3 % (2-11); NEUTROPHILS 70.7 % (40-80); PLATELET COUNT 248 10x3/uL (130-400); WBC 9.2 10x3/uL (4.8-10.8)
[2018-04-26 17:37] LABS: ALBUMIN 3.4 g/dL (3.4-5.0); ALKALINE PHOSPHATASE 55 U/L (46-116); ALT (SGPT) 33 U/L (10-68); BILIRUBIN - TOTAL 0.11 mg/dL (0.2-1.3); CALC OSMOLALITY 273 mosm/kg (275-300); CALCIUM 8.6 mg/dL (8.5-10.1); CARBON DIOXIDE 27.2 mmol/L (21.0-32.0); CHLORIDE - SERUM 100 mmol/L (98-107); CREATININE - SERUM 0.9 mg/dL (0.6-1.3); GLUCOSE 151 mg/dL (74-106); POTASSIUM - SERUM 4.2 mmol/L (3.5-5.1); SODIUM 136 mmol/L (136-145); UREA NITROGEN 11 mg/dL (7-18); eGFR NON AFRICAN AMERICAN > 90 mL/min (90-120)
[2018-04-26 17:48] LABS: CKMB 1.2 U/L (0.0-3.6); CREATINE KINASE 90 UL (21-232); PRO BNP 31 pg/mL (0-125); TROPONIN-I < 0.017 ng/mL (0.000-0.060)
[2018-04-26 19:00] VITALS: BP 113/76
[2018-04-26 20:00] VITALS: BP 113/80
[2018-04-26 21:00] VITALS: BP 129/80
[2018-04-26 22:00] VITALS: BP 131/86
[2018-04-26 23:35] VITALS: BP 148/84; Ht 177.8 cm; Wt 118.6 kg
[2018-04-27 00:20] VITALS: BP 148/84
[2018-04-27 05:44] VITALS: BP 119/69
[2018-04-27 10:22] LABS: CALC OSMOLALITY 274 mosm/kg (275-300); CALCIUM 8.9 mg/dL (8.5-10.1); CARBON DIOXIDE 23.6 mmol/L (21.0-32.0); CHLORIDE - SERUM 101 mmol/L (98-107); CREATININE - SERUM 0.8 mg/dL (0.6-1.3); GLUCOSE 134 mg/dL (74-106); POTASSIUM - SERUM 3.7 mmol/L (3.5-5.1); SODIUM 137 mmol/L (136-145); UREA NITROGEN 10 mg/dL (7-18); eGFR NON AFRICAN AMERICAN > 90 mL/min (90-120)
[2018-04-27 11:53] VITALS: BP 126/80
[2018-04-27 12:10] VITALS: BP 126/80
[2018-04-27 13:33] VITALS: BP 127/75
[2018-04-27] MEDS ORDERED: PLAVIX75 MG PO (14:45)
[2018-04-27 16:28] VITALS: BP 117/65
== END 2018-04-27 18:00 | disposition home or self-care (01) ==
LOC: D.ER 17:11 → D.M2 21:30 → OBSVTIME 21:30 → D.M2 21:58
PROVIDERS: Family Medicine; Internal Medicine Interventional Cardiology
DX: I25.110 Atherosclerotic heart disease of native coronary artery with unstable angina pectoris (principal); I10 Essential (primary) hypertension; E78.5 Hyperlipidemia, unspecified
CPT/HCPCS: 93458; 92978; C9600

== ENCOUNTER 2018-07-11 13:06 | Inpatient (IN) | payer MEDICARE, MEDICAID ==
[~2018-07-11] VITALS: Ht 177.8 cm; Wt 113.6 kg
--- NOTE | ~2018-07-11 | MORECARE ---
CASE MANAGEMENT DISCHARGE SUMMARY PATIENT: LYNDA KAHN UNIT: [id number] ADM DATE: 07/12/18 AGE: 62 : 59 SEX: M ROOM/BED: D.2237 AUTHOR: MARTHA,DOC PHYSICIAN: REFERRING PHYSICIAN: SALAS VELASCO MD DATE OF SERVICE: 07/15/18 Discharge Plan Patient Name: LYNDA KAHN Facility: [facility]:Joseph : 1955 Planned Disposition: Home Anticipated Discharge Date: Discharge Date: Expected LOS: Initial Reviewer: [email or web address] Initial Review Date: 07/15/2018 Generated: 07/15/18 5:02 pm Comments DCP- Discharge Planning Updated by [email or web address]: Ana Sosa on 07/15/18 2:[address] Received order for discharge. He agrees to [facility]. I called and spoke with Kari and clinical faxed. Denies any other needs at this time. CM will continue to follow and assist with discharge planning/needs. DCP- Discharge Planning Updated by [email or web address]: Ana Sosa on 07/15/18 8:[address] Patient Name: LYNDA KAHN Admission Status: ER Accout number: [id number] Admission Date: 07-12-2018 : 1955 Admission Diagnosis: Attending: SALAS VELASCO Current LOS: 3 Anticipated DC Date: Planned Disposition: Home Primary Insurance: [employer] ADV Discharge Planning Comments: CM met with patient to discuss discharge planning, he is alone in the room. He states he lives with his . States he has a cane and walker and will use his cane for ambulation when he goes home. States he has a glucometer, but cannot get the strips for it any more. I informed him he can get a glucometer at [facility] for 4 dollars or he can have his doctor write a prescription for a new meter and strips. States either his mother in law or father in law will take him home on discharge. Declines home health services offered. CM will continue to follow and assist with discharge planning/needs. Icing Maker: Ana Sosa DCPIA - Discharge Planning Initial Assessment Updated by [email or web address]: Ana Sosa on 07/15/18 9:25 am * Is the patient Alert and Oriented? Yes * How many steps to enter\exit or inside your home? Ramp-2/0 * PCP Dr. Esparza * [facility] [place] * Preadmission Environment Home with Family * ADLs Partial Dependent * Partial ADLs (Assistance needed) Ambulation * Equipment Cane Glucometer Walker * List name and contact numbers for known caregivers / representatives who currently or will assist patient after discharge: Britney motley - [phone] * Verbal permission to speak to the caregivers and representatives has been obtained from the patient. Yes * Community resources currently utilized None * Additional services required to return to the preadmission environment? No * Can the patient safely return to the preadmission environment? Yes * Has this patient been hospitalized within the prior 30 days at any hospital? No External Providers External Provider: [facility] Next Contact Date: Service Request Date: Service Type: Resolution: Reviewer: Comments: Coverage Notice Reviewer: [email or web address] Shekhar Sosa Notice Issued Date-Time: 07/15/2018 15:49 Notice Type: IM Discharge Notice Notice Delivered To: Patient Relationship to Patient: Self Retail Supervisor Name: Delivery Method: HAND - Hand Delivered Marylin Days: Prior Verbal Notification: Recipient Understood Notice: Yes Recipient Signature: Yes Med Rec Note Co-signed by Attending: Coverage Notice Comment: IMM explained, signed, copy given, original placed in MR Last DP export: 07/15/18 8:35 Patient Name: LYNDA KAHN Page 30648 at 1602 All edits/amendments must be made on the electronic document DICTATION DATE: 07/15/18 1601 SOCIAL MEDIA COMMUNITY MANAGER: CHET 07/15/18 1601 RPT#: [id number] DC DATE: STATUS: ADM IN [facility] [address] [place] [address] END OF REPORT
--- NOTE | ~2018-07-11 | MORECARE ---
CASE MANAGEMENT DISCHARGE SUMMARY PATIENT: LYNDA KAHN UNIT: [id number] ADM DATE: 07/12/18 AGE: 62 : 59 SEX: M ROOM/BED: D.2237 AUTHOR: FAUZIA THOMAS PHYSICIAN: REFERRING PHYSICIAN: SALAS VELASCO MD DATE OF SERVICE: 07/15/18 Discharge Plan Patient Name: LYNDA KAHN [facility] 1955 Planned Disposition: Home Anticipated Discharge Date: Discharge Date: Expected LOS: Initial Reviewer: [email or web address] Initial Review Date: 07/15/2018 Generated: 07/15/18 10:29 am DCPIA - Discharge Planning Initial Assessment Updated by [email or web address]: Ana Sosa on 07/15/18 9:25 am * Is the patient Alert and Oriented? Yes * How many steps to enter\exit or inside your home? Ramp-2/0 * PCP Dr. Esparza * Pharmacy [facility] in [place] * Preadmission Environment Home with Family * ADLs Partial Dependent * Partial ADLs (Assistance needed) Ambulation * Equipment Cane Glucometer Walker * List name and contact numbers for known caregivers / representatives who currently or will assist patient after discharge: Britney motley - [phone] * Verbal permission to speak to the caregivers and representatives has been obtained from the patient. Yes * Community resources currently utilized None * Additional services required to return to the preadmission environment? No * Can the patient safely return to the preadmission environment? Yes * Has this patient been hospitalized within the prior 30 days at any hospital? No Last DP export: 07/15/18 8:22 Patient Name: LYNDA KAHN Page 19835 at 0929 All edits/amendments must be made on the electronic document DICTATION DATE: 07/15/18927 CYLINDER DYER: CHET 07/15/18927 RPT#: [id number] DC DATE: STATUS: ADM IN [facility] [address] [place] [address] END OF REPORT
--- NOTE | ~2018-07-11 | MORECARE ---
CASE MANAGEMENT DISCHARGE SUMMARY PATIENT: LYNDA KAHN UNIT: [id number] ADM DATE: 07/12/18 AGE: 62 : 59 SEX: M ROOM/BED: D.2237 AUTHOR: FAUZIA THOMAS PHYSICIAN: REFERRING PHYSICIAN: SALAS VELASCO MD DATE OF SERVICE: 07/15/18 Discharge Plan Patient Name: LYNDA [facility]AH[facility] [facility] 1955 Planned Disposition: Home Anticipated Discharge Date: Discharge Date: Expected LOS: Initial Reviewer: [email or web address] Initial Review Date: 07/15/2018 Generated: 07/15/18 10:22 am Patient Name: LYNDA KAHN Page 33051 at 0922 All edits/amendments must be made on the electronic document DICTATION DATE: 07/15/18921 DISPATCHER RELAY: CHET 07/15/18921 RPT#: [id number] DC DATE: STATUS: ADM IN [facility] [address] [place] [address] END OF REPORT
--- NOTE | ~2018-07-11 | EC ---
PATIENT:LYNDA KAHN DATE OF SERVICE: 07/12/18 SEX: M MEDICAL RECORD: [id number] DATE OF : 59 LOCATION:D.MS [facility] AGE OF PATIENT: 62 ADMISSION DATE: 07/12/18 REFERRING PHYSICIAN: INTERPRETING PHYSICIAN: SRIDHAR VAZQUEZ MD ECHOCARDIOGRAM REPORT ECHO CHARGES 4 ECHO COMPLETE Date: 07/14/18 CLINICAL DIAGNOSIS: SOB ECHOCARDIOGRAPHIC MEASUREMENTS (adult normal given) AC root (d.<3.7cm) 3.9 cm LV Septum d (<1.2 cm> 1.3 cm Valve Excursion 2.0 cm LV Septum (systole) 1.6 cm Left Atria (s.<4.0cm> 3.5 cm LVPW d(<1.2cm) 0.8 cm RV (d.<2.3cm) 3.2 cm LVPW (sytole) 1.1 cm LV diastole(<5.6CM) 5.7 cm MV E-F(>70mm/sec) cm LV systole 4.4 cm LVOT Diameter 2.1 cm MV exc.(>10mm) cm Est.ejection fraction (50-75%) % DOPPLER: LVIT cm/sec A 77 cm/sec E 51 cm/sec LA cm/sec RVSP 15.8 mmHg LVOT 74 cm/sec AOP1/2T m/s Asc. Ao 114 cm/sec RVOT 65 cm/sec RA cm/sec PA 127 cm/sec AV Gradient Peak 5.2 mmHg AV Mean 3.1 mmHg AV Area 2.3 cm MV Gradient Peak 3.6 mmHg MV Mean 1.4 mmHg MV Area cm COMMENTS: Marketing Developer: Rob [facility] Coke Worker: 1 Dr. Vazquez TAPE# PACS Pericardial Effusion N DATE OF SERVICE: 07/14/2018 FINDINGS: 1. Left ventricular chamber size is within normal limits. Left ventricular systolic function is normal. Overall ejection fraction estimated at 60%. 2. Left atrium is within normal limits. Right atrium and right ventricular chamber sizes are mildly dilated. 3. Valvular structures have normal structure and motion. 4. Doppler interrogation reveals mild tricuspid regurgitation. No other valvular insufficiency or stenosis. Pulmonary systolic pressure is normal, ECHOCARDIOGRAM REPORT [id number] LYNDA KAHN estimated at 16 mmHg. 5. No evidence of pericardial effusion or left ventricular thrombus. TRANSINT:[id number] Voice Confirmation ID: [id number] DOCUMENT ID: [id number] SRIDHAR VAZQUEZ MD at 1228 CC: [id number] DICTATION DATE: 07/15/181115 PIE MAKER: 07/15/18 1126 DIS IN 07/15/18 [place] [id number] [place] [id number]
--- NOTE | ~2018-07-11 | MORECARE ---
CASE MANAGEMENT DISCHARGE SUMMARY PATIENT: LYNDA KAHN UNIT: [id number] ADM DATE: 07/12/18 AGE: 62 : 59 SEX: M ROOM/BED: D.2237 AUTHOR: MARTHA,DOC PHYSICIAN: REFERRING PHYSICIAN: SALAS VELASCO MD DATE OF SERVICE: 07/15/18 Discharge Plan Patient Name: LYNDA KAHN [facility]:[place] : 1955 Planned Disposition: Home Anticipated Discharge Date: Discharge Date: Expected LOS: Initial Reviewer: [email or web address] Initial Review Date: 07/15/2018 Generated: 07/15/18 10:35 am Comments DCP- Discharge Planning Updated by [email or web address]: Ana Sosa on 07/15/18 8:[address] Patient Name: LYNDA KAHN Admission Status: ER Accout number: [id number] Admission Date: 07-12-2018 : 1955 Admission Diagnosis: Attending: SALAS VELASCO Current LOS: 3 Anticipated DC Date: Planned Disposition: Home Primary Insurance: [employer] ADV Discharge Planning Comments: CM met with patient to discuss discharge planning, he is alone in the room. He states he lives with his . States he has a cane and walker and will use his cane for ambulation when he goes home. States he has a glucometer, but cannot get the strips for it any more. I informed him he can get a glucometer at [facility] for 4 dollars or he can have his doctor write a prescription for a new meter and strips. States either his mother in law or father in law will take him home on discharge. Declines home health services offered. CM will continue to follow and assist with discharge planning/needs. Benefits Advisor: Ana Sosa DCPIA - Discharge Planning Initial Assessment Updated by [email or web address]: Ana Sosa on 07/15/18 9:25 am * Is the patient Alert and Oriented? Yes * How many steps to enter\exit or inside your home? Ramp-2/0 * PCP Dr. Esparza * Pharmacy [facility] in [place] * Preadmission Environment Home with Family * ADLs Partial Dependent * Partial ADLs (Assistance needed) Ambulation * Equipment Cane Glucometer Walker * List name and contact numbers for known caregivers / representatives who currently or will assist patient after discharge: Britney motley - [phone] * Verbal permission to speak to the caregivers and representatives has been obtained from the patient. Yes * Community resources currently utilized None * Additional services required to return to the preadmission environment? No * Can the patient safely return to the preadmission environment? Yes * Has this patient been hospitalized within the prior 30 days at any hospital? No Last DP export: 07/15/18 8:29 Patient Name: LYNDA KAHN Page 81789 at 0935 All edits/amendments must be made on the electronic document DICTATION DATE: 07/15/18934 PROTOTYPE FABRICATOR: CHET 07/15/18934 RPT#: [id number] DC DATE: STATUS: ADM IN [facility] [address] [place] [address] END OF REPORT
[2018-07-11] MEDS ORDERED: LIPITOR10 MG PO (13:12)
[2018-07-11 13:57] LABS: BASOPHILS 0.3 % (0-2); EOSINOPHILS 4.4 % (0-7); HEMATOCRIT 41.7 % (42.0-54.0); HEMOGLOBIN 13.4 g/dL (13.5-17.5); IMMATURE GRANULOCYTES 0.3 % (0-5); LYMPHOCYTES 17.9 % (15-50); MCH 26.9 pg (26.0-34.0); MCHC 32.1 g/dL (31.0-37.0); MCV 83.6 fL (80.0-100.0); MEAN PLATELET VOLUME 9.1 fL (7.4-10.4); MONOCYTES 6.8 % (2-11); NEUTROPHILS 70.3 % (40-80); PLATELET COUNT 255 10x3/uL (130-400); RBC 4.99 10x6/uL (4.20-6.10); WBC 7.5 10x3/uL (4.8-10.8)
[2018-07-11 14:00] LABS: APPEARANCE CLEAR (CLEAR); BILIRUBIN NEGATIVE (NEGATIVE); COLOR YELLOW (YELLOW); GLUCOSE 50 mg/dL (NEGATIVE); KETONE NEGATIVE (NEGATIVE); NITRITE NEGATIVE (NEGATIVE); PROTEIN NEGATIVE (NEGATIVE); SPECIFIC GRAVITY 1.015 (1.005-1.020); UROBILINOGEN NORMAL (NORMAL)
[2018-07-11 14:01] LABS: BACTERIA FEW /hpf (NONE SEEN); EPITHELIAL CELLS RARE /hpf (0-5); MUCUS <1+ /lpf (NONE SEEN); WHITE CELLS - URINE RARE /hpf (0-5)
[2018-07-11 14:17] LABS: ALBUMIN 3.6 g/dL (3.4-5.0); ANION GAP 12.3 mmol/L (8-16); BILIRUBIN - TOTAL 0.18 mg/dL (0.2-1.3); CALCIUM 9.3 mg/dL (8.5-10.1); CARBON DIOXIDE 29.5 mmol/L (21.0-32.0); CREATININE - SERUM 1.1 mg/dL (0.6-1.3); POTASSIUM - SERUM 3.8 mmol/L (3.5-5.1); PROTEIN - SERUM 7.4 g/dL (6.4-8.2)
[2018-07-11 23:54] VITALS: BP 130/78; BMI 35.9
[2018-07-12 00:27] VITALS: BP 124/68
[2018-07-12 04:50] VITALS: BP 132/61
[2018-07-12 06:09] LABS: BASOPHILS 0.4 % (0-2); EOSINOPHILS 5.8 % (0-7); HEMATOCRIT 41.3 % (42.0-54.0); HEMOGLOBIN 13.3 g/dL (13.5-17.5); IMMATURE GRANULOCYTES 0.2 % (0-5); LYMPHOCYTES 22.5 % (15-50); MCH 26.7 pg (26.0-34.0); MCHC 32.2 g/dL (31.0-37.0); MCV 82.8 fL (80.0-100.0); MEAN PLATELET VOLUME 9.2 fL (7.4-10.4); NEUTROPHILS 64.1 % (40-80); PLATELET COUNT 263 10x3/uL (130-400); RBC 4.99 10x6/uL (4.20-6.10); RDW 14.2 % (11.5-14.5)
[2018-07-12 06:27] LABS: CALC OSMOLALITY 278 mosm/kg (275-300); CALCIUM 8.9 mg/dL (8.5-10.1); CARBON DIOXIDE 27.4 mmol/L (21.0-32.0); CHLORIDE - SERUM 102 mmol/L (98-107); GLUCOSE 140 mg/dL (74-106); POTASSIUM - SERUM 3.8 mmol/L (3.5-5.1); SODIUM 138 mmol/L (136-145); UREA NITROGEN 14 mg/dL (7-18)
[2018-07-12 06:28] LABS: CREATININE - SERUM 0.8 mg/dL (0.6-1.3); eGFR NON AFRICAN AMERICAN > 90 mL/min (90-120)
[2018-07-12 08:45] VITALS: BP 130/76
[2018-07-12 12:30] VITALS: BP 132/65
[2018-07-12 16:25] VITALS: BP 125/61
[2018-07-12 19:59] VITALS: BP 114/65
[2018-07-13] VITALS (8 sets, daily range): BP systolic 94–134; BP diastolic 55–87
[2018-07-13 06:18] LABS: BASOPHILS 0.4 % (0-2); EOSINOPHILS 6.4 % (0-7); HEMATOCRIT 41.6 % (42.0-54.0); HEMOGLOBIN 13.4 g/dL (13.5-17.5); IMMATURE GRANULOCYTES 0.3 % (0-5); LYMPHOCYTES 22.5 % (15-50); MCH 26.7 pg (26.0-34.0); MCHC 32.2 g/dL (31.0-37.0); MCV 82.9 fL (80.0-100.0); MEAN PLATELET VOLUME 9.7 fL (7.4-10.4); MONOCYTES 7.5 % (2-11); NEUTROPHILS 62.9 % (40-80); PLATELET COUNT 241 10x3/uL (130-400); RBC 5.02 10x6/uL (4.20-6.10); RDW 14.2 % (11.5-14.5); WBC 7.7 10x3/uL (4.8-10.8)
[2018-07-13 06:46] LABS: CALC OSMOLALITY 280 mosm/kg (275-300); CALCIUM 8.7 mg/dL (8.5-10.1); CARBON DIOXIDE 26.2 mmol/L (21.0-32.0); CHLORIDE - SERUM 102 mmol/L (98-107); CREATININE - SERUM 0.8 mg/dL (0.6-1.3); GLUCOSE 165 mg/dL (74-106); POTASSIUM - SERUM 4.1 mmol/L (3.5-5.1); SODIUM 138 mmol/L (136-145); UREA NITROGEN 14 mg/dL (7-18); eGFR NON AFRICAN AMERICAN > 90 mL/min (90-120)
[2018-07-14 04:24] LABS: BASOPHILS 0.5 % (0-2); EOSINOPHILS 6.1 % (0-7); HEMOGLOBIN 13.1 g/dL (13.5-17.5); IMMATURE GRANULOCYTES 0.3 % (0-5); LYMPHOCYTES 22.2 % (15-50); MCH 26.5 pg (26.0-34.0); MCV 82.8 fL (80.0-100.0); MEAN PLATELET VOLUME 9.3 fL (7.4-10.4); MONOCYTES 7.7 % (2-11); NEUTROPHILS 63.2 % (40-80); PLATELET COUNT 245 10x3/uL (130-400); RBC 4.95 10x6/uL (4.20-6.10); RDW 14.1 % (11.5-14.5); WBC 7.5 10x3/uL (4.8-10.8)
[2018-07-14 04:39] LABS: CALC OSMOLALITY 277 mosm/kg (275-300); CALCIUM 8.4 mg/dL (8.5-10.1); CARBON DIOXIDE 26.6 mmol/L (21.0-32.0); CHLORIDE - SERUM 101 mmol/L (98-107); CREATININE - SERUM 0.8 mg/dL (0.6-1.3); GLUCOSE 160 mg/dL (74-106); POTASSIUM - SERUM 4.1 mmol/L (3.5-5.1); SODIUM 138 mmol/L (136-145); UREA NITROGEN 11 mg/dL (7-18); eGFR NON AFRICAN AMERICAN > 90 mL/min (90-120)
[2018-07-14 08:14] VITALS: BP 119/77
[2018-07-14 09:24] VITALS: Ht 177.8 cm; Wt 113.6 kg
[2018-07-14 09:57] LABS: CHOL - HDL RATIO 4.5 ratio (2.3-4.9); LDL-HDL RATIO 2.5 ratio (1.5-3.5)
[2018-07-14 12:00] VITALS: BP 120/78; BP 130/79; BP 137/76
[2018-07-14 12:38] VITALS: BP 137/76
[2018-07-14 16:13] VITALS: BP 103/70
[2018-07-14 20:33] VITALS: BP 131/67
[2018-07-15 00:55] VITALS: BP 123/64
[2018-07-15 06:08] LABS: BASOPHILS 0.2 % (0-2); EOSINOPHILS 6.8 % (0-7); HEMATOCRIT 42.1 % (42.0-54.0); HEMOGLOBIN 13.4 g/dL (13.5-17.5); IMMATURE GRANULOCYTES 0.2 % (0-5); LYMPHOCYTES 18.9 % (15-50); MCH 26.4 pg (26.0-34.0); MCHC 31.8 g/dL (31.0-37.0); MCV 82.9 fL (80.0-100.0); MEAN PLATELET VOLUME 9.3 fL (7.4-10.4); NEUTROPHILS 65.9 % (40-80); PLATELET COUNT 255 10x3/uL (130-400); RBC 5.08 10x6/uL (4.20-6.10); RDW 13.9 % (11.5-14.5); WBC 8.1 10x3/uL (4.8-10.8)
[2018-07-15 06:19] LABS: CALC OSMOLALITY 280 mosm/kg (275-300); CALCIUM 8.7 mg/dL (8.5-10.1); CARBON DIOXIDE 27.5 mmol/L (21.0-32.0); CHLORIDE - SERUM 101 mmol/L (98-107); CREATININE - SERUM 0.9 mg/dL (0.6-1.3); GLUCOSE 164 mg/dL (74-106); POTASSIUM - SERUM 4.1 mmol/L (3.5-5.1); SODIUM 138 mmol/L (136-145); eGFR NON AFRICAN AMERICAN > 90 mL/min (90-120)
[2018-07-15 06:21] LABS: UREA NITROGEN 15 mg/dL (7-18)
[2018-07-15 09:21] VITALS: BP 143/87
[2018-07-15 10:02] VITALS: BP 143/87
[2018-07-15 12:03] VITALS: BP 143/79
[2018-07-15 17:12] VITALS: BP 144/81
== END 2018-07-15 18:26 | disposition home or self-care (01) | DRG 316 ==
LOC: D.ER 13:06 → OBSVTIME 16:51 → D.EDHOLD 16:51 → D.MS 18:33
PROVIDERS: Emergency Medicine; Internal Medicine Interventional Cardiology; Internal Medicine Nephrology
DX: I95.9 Hypotension, unspecified (principal); R42 Dizziness and giddiness; I10 Essential (primary) hypertension; E11.9 Type 2 diabetes mellitus without complications; I25.10 Atherosclerotic heart disease of native coronary artery without angina pectoris; E78.5 Hyperlipidemia, unspecified; J44.9 Chronic obstructive pulmonary disease, unspecified; E11.42 Type 2 diabetes mellitus with diabetic polyneuropathy

== ENCOUNTER 2018-08-24 20:56 | Observation (INO) | payer MEDICARE, MEDICAID ==
[~2018-08-24] VITALS: Ht 177.8 cm; Wt 111.4 kg
--- NOTE | ~2018-08-24 | HEMODYNAMI ---
PATIENT:LYNDA KAHN MEDICAL RECORD: [id number] : 59 LOCATION:[facility] D.2124 ADMISSION DATE: 08/24/18 Generatedon:08/25/201816:18 Patient name: LYNDA KAHN Patient #: [id number] SSN: DO B: 1955 Date of study: 08/25/2018 Page: Of Hemodynamic Procedure Report Patient Data Patient Demographics Procedure consent was obtained First Name: LYNDA Gender: Male Last Name: FEMI : 1955 [facility] Initial: L Age: 62 year(s) Patient #: [id number] Race: Unknown Additional ID: [id number] Contact details [address]: [address] [place] [address] State: [place] City: [place] Zip code: [address] Past Medical History Allergies Allergen Reaction Date Comments Reported Other allergy 12/20/2016 Ibuprofen Other allergy 12/21/2016 ibuprofen Other allergy 06/03/2017 ibuprofen, diclofenac Other allergy 06/04/2017 ibuprofen. diclofenac Other allergy 02/24/2018 ibuprofen, sweet potato Other allergy 04/27/2018 ibuprofen, sweet potato. Other allergy 08/25/2018 IBUPROFEN, SWEET POTATO Admission Admission Data Admission Date: 08/24/2018 Admission Time: 21:35 Room #: D.2124 Lab Results Lab Result Date: 08/25/2018 Lab Result Time: 0:00 Biochemistry Name Units Result Min Max BUN mg/dl 18 --(---*)-- 7 18 Creatinine mg/dl 0.8 --(-*--)-- 0.6 1.3 CBC Name Units Result Min Max Hemoglobin g/dl 12.6 -*(----)-- 13.5 17.5 Procedure Procedure Types Cath Procedure Diagnostic Procedure C [facility] w/Coronaries Procedure Description Procedure Date Procedure Date: 08/25/2018 Procedure Start Time: 16:09 Procedure End Time: 16:17 Procedure Staff Name Function Johnathon Vazquez MD Performing Physician Kassandra Spivey RT Monitor Jessica Pastor RN Nurse Tika Muñoz RT Scrub Procedure Data Cath Procedure Fluoroscopy Diagnostic fluoroscopy Total fluoroscopy Time: 0.8 time: 0.8 min min Diagnostic fluoroscopy Total fluoroscopy dose: 685 dose: 685 mGy mGy Contrast Material Contrast Material Type Amount (ml) Isovue 300 62 Entry Location Entry Primary Successful Side Size Upsize Upsize Entry Closure Succes sful Closure Location (Fr) 1 (Fr) 2 (Fr) Remarks Device Remarks Femoral Right 5 Fr Exoseal artery Estimated blood loss: 5 ml Diagnostic catheters Device Type Used For End Catheter Placement MULTIPACK Pigtail 5 Fr Procedure catheter MULTIPACK JL 4.0 5Fr Procedure catheter MULTIPACK 3DRC 5Fr Procedure catheter Procedure Complications No complications Procedure Medications Medication Administration Route Dosage 0.9% NaCl I.V. 100 ml/hr Oxygen etCO2 Nasal cannula 2 l/min Lidocaine 2% added to field 20 Heparin Flush Bag added to field 2 bags (1000units/500ml NS) Plavix P.O. 75 mg Versed I.V. 2 mg Fentanyl I.V. 50 mcg Versed I.V. 2 mg Fentanyl I.V. 50 mcg Versed I.V. 2 mg Hemodynamics Rest HGB: 12.6 (g/dl) Heart Rate: 62 (bpm) Snapshots Pre Cath Intra NCS Post Cath Vital Signs Time Heart Resp SPO2 etCO2 NIBP Rhythm Pain Sedation Rate (ipm) (%) (mmHg) (mmHg) Status Level (bpm) 15:48:38 66 13 96 30 122/71(97) NSR 0 (11) 10(A) , No pain 15:52:54 60 17 96 37.6 109/70(89) NSR 0 (11) 10(A) , No pain 15:57:08 59 11 96 37.6 118/65(81) NSR 0 (11) 10(A) , No pain 16:01:24 58 11 98 38.4 112/72(87) NSR 0 (11) 10(A) , No pain 16:05:38 62 11 98 42.1 117/70(93) NSR 0 (11) 10(A) , No pain 16:09:50 65 14 98 42.9 111/76(92) NSR 0 (11) 9(A) , No pain 16:14:06 70 11 97 44.4 113/68(95) NSR 0 (11) 10(A) , No pain Medications Time Medication Route Dose Verified Delivered Reason Notes E ffectiveness by by 15:48:54 0.9% NaCl I.V. 100 Johnathon Jessica used for ml/hr Taylor Pastor copy preparer 15:49:01 Oxygen etCO2 2 Johnathon Jessica used for Nasal l/min Taylor Pastor procedure cannula RN 15:49:06 Lidocaine 2% added 20ml Johnathon Johnathon for local to vial Taylor Vazquez MD anesthetic field 15:49:11 Heparin Flush added 2 Johnathon Johnathon used for Bag to bags Taylor Vazquez MD procedure (1000units/500ml field NS) 15:49:23 Plavix P.O. 75 mg Johnathon Jessica for Taylor Pastor antiplatelet RN therapy 16:02:05 Versed I.V. 2 mg Johnathon Jessica for sedation Taylor Pastor RN 16:02:09 Fentanyl I.V. 50 Johnathon Jessica for sedation mcg Taylor Pastor RN 16:06:19 Versed I.V. 2 mg Johnathon Jessica for sedation Taylor Pastor RN 16:06:23 Fentanyl I.V. 50 Johnathon Jessica for sedation mcg Taylor Pastor RN 16:09:09 Versed I.V. 2 mg Johnathon Jessica for sedation Taylor Pastor RN Procedure Log Time Note 15:36:16 Time tracking: Regular hours (M-F 7:00 - 5:00) 15:36:20 Plan of Care:Hemodynamics will remain stable., Cardiac rhythm will remain stable., Comfort level will be maintained., Respiratory function will remain adequate., Patient/ family verbilizes understanding of procedure., Procedure tolerated without complication., Recovers from procedure without complications.. 15:38:50 Jessica Pastor RN sent for patient. Start room use. 15:39:17 H&P Date Dictated: 08/24/2018 Within 30 days and on chart.. 15:39:36 Patient allergic to Other allergyIBUPROFEN, SWEET POTATO 15:40:04 Lab Result : Creatinine 0.8 mg/dl 15:40:04 Lab Result : BUN 18 mg/dl 15:40:04 Lab Result : Hemoglobin 12.6 g/dl 15:44:44 Patient received from Pre/Post Procedure Room to CCL 1 Alert and oriented. Tansferred to table in Supine position. 15:44:45 Warm blankets applied, and precious hugger turned on for patient comfort. 15:44:46 Correct patient and procedure confirmed by team. 15:44:48 Signed procedure consent form obtained from patient. 15:44:49 ECG and BP/O2 sat monitors applied to patient. 15:47:29 Vital chart was started 15:48:54 0.9% NaCl 100 ml/hr I.V. was administered by Jessica Pastor RN; used for procedure; 15:49:01 Oxygen 2 l/min etCO2 Nasal cannula was administered by Jessica Pastor RN; used for procedure; 15:49:06 Lidocaine 2% 20ml vial added to field was administered by Johnathon Vazquez MD; for local anesthetic; 15:49:11 Heparin Flush Bag (1000units/500ml NS) 2 bags added to field was administered by Johnathon Vazquez MD; used for procedure; 15:49:23 Plavix 75 mg P.O. was administered by Jessica Pastor RN; for antiplatelet therapy; 15:50:47 Baseline sample Acquired. 15:50:51 Rhythm: sinus rhythm 15:50:52 Full Disclosure recording started 15:50:53 Pre-procedure instructions explained to patient. 15:50:53 Pre-op teaching completed and patient verbalized understanding. 15:50:55 Family in patients room. 15:50:57 Patient NPO since Midnight. 15:50:59 Is patient on blood thinner?Yes 15:51:01 ACC The patient was administered the following blood thiners within the last 24 hours: ACCPlavix 15:51:02 Patient diabetic? Yes. 15:51:02 If diabetic: On Metformin? Yes 15:51:08 If on Metformin: Last Dose? 08/24/2018 15:51:10 Previous problem with sedation/anesthesia? No ? 15:51:11 Snore? Yes 15:51:12 Sleep apnea? No 15:51:14 Deviated septum? No 15:51:16 Opens mouth fully? Yes 15:51:17 Sticks out tongue? Yes 15:51:22 Airway obstruction? Yes ASTHMA CHILD 15:51:26 Dentures? Yes OUT 15:51:29 Pre procedure: right dorsailis pedis pulse 1+ Palpable, but thready & weak; easily obliterated 15:51:31 Patient pain scale 0/10 ?. 15:51:38 IV patent on arrival in left forearm with 0.9% NaCl at O. 15:52:00 Lab results completed and on chart. 15:52:03 Right groin area was prepped with chlora-prep and draped in sterile fashion 15:52:04 Alarms reviewed by R. N. 15:52:05 Sharps counted by scrub and verified by R.N. 15:55:40 Use device set Femoral Dx 15:55:41 ACIST Syringe (02394) opened to sterile field. 15:55:41 Bag Decanter (2002S) opened to sterile field. 15:55:42 ACIST Hand Control (25003) opened to sterile field. 15:55:43 ACIST Manifold (64910) opened to sterile field. 15:55:44 Tegaderm 4 x 4 (1626W) opened to sterile field. 15:55:46 Medline Cath Pack ([id number]) opened to sterile field. 15:55:46 DIAGNOSTIC WIRE .035 260cm J wire (610633) opened to sterile field. 15:55:47 DIAGNOSTIC Multipack 5Fr catheter set (NZ9456) opened to sterile field. 15:55:49 SHEATH 5FR [place] (HMC610) opened to sterile field. 16:01:36 --------ALL STOP TIME OUT------ 16:01:36 Final Timeout: patient, procedure, and site verified with staff and physician. All members of the team are in agreement. 16:01:39 Right groin site verified by team. 16:01:41 Physical assessment completed. ASA score P 2 - A patient with mild systemic disease as per Johnathon Vazquez MD. 16:01:44 Sedation plan: IV Moderate Sedation Medication:Versed, Fentanyl 16:01:47 Zero performed for pressure channel P1 16:02:05 Versed 2 mg I.V. was administered by Jessica Pastor RN; for sedation; 16:02:09 Fentanyl 50 mcg I.V. was administered by Jessica Pastor RN; for sedation; 16:06:19 Versed 2 mg I.V. was administered by Jessica Pastor RN; for sedation; 16:06:23 Fentanyl 50 mcg I.V. was administered by Jessica Pastor RN; for sedation; 16:09:09 Versed 2 mg I.V. was administered by Jessica Pastor RN; for sedation; 16:09:26 Procedure started. 16:09:39 Local anesthetic to right femoral artery with Lidocaine 2% by Johnathon Vazquez MD.INITIAL ACCESS ONLY 16:10:33 A 5 Fr sheath was inserted into the Right Femoral artery 16:10:40 A MULTIPACK Pigtail 5 Fr catheter was advanced over the wire and used for Procedure. 16:10:47 LV gram done using BROWN 16:10:49 Injector settings: Ml/sec: 10, Volume: 20, 16:11:16 EF : 60 % 16:11:19 Catheter removed. 16:11:27 A MULTIPACK JL 4.0 5Fr catheter was advanced over the wire and used for Procedure. 16:12:45 LCA angiography performed. 16:12:47 Catheter removed. 16:12:53 A MULTIPACK 3DRC 5Fr catheter was advanced over the wire and used for Procedure. 16:14:16 RCA angiography performed. 16:14:16 Catheter removed. 16:14:18 EXOSEAL 5Fr (EX500) opened to sterile field. 16:15:11 Sheath removed intact; hemostasis achieved with Exoseal to the Right Femoral artery. 16:15:12 Procedure ended.(Physican Out) 16:15:58 Fluoroscopy time 00.80 minutes. 16:16:02 Fluoroscopy dose: 685 mGy 16:16:02 Flurop Dose total: 685 16:16:05 Contrast amount:Isovue 300 62ml. 16:16:08 Post-op/insertion site Right Femoral artery dressed using a 4 x 4 and Tegaderm. 16:16:25 Post-procedure physical assessment completed. ASA score P 2 - A patient with mild systemic disease as per Johnathon Vazquez MD. 16:16:28 Post procedure rhythm: sinus rhythm 16:16:33 Estimated blood loss: 5 ml 16:16:34 Post procedure instruction explained to patient.Patient verbalizes understanding. 16:16:35 Patient needs reinforcement of post procedure teaching. 16:17:24 Procedure and supply charges have been captured, reviewed, submitted and are correct. 16:17:27 Procedure Complication : No complications 16:17:29 Vital chart was stopped 16:17:29 See physician's report for complete and final results. 16:17:32 Report given to Pre/Post Procedure Room. 16:17:34 Patient transfered to Pre/Post Procedure Room with Bed. 16:17:36 Procedure ended. 16:17:36 Full Disclosure recording stopped 16:17:44 End room use (Document Last) Device Usage Item Name Manufacture Quantity Catalog Hospital Part Current Minimal L ot# / Number Charge Number Stock Stock Serial# Code ACIST Acist 1 69751 372631 332470 173405 20 Syringe Medical (73840) Systems Inc Bag Microtek 1 2001S 066079 90263 272511 5 Decanter Medical Inc. () ACIST Hand Acist 1 54198 975050 846145 339967 5 Control Medical (81506) Systems Inc ACIST Acist 1 63085 349441 899640 878939 5 Manifold Medical (19049) Systems Inc Tegaderm 4 3M 1 1626W 454281 117281 553165 5 x 4 (1626W) Medline Medline 1 [id number] 436509 81733 616280 5 Cath Pack ([id number]) DIAGNOSTIC St Monster 1 814377 603653 993877 835800 30 WIRE .035 260cm J wire (446061) DIAGNOSTIC Cardinal 1 EP4138 429915 85409 611569 30 Multipack Health 5Fr catheter set (FJ2842) SHEATH 5FR Terumo 1 OQS779 611209 796485 560689 5 [place] (BWP573) MULTIPACK Cardinal 1 664943 5 Pigtail 5 Health Fr catheter MULTIPACK Cardinal 1 727656 5 JL 4.0 5Fr Health catheter MULTIPACK Cardinal 1 332684 5 3DRC 5Fr Health catheter EXOSEAL 5Fr Cardinal 1 EX500 046434 053702 718859 10 (EX500) Health Signature Audit Douglas Stage Time Signature Unsigned Intra-Procedure 08/25/2018 Kassandra Spivey 4:18:26 PM RT(R) Signatures Monitor : Kassandra Spivey Signature : RT Date : Time : [facility] [address] [place], [place] [id number]
[~2018-08-24 20:56] MED LIST changes: +LIPITOR10 MG PO
[2018-08-24 21:11] VITALS: BP 127/82
[2018-08-24 21:31] LABS: BASOPHILS 0.3 % (0-2); EOSINOPHILS 6.1 % (0-7); HEMATOCRIT 39.1 % (42.0-54.0); HEMOGLOBIN 12.6 g/dL (13.5-17.5); IMMATURE GRANULOCYTES 0.3 % (0-5); LYMPHOCYTES 20.3 % (15-50); MCH 26.6 pg (26.0-34.0); MCHC 32.2 g/dL (31.0-37.0); MCV 82.5 fL (80.0-100.0); MEAN PLATELET VOLUME 9.5 fL (7.4-10.4); MONOCYTES 5.1 % (2-11); NEUTROPHILS 67.9 % (40-80); PLATELET COUNT 270 10x3/uL (130-400); RBC 4.74 10x6/uL (4.20-6.10); RDW 14.1 % (11.5-14.5); WBC 11.1 10x3/uL (4.8-10.8)
[2018-08-24 21:32] VITALS: BP 117/66
[2018-08-24 21:38] LABS: INR 1.13 (0.85-1.17)
[2018-08-24 21:45] LABS: ALBUMIN 3.5 g/dL (3.4-5.0); ALKALINE PHOSPHATASE 61 U/L (46-116); ALT (SGPT) 37 U/L (10-68); BILIRUBIN - TOTAL 0.22 mg/dL (0.2-1.3); CALC OSMOLALITY 280 mosm/kg (275-300); CALCIUM 9.1 mg/dL (8.5-10.1); CARBON DIOXIDE 25.2 mmol/L (21.0-32.0); CHLORIDE - SERUM 102 mmol/L (98-107); CREATININE - SERUM 0.8 mg/dL (0.6-1.3); POTASSIUM - SERUM 3.7 mmol/L (3.5-5.1); PROTEIN - SERUM 7.2 g/dL (6.4-8.2); SODIUM 140 mmol/L (136-145); UREA NITROGEN 18 mg/dL (7-18); eGFR NON AFRICAN AMERICAN > 90 mL/min (90-120)
[2018-08-24 21:46] LABS: GLUCOSE 99 mg/dL (74-106)
[2018-08-24 21:57] LABS: CKMB 5.1 U/L (0.0-3.6); CREATINE KINASE 263 UL (21-232); MAGNESIUM - SERUM 1.9 mg/dL (1.8-2.4); TROPONIN-I < 0.017 ng/mL (0.000-0.060)
[2018-08-24] MEDS ORDERED: NOVOLIN 70/30 110 ML SC (22:38)
[2018-08-24 22:49] VITALS: BP 128/64; BMI 35.2
[2018-08-25 03:09] LABS: CKMB 3.4 U/L (0.0-3.6); CREATINE KINASE 216 UL (21-232)
[2018-08-25 03:10] LABS: TROPONIN-I < 0.017 ng/mL (0.000-0.060)
[2018-08-25 04:30] VITALS: BP 105/68
[2018-08-25 08:42] LABS: CKMB 3.5 U/L (0.0-3.6); CREATINE KINASE 178 UL (21-232); TROPONIN-I < 0.017 ng/mL (0.000-0.060)
[2018-08-25 08:44] VITALS: Ht 177.8 cm; Wt 111.4 kg
[2018-08-25 08:50] LABS: CALC OSMOLALITY 277 mosm/kg (275-300); CALCIUM 8.8 mg/dL (8.5-10.1); CARBON DIOXIDE 26.8 mmol/L (21.0-32.0); CHLORIDE - SERUM 102 mmol/L (98-107); CREATININE - SERUM 0.8 mg/dL (0.6-1.3); GLUCOSE 106 mg/dL (74-106); POTASSIUM - SERUM 3.8 mmol/L (3.5-5.1); SODIUM 138 mmol/L (136-145); UREA NITROGEN 18 mg/dL (7-18); eGFR NON AFRICAN AMERICAN > 90 mL/min (90-120)
[2018-08-25 09:40] LABS: BASOPHILS 0.5 % (0-2); EOSINOPHILS 7.7 % (0-7); HEMATOCRIT 39.5 % (42.0-54.0); HEMOGLOBIN 12.6 g/dL (13.5-17.5); IMMATURE GRANULOCYTES 0.1 % (0-5); LYMPHOCYTES 24.1 % (15-50); MCH 26.4 pg (26.0-34.0); MCHC 31.9 g/dL (31.0-37.0); MCV 82.8 fL (80.0-100.0); MEAN PLATELET VOLUME 9.6 fL (7.4-10.4); MONOCYTES 6.6 % (2-11); PLATELET COUNT 256 10x3/uL (130-400); RBC 4.77 10x6/uL (4.20-6.10); RDW 14.2 % (11.5-14.5)
[2018-08-25 09:41] LABS: WBC 7.9 10x3/uL (4.8-10.8)
--- NOTE | 2018-08-25 10:00 | NUR ---
ALERT AND ORIENTED X4. RESTING IN BED. CONSENTS FOR SENIOR HARDWARE ENGINEER SIGNED ON CHART. SINUS RHYTHM 70 ON TELEMETRY. DENIES ANY NEEDS. CONTINUE PLAN OF CARE AND SAFETY PRECAUTIONS.
[2018-08-25 10:14] VITALS: BP 119/76
--- NOTE | 2018-08-25 16:55 | NUR ---
DRESSING CDI, RESP WITH EASE. NSR, DENIES ANY C/O CHEST PAIN. HOB IS FLAT, NO FAMILY AT BEDSIDE, CALL LIGHT IS IN REACH.
--- NOTE | 2018-08-25 17:30 | NUR ---
1720 PT WALLACE PO FLUIDS WITH NO C/O NAUSEA. DRESSING CDI TO RIGHT GROIN. PEDAL PULSES PALPABLE. HOB IS FLAT, CALL LIGHT IN REACH.
--- NOTE | 2018-08-25 17:40 | NUR ---
HOB ELEVATED 30 DEGREES, SANDWICH AND PO FLUIDS AT BEDSIDE. CALL LIGHT IN REACH, PT DENIES NEEDS AT THIS TIME.
--- NOTE | 2018-08-25 17:53 | NUR ---
DR PARKER HAS ROUNDED ON PT. PT IS ALERT AND DENIES ANY C/O. DRESSING CDI TO RIGHT GROIN,
--- NOTE | 2018-08-25 18:00 | NUR ---
DRESSING IS CDI TO RIGHT GROIN, HOB FULLY ELEVATED. PT IS ALERT, HAS TOLERATED SANDWICH WITH NO C/O. PEDAL PULSES PALPABLE. FAMILY MEMEBER AT BEDSIDE.
--- NOTE | 2018-08-25 18:54 | NUR ---
1820 IV DC'D WITH CATH INTACT. DC INSTRUCTIONS REVIEWED WITH PT AND FATHER IN LAW WHO VERBALIZE UNDERSTANDING. PT DENIES ANY C/O. 1829 NURSE ASSITED PT TO DRESS FOR DC TO HOME. DRESSING TO RIGHT GROIN IS CDI. PT IS ALERT AND DENIES ANY C/O. PT ESCORTED TO BATHROOM VIA WC AND HAS VOIDED QS. PT ESCORTED TO PRIVATE AUTO WITH FATHER IN LAW DRIVING HIM HOME. PT HAS ALL PERSONAL BELONGINGS AND DENIES ANY C/O UPON DC TO HOME.
--- NOTE | 2018-08-26 10:23 | OP ---
PATIENT NAME: LYNDA KAHN MEDICAL RECORD: [id number] :59 LOCATION:[facility] ADMISSION DATE:08/24/18 SURGEON: SRIDHAR PARKER MD DATE OF OPERATION: 08/25/2018 PROCEDURES: 1. Left heart catheterization. 2. Selective coronary angiography. 3. Left ventriculogram. INDICATION: Angina and coronary artery disease. PROCEDURE IN DETAIL: After informed consent was obtained with detailed description of risks and benefits as well as alternative therapies, the patient elected to proceed with angiogram and heart catheterization. Right femoral area was prepped and draped in normal sterile fashion. Right femoral artery was cannulated via modified Seldinger technique with placement of 5-Uzbek sheath. All catheters were exchanged through this sheath. FINDINGS: Left ventriculogram performed in standard 30-degree BROWN view reveals good cardiac wall motion throughout all segments. Overall ejection fraction is estimated at 60%. SELECTIVE CORONARY ANGIOGRAPHY: 1. Left main is with no significant angiographic disease. 2. Left anterior descending has previously placed stents. These are widely patent with no significant restenosis. No disease else whitaker at the LAD or its branches. 3. Left circumflex has mild irregularities, but no flow-limiting stenosis. 4. Right coronary has previously placed stents. These are widely patent with no significant restenosis. No disease else whitaker at the RCA or its branches. OVERALL IMPRESSION: Wide patency of all the previously placed stents. No new disease else whitaker. Preserved LV function. Continue medical management of coronary artery disease and cardiac risk factors. TRANSINT:[id number] Voice Confirmation ID: [id number] DOCUMENT ID: [id number] SRIDHAR PARKER MD at 1023 CC: [id number] DICTATION DATE: 08/25/18 1619 PICTURE ENGRAVER: 08/25/18 1741 DIS IN 08/25/18 [place] [id number] [place] [id number]
== END 2018-08-25 18:30 | disposition home or self-care (01) ==
LOC: D.ER 20:56 → D.M2 21:35 → OBSVTIME 21:35 → D.M2 21:35 → D.CLR 08-25 16:24
PROVIDERS: Emergency Medicine; ADMIT Internal Medicine Interventional Cardiology
DX: I25.119 Atherosclerotic heart disease of native coronary artery with unspecified angina pectoris (principal); E11.40 Type 2 diabetes mellitus with diabetic neuropathy, unspecified; I10 Essential (primary) hypertension; F32.9 Major depressive disorder, single episode, unspecified; F41.9 Anxiety disorder, unspecified; E78.5 Hyperlipidemia, unspecified; Z72.0 Tobacco use

== ENCOUNTER 2018-10-02 18:34 | Emergency (ER) | payer MEDICARE, MEDICAID ==
[~2018-10-02] VITALS: Ht 177.8 cm; Wt 113.6 kg
[2018-10-02 18:36] VITALS: Ht 177.8 cm; Wt 113.6 kg
[2018-10-02 19:05] LABS: BASOPHILS 0.2 % (0-2); EOSINOPHILS 4.1 % (0-7); HEMATOCRIT 40.5 % (42.0-54.0); IMMATURE GRANULOCYTES 0.2 % (0-5); LYMPHOCYTES 17.9 % (15-50); MCH 26.4 pg (26.0-34.0); MCHC 32.1 g/dL (31.0-37.0); MCV 82.2 fL (80.0-100.0); MEAN PLATELET VOLUME 9.2 fL (7.4-10.4); MONOCYTES 5.1 % (2-11); NEUTROPHILS 72.5 % (40-80); PLATELET COUNT 242 10x3/uL (130-400); RBC 4.93 10x6/uL (4.20-6.10); RDW 14.3 % (11.5-14.5); WBC 10.2 10x3/uL (4.8-10.8)
[2018-10-02 19:14] LABS: APTT 30.4 SECONDS (22.8-39.4); INR 1.14 (0.85-1.17); PROTIME 14.1 SECONDS (11.6-15.0)
[2018-10-02 19:15] LABS: D-DIMER-QUANTITATIVE < 0.27 ug/mLFEU (0.20-0.54)
[2018-10-02 19:17] LABS: ALBUMIN 3.7 g/dL (3.4-5.0); ALKALINE PHOSPHATASE 70 U/L (46-116); ALT (SGPT) 28 U/L (10-68); BILIRUBIN - TOTAL 0.19 mg/dL (0.2-1.3); CALC OSMOLALITY 280 mosm/kg (275-300); CALCIUM 9.1 mg/dL (8.5-10.1); CARBON DIOXIDE 26.1 mmol/L (21.0-32.0); CHLORIDE - SERUM 102 mmol/L (98-107); CREATININE - SERUM 1.1 mg/dL (0.6-1.3); GLUCOSE 124 mg/dL (74-106); POTASSIUM - SERUM 4.1 mmol/L (3.5-5.1); PROTEIN - SERUM 7.5 g/dL (6.4-8.2); SODIUM 139 mmol/L (136-145); UREA NITROGEN 19 mg/dL (7-18); eGFR NON AFRICAN AMERICAN 72 mL/min (90-120)
[2018-10-02 19:29] LABS: CKMB 2.3 U/L (0.0-3.6); CREATINE KINASE 128 UL (21-232); MAGNESIUM - SERUM 1.8 mg/dL (1.8-2.4); TROPONIN-I < 0.017 ng/mL (0.000-0.060)
[2018-10-02 21:51] VITALS: BP 118/68
== END 2018-10-02 21:40 | disposition home or self-care (01) ==
LOC: D.ER 18:34
PROVIDERS: Family Medicine
DX: R07.9 Chest pain, unspecified (principal); I25.10 Atherosclerotic heart disease of native coronary artery without angina pectoris; E11.9 Type 2 diabetes mellitus without complications; I10 Essential (primary) hypertension

== ENCOUNTER 2018-11-01 13:55 | Outpatient (CLI) | payer MEDICARE, MEDICAID ==
[~2018-11-01] VITALS: Ht 177.8 cm; Wt 110.5 kg
--- NOTE | ~2018-11-01 | DS ---
PATIENT:LYNDA KAHN :59 MEDICAL RECORD: [id number] DISCHARGE SUMMARY ADMISSION DATE: 11/01/18 DISCHARGE DATE: 11/02/18 DISCHARGE DIAGNOSES: 1. Angina. 2. Coronary artery disease. 3. Previous percutaneous transluminal coronary angioplasty stent. 4. Hypertension. 5. Hyperlipidemia. 6. Obesity. 7. Insulin-dependent diabetes. HOSPITAL COURSE: Mr. Kahn presents with anginal symptomatology; however, cardiac catheterization reveals wide patency of the previously placed stents. He had Imdur 30 mg b.i.d. added to his medical regimen. Follow up with [facility] in 1 month. TRANSINT:[id number] Voice Confirmation ID: [id number] DOCUMENT ID: [id number] SRIDHAR PARKER MD CC: [id number] DICTATION DATE: 11/02/18 1038 FINISHER ACCORDION: 11/02/182058 [facility] CLI 11/02/18 [place] [id number] [place] [id number]
--- NOTE | ~2018-11-01 | HP ---
PATIENT: LYNDA MEEHAN MEDICAL RECORD: [id number] ACCOUNT: [id number] LOCATION:[address] : 59 ADMISSION DATE: 11/01/18 PCP: ANGELO PHILLIPS DO HISTORY AND PHYSICAL EXAMINATION DIAGNOSES: 1. Unstable angina. 2. Coronary artery disease. 3. Previous percutaneous transluminal coronary angioplasty and stent. 4. Hyperlipidemia. 5. Obesity. 6. Insulin-dependent diabetes. HISTORY OF PRESENT ILLNESS: Mr. Meehan presents with 3 days of increasing chest pain, chest discomfort compatible with angina. He does have a history of coronary artery disease. Last cardiac stent was last year. His chest pain is like that of his previous angina. It is in a worsening unstable fashion. PHYSICAL EXAMINATION: GENERAL APPEARANCE: Well nourished, well developed, appears stated age. Level of distress, comfortable. PSYCHIATRIC: Mental status, alert, normal affect. Orientation, oriented to time, place and person. EYES: Lids and conjunctivae, noninjected. No discharge, no pallor. ENT: Lips, teeth, gums, normal dentition. Oropharynx, no cyanosis, no pallor. NECK: Carotid arteries, bilateral normal upstroke, no bruits, no thrills. JUGULAR VEINS: No jugular venous pressure or distention. CERVICAL LYMPH NODES: Nontender, nonenlarged. THYROID: Not enlarged. Nontender. No nodules. LUNGS: Respiratory effort, unlabored. CHEST: Normal curvature. No thoracic deformity. No chest wall tenderness. Percussion, resonant. Auscultation, clear. No wheezes, no rales, no rhonchi. CARDIOVASCULAR: Precordial exam, nondisplaced. No heaves or pericardial thrills. Rate and rhythm, regular. Heart sounds, normal S1, normal S2. No S3, no gallop, no rub. Systolic murmur, not heard. Diastolic murmur, not heard. EXTREMITIES: No cyanosis, no edema. Peripheral pulses, full and equal in all extremities, except as noted. No bruits appreciated. ABDOMEN: Soft, nondistended. Normal aorta. No bruit. Nontender. No masses. Liver, nontender, no hepatomegaly. Spleen, nontender, no splenomegaly. MUSCULOSKELETAL: No joint tenderness. No joint swelling. No erythema. NEUROLOGICAL: Normal gait, normal strength, normal tone. SKIN: Warm and dry. OVERALL IMPRESSION: Chest pain compatible with angina in an unstable fashion. We will proceed with coronary angiography as most likely he has recurrent hemodynamically significant coronary artery disease. We will proceed with further care depending on the findings of the angiography. TRANSINT:[id number] Voice Confirmation ID: [id number] DOCUMENT ID: [id number] HISTORY AND PHYSICAL [id number] LYNDA MEEHAN JEFFREY MD CC: [id number] DICTATION DATE: 11/02/18835 GRAIN ELEVATOR OPERATOR: 11/02/18 1143 REG [facility] [address] [id number]
--- NOTE | ~2018-11-01 | OP ---
PATIENT NAME: LYNDA KAHN MEDICAL RECORD: [id number] :59 LOCATION:[facility] ADMISSION DATE: SURGEON: SRIDHAR PARKER MD DATE OF OPERATION: 11/02/2018 PROCEDURES: 1. Left heart catheterization. 2. Selective coronary angiography. 3. Left ventriculogram. INDICATION: Chest pain compatible with angina. PROCEDURE IN DETAIL: After informed consent was obtained with detailed explanation of risks and benefits as well as alternative therapies, the patient elected to proceed with angiogram and heart catheterization. The right femoral area was prepped and draped in normal sterile fashion. The right femoral artery was cannulated via modified Seldinger technique with placement of 6-Finnish sheath. All catheters were exchanged through this sheath. FINDINGS: Left ventriculogram performed in standard 30-degree BROWN view reveals good cardiac wall motion throughout all segments. Overall ejection fraction is estimated at 60%. SELECTIVE CORONARY ANGIOGRAPHY: 1. Left main is with no significant angiographic disease. 2. Left anterior descending has previously placed stents. These are widely patent with no significant restenosis. No disease elsewise at the LAD or its branches. 3. Left circumflex has moderate irregularities, but no flow-limiting stenosis. 4. Right coronary has previously placed stents. These are widely patent with no significant restenosis. No disease elsewise of the RCA or its branches. OVERALL IMPRESSION: Wide patency of the previously placed stents. No significant disease elsewhere. Continue medical management of the coronary artery disease and cardiac risk factors. TRANSINT:[id number] Voice Confirmation ID: [id number] DOCUMENT ID: [id number] SRIDHAR PARKER MD CC: [id number] DICTATION DATE: 11/02/18 1037 [facility]ATION DIV[facility] LIEUTENANT: 11/02/18 1620 [facility] CLI 11/02/18 [facility] [address] [id number]
--- NOTE | ~2018-11-01 | HEMODYNAMI ---
PATIENT:LYNDA KAHN MEDICAL RECORD: [id number] : 59 LOCATION:[facility] [address].2121 ADMISSION DATE: 11/01/18 Generatedon:11/02/201810:34 Patient name: LYNDA KAHN Patient #: [id number] SSN: DO B: 1955 Date of study: 11/02/2018 Page: Of Hemodynamic Procedure Report Patient Data Patient Demographics Procedure consent was obtained First Name: LYNDA Gender: Male Last Name: FEMI : 1955 [facility] Initial: L Age: 62 year(s) Patient #: [id number] Race: Unknown Additional ID: [id number] Contact details [address]: [address] [place] [address] State: [place] City: [place] Zip code: [address] Past Medical History Allergies Allergen Reaction Date Comments Reported Other allergy 12/20/2016 Ibuprofen Other allergy 12/21/2016 ibuprofen Other allergy 06/03/2017 ibuprofen, diclofenac Other allergy 06/04/2017 ibuprofen. diclofenac Other allergy 02/24/2018 ibuprofen, sweet potato Other allergy 04/27/2018 ibuprofen, sweet potato. Other allergy 08/25/2018 IBUPROFEN, SWEET POTATO Admission Admission Data Admission Date: 11/01/2018 Admission Time: 13:55 Room #: .2121 Height (in.): 69.69 BSA: 2.26 (m2) Height (cm.): 177 BMI: 35.11 (kg/m2) Weight (lbs.): 242.51 Weight (kg.): 110 Lab Results Lab Result Date: 11/02/2018 Lab Result Time: 0:00 Biochemistry Name Units Result Min Max BUN mg/dl 14 --(--*-)-- 7 18 Creatinine mg/dl 1 --(--*-)-- 0.6 1.3 CBC Name Units Result Min Max Hemoglobin g/dl 13 -*(----)-- 13.5 17.5 Procedure Procedure Types Cath Procedure Diagnostic Procedure LHC LHC w/Coronaries Procedure Description Procedure Date Procedure Date: 11/02/2018 Procedure Start Time: 10:25 Procedure End Time: 10:32 Procedure Staff Name Function Johnathon Vazquez MD Performing Physician Alejandrina Neil RT Monitor Jessica Pastor RN Nurse Amarilis Aguilar RT Scrub Procedure Data Cath Procedure Fluoroscopy Diagnostic fluoroscopy Total fluoroscopy Time: 1 time: 1 min min Diagnostic fluoroscopy Total fluoroscopy dose: 714 dose: 714 mGy mGy Contrast Material Contrast Material Type Amount (ml) Isovue 300 43 Entry Location Entry Primary Successful Side Size Upsize Upsize Entry Closure Succes sful Closure Location (Fr) 1 (Fr) 2 (Fr) Remarks Device Remarks Femoral Right 5 Fr Exoseal artery Estimated blood loss: 5 ml Diagnostic catheters Device Type Used For End Catheter Placement MULTIPACK Pigtail 5 Fr LV Angiography catheter MULTIPACK JL 4.0 5Fr Left Coronary catheter Angiography MULTIPACK 3DRC 5Fr Right Coronary catheter Angiography Procedure Complications No complications Procedure Medications Medication Administration Route Dosage 0.9% NaCl I.V. 100 ml/hr Oxygen etCO2 Nasal cannula 2 l/min Lidocaine 2% added to field 20 Heparin Flush Bag added to field 2 bags (1000units/500ml NS) Versed I.V. 2 mg Fentanyl I.V. 50 mcg Versed I.V. 2 mg Fentanyl I.V. 50 mcg Hemodynamics Rest BSA: 2.26 (m2) HGB: 13 (g/dl) O2 Consumption: Estimated: 255.9 (ml/min) O2 Consu mption indexed: Estimated:113.23 (ml/min/m) Heart Rate: 59 (bpm) Snapshots Pre Cath Intra NCS Post Cath Vital Signs Time Heart Resp SPO2 etCO2 NIBP (mmHg) Rhythm Pain Sedation Rate (ipm) (%) (mmHg) Status Level (bpm) 10:11:50 59 26 100 40.9 147/85(108) NSR 0 (11) 10(A) , No pain 10:16:08 60 13 100 46.2 136/84(102) NSR 0 (11) 10(A) , No pain 10:20:24 60 13 100 44.8 127/84(102) NSR 0 (11) 10(A) , No pain 10:24:41 61 13 100 44.7 134/84(104) NSR 0 (11) 10(A) , No pain 10:28:58 61 13 99 43.2 138/85(98) NSR 0 (11) 10(A) , No pain 10:33:17 67 16 99 43.9 143/88(103) NSR 0 (11) 10(A) , No pain Medications Time Medication Route Dose Verified Delivered Reason Notes Eff ectiveness by by 10:13:22 0.9% NaCl I.V. 100 Johnathon Jessica used for ml/hr Taylor Pastor clinical dietician 10:13:29 Oxygen etCO2 2 Johnathon Jessica used for Nasal l/min Taylor Pastor procedure cannula RN 10:13:34 Lidocaine 2% added 20ml Johnathon Johnathon for local to vial Taylor Vazquez MD anesthetic field 10:13:38 Heparin Flush added 2 Johnathon Johnathon used for Bag to bags Taylor Vazquez MD procedure (1000units/500ml field NS) 10:24:48 Versed I.V. 2 mg Johnathon Jessica for Taylor Pastor sedation RN 10:24:53 Fentanyl I.V. 50 Johnathon Jessica for mcg Taylor Pastor sedation RN 10:29:42 Versed I.V. 2 mg Johnathon Jessica for Taylor Pastor sedation RN 10:29:48 Fentanyl I.V. 50 Johnathon Jessica for mcg Taylor Pastor sedation quill layer Log Time Note 9:53:09 Patient Height : 69.69 inches 9:53:13 Patient Weight : 242.51 lbs 9:53:35 Lab Result : Hemoglobin 13 g/dl 9:53:35 Lab Result : Creatinine 1 mg/dl 9:53:35 Lab Result : BUN 14 mg/dl 9:53:59 Diagnostic Cath status Elective 9:54:01 Jessica Pastor RN sent for patient. Start room use. 9:54:02 Time tracking: Call back (After hours or weekends) 9:54:07 Plan of Care:Hemodynamics will remain stable., Cardiac rhythm will remain stable., Comfort level will be maintained., Respiratory function will remain adequate., Patient/ family verbilizes understanding of procedure., Procedure tolerated without complication., Recovers from procedure without complications.. 10:10:38 Vital chart was started 10:12:08 Patient received from Med II to CCL 1 Alert and oriented. Tansferred to table in Supine position. 10:12:09 Warm blankets applied, and precious hugger turned on for patient comfort. 10:12:09 Correct patient and procedure confirmed by team. 10:12:11 Signed procedure consent form obtained from patient. 10:12:12 Baseline sample Acquired. 10:12:12 ECG and BP/O2 sat monitors applied to patient. 10:12:16 Rhythm: sinus rhythm 10:12:18 Full Disclosure recording started 10:12:22 H&P Date Dictated: 11/02/2018 New H&P dictated by physician.. 10:12:24 Pre-procedure instructions explained to patient. 10:12:24 Pre-op teaching completed and patient verbalized understanding. 10:12:25 Family unavailable. 10:12:35 Is the patient allergic to Iodine/contrast media? No. 10:12:36 Was the patient premedicated? No 10:12:37 Is patient on blood thinner?Yes 10:12:39 ACC The patient was administered the following blood thiners within the last 24 hours: ACCPlavix 10:12:41 Patient diabetic? Yes. 10:12:42 If diabetic: On Metformin? Yes 10:12:46 If on Metformin: Last Dose? 11/01/2018 10:12:50 Previous problem with sedation/anesthesia? No ? 10:12:52 Snore? Yes 10:12:53 Sleep apnea? No 10:12:54 Deviated septum? No 10:12:54 Opens mouth fully? Yes 10:12:55 Sticks out tongue? Yes 10:12:59 Airway obstruction? Yes copd 10:13:03 Dentures? Yes out 10:13:07 Pre procedure: right dorsailis pedis pulse 2+ Normal; easily identifiable; not easily obliterated 10:13:08 Pre procedure: left dorsailis pedis pulse 2+ Normal; easily identifiable; not easily obliterated 10:13:10 Patient pain scale 0/10 ?. 10:13:16 IV patent on arrival in left forearm with 0.9% NaCl at [facility]. 10:13:18 Lab results completed and on chart. 10:13:22 0.9% NaCl 100 ml/hr I.V. was administered by Jessica Pastor RN; used for procedure; 10:13:26 Right groin area was prepped with chlora-prep and draped in sterile fashion 10:13:27 Alarms reviewed by Tj. N. 10:: Sharps counted by scrub and verified by R.N. 10::29 Oxygen 2 l/min etCO2 Nasal cannula was administered by Jessica Pastor RN; used for procedure; ::34 Lidocaine 2% 20ml vial added to field was administered by Johnathon Vazquez MD; for local anesthetic; ::38 Heparin Flush Bag (1000units/500ml NS) 2 bags added to field was administered by Johnathon Vazquez MD; used for procedure; ::37 Physician arrived 10:: --------ALL STOP TIME OUT------ ::38 Final Timeout: patient, procedure, and site verified with staff and physician. All members of the team are in agreement. 10::40 Right groin site verified by team. 10::43 Maximum allowable Isovue 300 dose 300ml. Physician notified. (300ml for normal creatinines. For patients with creatinine of 1.7 or higher multiply weight(kg) x 5 divided by creatinine.) 10::49 Fire Safety Assessment: A--An alcohol-based skin anteseptic being used preoperatively., C--Open oxygen or nitrous oxide is being used., D--An ESU, laser, or fiber-optic light is being used. 10:23:52 Physical assessment completed. ASA score P 2 - A patient with mild systemic disease as per Johnathon Vazquez MD. 10:23:56 Sedation plan: IV Moderate Sedation Medication:Versed, Fentanyl 10:24:44 Procedure started. 10:24:48 Versed 2 mg I.V. was administered by Jessica Pastor RN; for sedation; 10::53 Fentanyl 50 mcg I.V. was administered by Jessica Pastor RN; for sedation; 10:25:00 Local anesthetic to right femoral artery with Lidocaine 2% by Johnathon Vazquez MD.INITIAL ACCESS ONLY 10:25:25 A 5 Fr sheath was inserted into the Right Femoral artery 10:27:14 Use device set Femoral Dx 10:27:15 ACIST Syringe (65914) opened to sterile field. 10:27:16 Bag Decanter (2002) opened to sterile field. 10:27:16 Medline Cath Pack ([id number]) opened to sterile field. 10:27:17 DIAGNOSTIC WIRE .035 260cm J wire (322518) opened to sterile field. 10:27:18 ACIST Hand Control (92299) opened to sterile field. 10:27:19 ACIST Manifold (93699) opened to sterile field. 10:27:19 DIAGNOSTIC Multipack 5Fr catheter set (UC2431) opened to sterile field. 10:27:20 Tegaderm 4 x 4 (1626W) opened to sterile field. 10:27:21 SHEATH 5FR [place] (SZN239) opened to sterile field. 10:27:34 A MULTIPACK Pigtail 5 Fr catheter was advanced over the wire and used for LV Angiography. 10:28:13 LV gram done using BROWN 10:28:15 Injector settings: Ml/sec: 5, Volume: 15, 10:28:21 EF : 50 % 10:28:38 Catheter removed. 10:28:43 A MULTIPACK JL 4.0 5Fr catheter was advanced over the wire and used for Left Coronary Angiography. 10:29:03 LCA angiography performed. 10:29:06 Injector settings: Ml/sec: 3, Volume: 6, 10:29:42 Versed 2 mg I.V. was administered by Jessica Pastor RN; for sedation; 10::48 Fentanyl 50 mcg I.V. was administered by Jessica Pastor RN; for sedation; 10:29:48 Catheter removed. 10:29:51 A MULTIPACK 3DRC 5Fr catheter was advanced over the wire and used for Right Coronary Angiography. 10:30:44 RCA angiography performed. 10:31:05 Injector settings: Ml/sec: 3, Volume: 6, 10:31:07 EXOSEAL 5Fr (EX500) opened to sterile field. 10:31:17 Sheath removed intact; hemostasis achieved with Exoseal to the Right Femoral artery. 10:31:33 Procedure ended.(Physican Out) ::43 Fluoroscopy time 01.00 minutes. 10:31:48 Fluoroscopy dose: 714 mGy 10:31:48 Flurop Dose total: 714 10:31:52 Contrast amount:Isovue 300 43ml. 10:32:11 Sharps counted by scrub and verified by R.N. 10:32:16 Insertion/operative site no bleeding no hematoma. 10:32:18 Post-op/insertion site Right Femoral artery dressed using a 4 x 4 and Tegaderm. 10:32:22 Post procedure rhythm: unchanged. 10:32:26 Estimated blood loss: 5 ml 10:32:28 Post procedure instruction explained to patient.Patient verbalizes understanding. 10:32:28 Patient needs reinforcement of post procedure teaching. 10:32:34 Procedure and supply charges have been captured, reviewed, submitted and are correct. 10:32:39 Procedure Complication : No complications 10:32:43 Vital chart was stopped 10:32:45 See physician's report for complete and final results. 10:32:51 Report given to Med II. 10:32:53 Patient transfered to Med II with Stretcher. 10:32:55 Procedure ended. 10:32:55 Full Disclosure recording stopped 10:32:59 End room use (Document Last) Device Usage Item Name Manufacture Quantity Catalog Hospital Part Current Minimal L ot# / Number Charge Number Stock Stock Serial# Code ACIST Acist 1 37995 885280 378953 714124 20 Syringe Medical (75550) Systems Inc Bag Microtek 1 2001S 654324 50587 862796 5 Decanter Medical Inc. () Medline Medline 1 [id number] 685902 95982 445964 5 Cath Pack ([id number]) DIAGNOSTIC St Monster 1 857282 161390 343825 259686 30 WIRE .035 260cm J wire (960189) ACIST Hand Acist 1 86837 958140 373925 400376 5 Control Medical (11861) Systems Inc ACIST Acist 1 06910 144612 548319 892018 5 Manifold Medical (90390) Systems Inc DIAGNOSTIC Cardinal 1 GW3882 028538 79757 916551 30 Multipack Health 5Fr catheter set (TQ6219) Tegaderm 4 3M 1 1626W 305429 078689 646343 5 x 4 (1626W) SHEATH 5FR Terumo 1 XHM076 119530 517741 816433 5 [place] (APH083) MULTIPACK Cardinal 1 821993 5 Pigtail 5 Health Fr catheter MULTIPACK Cardinal 1 233698 5 JL 4.0 5Fr Health catheter MULTIPACK Cardinal 1 974890 5 3DRC 5Fr Health catheter EXOSEAL 5Fr Cardinal 1 EX500 832294 962938 691119 10 (EX500) Health Signature Audit [place] Stage Time Signature Unsigned Intra-Procedure 11/02/2018 Alejandrina Neil 10:34:22 AM RT(R) Signatures Monitor : Alejandrina Neil RT Signature : Date : Time : [place] [id number] [facility] [place] [address]
[2018-11-01] MEDS ORDERED: VITAMIN B COMPLEX (14:09)
[2018-11-01] MEDS ORDERED: VITAMIN D3400 UNI1 PO (14:09)
[2018-11-01] MEDS ORDERED: ASCORBIC ACID500 MG PO (14:10)
[2018-11-01 14:32] LABS: BASOPHILS 0.4 % (0-2); EOSINOPHILS 4.4 % (0-7); HEMOGLOBIN 12.7 g/dL (13.5-17.5); IMMATURE GRANULOCYTES 0.3 % (0-5); LYMPHOCYTES 20.6 % (15-50); MCH 26.1 pg (26.0-34.0); MCHC 31.8 g/dL (31.0-37.0); MCV 82.3 fL (80.0-100.0); MEAN PLATELET VOLUME 9.1 fL (7.4-10.4); MONOCYTES 6.2 % (2-11); NEUTROPHILS 68.1 % (40-80); PLATELET COUNT 249 10x3/uL (130-400); RBC 4.86 10x6/uL (4.20-6.10); RDW 14.5 % (11.5-14.5); WBC 9.4 10x3/uL (4.8-10.8)
[2018-11-01 14:46] LABS: ALBUMIN 3.6 g/dL (3.4-5.0); ALKALINE PHOSPHATASE 65 U/L (46-116); ALT (SGPT) 27 U/L (10-68); APTT 30.1 SECONDS (22.8-39.4); BILIRUBIN - TOTAL 0.27 mg/dL (0.2-1.3); CALC OSMOLALITY 274 mosm/kg (275-300); CALCIUM 8.7 mg/dL (8.5-10.1); CARBON DIOXIDE 29.5 mmol/L (21.0-32.0); CHLORIDE - SERUM 100 mmol/L (98-107); CREATININE - SERUM 0.9 mg/dL (0.6-1.3); GLUCOSE 102 mg/dL (74-106); INR 1.12 (0.85-1.17); POTASSIUM - SERUM 4.4 mmol/L (3.5-5.1); PROTEIN - SERUM 7.5 g/dL (6.4-8.2); PROTIME 13.9 SECONDS (11.6-15.0); SODIUM 137 mmol/L (136-145); UREA NITROGEN 16 mg/dL (7-18); eGFR NON AFRICAN AMERICAN > 90 mL/min (90-120)
[2018-11-01 14:56] LABS: CKMB 1.7 U/L (0.0-3.6); CREATINE KINASE 118 UL (21-232); MAGNESIUM - SERUM 1.8 mg/dL (1.8-2.4)
[2018-11-01 15:01] LABS: TROPONIN-I < 0.017 ng/mL (0.000-0.060)
[2018-11-01 17:33] VITALS: BP 112/79; Ht 177.8 cm; Wt 110.5 kg
--- NOTE | 2018-11-01 17:47 | NUR ---
PT ARRIVED TO UNIT FROM ER. PT IS A&O AND VERY FAMILIAR WITH SITUATION HE HAS HAD MANY HEART CATHERIZATIONS IN THE PAST. SITUATED PT IN ROOM AND ADMISSION WORKUP COMPLETED. ORDERED PT A DINNER TRAY AND TEACHING PROVIDED THAT HE WILL BE NPO AFTER MIDNIGHT FOR PROCEDURE AND HE VERBALIZED UNDERSTANDING. CONNECTED NS @75ML/HR ORDERED INFUSING VIA L.WRIST PIV WITH DRSG CDI AND SWAB CAPS IN USE. PT DENIES ANY ACTIVE CHEST PAIN AT THIS TIME. CL IN REACH, BED IN LOWEST, SIDE RAILS X2. WILL CPOC.
[2018-11-01 20:12] VITALS: BP 128/80
--- NOTE | 2018-11-01 20:57 | NUR ---
REPORT RECEIVED AND INITIAL ROUNDS COMPLETED. PT ALERT/ORIENTED. INSTRUCTED HIM ON NPO AFTER MIDNIGHT UNTIL SEEN BY COMPUTER FORENSICS EXAMINER IN AM. CURRENTLY 68/SR PER TELEMETRY. NS @ 75ML/HR INFUSING TO LEFT WRIST. MONITOR AND CPOC.
[2018-11-02 00:01] VITALS: BP 130/78
--- NOTE | 2018-11-02 02:12 | NUR ---
PT RESTING IN BED WITH NO DISTRESS. RESPS EVEN/NONLABRED. IVF INFUSING NS @ 75ML/HR. SR PER TELEMETRY. MONITOR AND CPOC.
[2018-11-02 04:00] VITALS: BP 126/84
[2018-11-02 05:37] LABS: BASOPHILS 0.5 % (0-2); EOSINOPHILS 5.8 % (0-7); HEMATOCRIT 40.8 % (42.0-54.0); IMMATURE GRANULOCYTES 0.3 % (0-5); LYMPHOCYTES 23.7 % (15-50); MCH 26.5 pg (26.0-34.0); MCHC 31.9 g/dL (31.0-37.0); MCV 83.3 fL (80.0-100.0); MEAN PLATELET VOLUME 9.7 fL (7.4-10.4); MONOCYTES 5.6 % (2-11); NEUTROPHILS 64.1 % (40-80); PLATELET COUNT 269 10x3/uL (130-400); RDW 14.6 % (11.5-14.5); WBC 8.6 10x3/uL (4.8-10.8)
[2018-11-02 05:51] LABS: CALC OSMOLALITY 275 mosm/kg (275-300); CALCIUM 8.8 mg/dL (8.5-10.1); CARBON DIOXIDE 28.1 mmol/L (21.0-32.0); CHLORIDE - SERUM 100 mmol/L (98-107); GLUCOSE 145 mg/dL (74-106); POTASSIUM - SERUM 4.6 mmol/L (3.5-5.1); SODIUM 136 mmol/L (136-145); UREA NITROGEN 14 mg/dL (7-18); eGFR NON AFRICAN AMERICAN 81 mL/min (90-120)
[2018-11-02 05:57] LABS: TROPONIN-I < 0.017 ng/mL (0.000-0.060)
[2018-11-02 06:17] LABS: INR 1.07 (0.85-1.17); PROTIME 13.4 SECONDS (11.6-15.0)
--- NOTE | 2018-11-02 09:33 | NUR ---
CONSENTS SIGNED FOR [facility]. IV RESTARTED BY MELODIE BOLAÑOS WITH 20 GAUGE CATH. PRE-OPS GIVEN. WILL CONT. PLAN OF CARE.
--- NOTE | 2018-11-02 10:54 | NUR ---
BACK FROM WEB PRODUCTION ASSISTANT. VS WNL. RIGHT GROIN STABLE WITHOUT BLEEDING OR HEMATOMA NOTED. WILL MONITOR.
[2018-11-02 11:11] VITALS: BP 108/77
--- NOTE | 2018-11-02 12:24 | NUR ---
BED REST UP. GROIN STABLE.
[2018-11-02] MEDS ORDERED: ISOSORBIDE MONO30 M1 PO (12:44)
--- NOTE | 2018-11-02 14:15 | NUR ---
IV AND TELEMETRY DCD. DC PLANS GIVEN. UNDERSTANDING VOICED. ESCORTED TO CAR BY W/C.
== END 2018-11-02 14:16 | disposition home or self-care (01) ==
LOC: D.ER 13:55 → D.OPS 13:55 → EDSTATUS 16:31 → D.M2 16:34 → D.OPS 11-02 14:16
PROVIDERS: Family Medicine; ATTEND Internal Medicine Interventional Cardiology
DX: I25.110 Atherosclerotic heart disease of native coronary artery with unstable angina pectoris (principal); E78.5 Hyperlipidemia, unspecified; E11.9 Type 2 diabetes mellitus without complications; E66.9 Obesity, unspecified; Z95.5 Presence of coronary angioplasty implant and graft

== ENCOUNTER → 2018-12-08 16:38 | Outpatient (CLI) | payer MEDICARE, MEDICAID ==
[2018-11-01 17:33] VITALS: BMI 34.9
[~2018-12-08 16:38] MED LIST changes: +ASCORBIC ACID500 MG PO; +ISOSORBIDE MONO30 M1 PO; +VITAMIN B COMPLEX; +VITAMIN D3400 UNI1 PO
[2018-12-08 17:15] LABS: CHOL - HDL RATIO 2.7 ratio (2.3-4.9); LDL-HDL RATIO 1.3 ratio (1.5-3.5)
== END | disposition home or self-care (01) ==
LOC: D.LABREF 16:38
PROVIDERS: ATTEND Internal Medicine Cardiovascular Disease
DX: I25.10 Atherosclerotic heart disease of native coronary artery without angina pectoris (principal)

== ENCOUNTER 2018-12-22 14:05 | Emergency (ER) | payer MEDICARE, MEDICAID ==
[~2018-12-22] VITALS: Ht 177.8 cm; Wt 113.6 kg
[2018-12-22 14:08] VITALS: Ht 177.8 cm; Wt 113.6 kg
[2018-12-22 14:54] LABS: BASOPHILS 0.3 % (0-2); EOSINOPHILS 4.1 % (0-7); HEMATOCRIT 37.8 % (42.0-54.0); HEMOGLOBIN 12.1 g/dL (13.5-17.5); IMMATURE GRANULOCYTES 0.2 % (0-5); LYMPHOCYTES 14.2 % (15-50); MCH 26.4 pg (26.0-34.0); MCV 82.4 fL (80.0-100.0); MEAN PLATELET VOLUME 9.2 fL (7.4-10.4); MONOCYTES 6.7 % (2-11); NEUTROPHILS 74.5 % (40-80); PLATELET COUNT 228 10x3/uL (130-400); RBC 4.59 10x6/uL (4.20-6.10); RDW 14.6 % (11.5-14.5); WBC 9.3 10x3/uL (4.8-10.8)
[2018-12-22 15:09] LABS: APPEARANCE CLEAR (CLEAR); BILIRUBIN NEGATIVE (NEGATIVE); COLOR YELLOW (YELLOW); GLUCOSE NEGATIVE (NEGATIVE); KETONE NEGATIVE (NEGATIVE); NITRITE NEGATIVE (NEGATIVE); PROTEIN NEGATIVE (NEGATIVE); UROBILINOGEN NORMAL (NORMAL)
[2018-12-22 15:32] LABS: ALBUMIN 3.5 g/dL (3.4-5.0); ANION GAP 11.2 mmol/L (8-16); BILIRUBIN - TOTAL 0.17 mg/dL (0.2-1.3); CALCIUM 8.8 mg/dL (8.5-10.1); CARBON DIOXIDE 27.2 mmol/L (21.0-32.0); CREATININE - SERUM 1.2 mg/dL (0.6-1.3); POTASSIUM - SERUM 4.4 mmol/L (3.5-5.1); PROTEIN - SERUM 6.9 g/dL (6.4-8.2)
[2018-12-22] MEDS ORDERED: ULTRAM50 MG PO (15:32)
[2018-12-22 16:07] VITALS: BP 126/70
== END 2018-12-22 16:08 | disposition home or self-care (01) ==
LOC: D.ER 14:05
PROVIDERS: Family Medicine
DX: M54.16 Radiculopathy, lumbar region (principal)

== ENCOUNTER → 2019-03-11 15:40 | Outpatient (CLI) | payer MEDICARE, MEDICAID ==
[2018-12-22 14:08] VITALS: BMI 35.9
[~2019-03-11 15:40] MED LIST changes: +ULTRAM50 MG PO
[2019-03-11 16:02] LABS: BASOPHILS 0.4 % (0-2); EOSINOPHILS 6.6 % (0-7); HEMATOCRIT 38.5 % (42.0-54.0); HEMOGLOBIN 12.6 g/dL (13.5-17.5); IMMATURE GRANULOCYTES 0.4 % (0-5); LYMPHOCYTES 15.3 % (15-50); MCH 26.6 pg (26.0-34.0); MCHC 32.7 g/dL (31.0-37.0); MCV 81.2 fL (80.0-100.0); MEAN PLATELET VOLUME 9.1 fL (7.4-10.4); MONOCYTES 6.3 % (2-11); PLATELET COUNT 217 10x3/uL (130-400); RBC 4.74 10x6/uL (4.20-6.10); RDW 14.4 % (11.5-14.5); WBC 8.2 10x3/uL (4.8-10.8)
== END | disposition home or self-care (01) ==
LOC: D.LAB 15:40
PROVIDERS: ATTEND Internal Medicine Gastroenterology
DX: R10.9 Unspecified abdominal pain (principal); R11.2 Nausea with vomiting, unspecified

== ENCOUNTER → 2019-04-21 13:00 | Outpatient (CLI) | payer MEDICARE, MEDICAID ==
[2018-12-22 14:08] VITALS: BMI 35.9
[~2019-04-21 13:00] MED LIST changes: +FLUTICASONE PRO16 GM NASAL; +LISINOPRIL20 MG PO; +MUCINEX DM ER1 EAC1 PO
== END | disposition home or self-care (01) ==
LOC: D.HCCARDIO 04-09 14:30 → D.HCCECHO 13:00 → D.HCCARDIO 13:30
PROVIDERS: ATTEND Internal Medicine Cardiovascular Disease
DX: I25.10 Atherosclerotic heart disease of native coronary artery without angina pectoris (principal)

== ENCOUNTER → 2019-06-12 10:34 | Outpatient (CLI) | payer MEDICARE, MEDICAID ==
[2019-04-25 06:46] VITALS: BMI 14.3
[~2019-06-12 10:34] MED LIST changes: +ASPIRIN EC81 M1 PO; +CYCLOBENZAPRINE10 MG PO; +PROTONIX40 MG PO; +TENORMIN50 MG PO
== END | disposition home or self-care (01) ==
LOC: D.US 06-05 11:00
PROVIDERS: ATTEND Internal Medicine Gastroenterology
DX: R10.9 Unspecified abdominal pain (principal); R11.0 Nausea

== ENCOUNTER 2019-07-02 14:32 | Emergency (ER) | payer MEDICARE, MEDICAID ==
[~2019-07-02] VITALS: Ht 177.8 cm; Wt 120.5 kg
[~2019-07-02 14:32] MED LIST changes: -ASPIRIN EC81 M1 PO; -CYCLOBENZAPRINE10 MG PO; -PROTONIX40 MG PO; -TENORMIN50 MG PO
[2019-07-02 14:36] VITALS: Ht 177.8 cm; Wt 120.5 kg
[2019-07-02] MEDS ORDERED: ASPIRIN EC81 M1 PO (14:38)
[2019-07-02] MEDS ORDERED: TENORMIN50 MG PO (14:39)
[2019-07-02 15:10] LABS: BASOPHILS 0.2 % (0-2); HEMOGLOBIN 12.2 g/dL (13.5-17.5); IMMATURE GRANULOCYTES 0.3 % (0-5); LYMPHOCYTES 11.9 % (15-50); MCH 26.7 pg (26.0-34.0); MCHC 31.3 g/dL (31.0-37.0); MCV 85.3 fL (80.0-100.0); MEAN PLATELET VOLUME 9.2 fL (7.4-10.4); MONOCYTES 5.3 % (2-11); NEUTROPHILS 76.3 % (40-80); PLATELET COUNT 257 10x3/uL (130-400); RBC 4.57 10x6/uL (4.20-6.10); RDW 13.8 % (11.5-14.5); WBC 9.2 10x3/uL (4.8-10.8)
[2019-07-02 15:20] LABS: APTT 30.4 SECONDS (22.8-39.4); INR 1.06 (0.85-1.17); PROTIME 13.3 SECONDS (11.6-15.0)
[2019-07-02 15:21] LABS: CALC OSMOLALITY 282 mosm/kg (275-300); CALCIUM 9.2 mg/dL (8.5-10.1); CARBON DIOXIDE 28.9 mmol/L (21.0-32.0); CHLORIDE - SERUM 100 mmol/L (98-107); CREATININE - SERUM 1.1 mg/dL (0.6-1.3); GLUCOSE 218 mg/dL (74-106); POTASSIUM - SERUM 3.9 mmol/L (3.5-5.1); SODIUM 138 mmol/L (136-145); UREA NITROGEN 13 mg/dL (7-18); eGFR NON AFRICAN AMERICAN 72 mL/min (90-120)
[2019-07-02 15:38] LABS: ALBUMIN 3.4 g/dL (3.4-5.0); ALKALINE PHOSPHATASE 72 U/L (46-116); ALT (SGPT) 30 U/L (10-68); BILIRUBIN - TOTAL 0.28 mg/dL (0.2-1.3); CKMB 2.6 U/L (0.0-3.6); CREATINE KINASE 120 UL (21-232); MAGNESIUM - SERUM 1.8 mg/dL (1.8-2.4)
[2019-07-02 15:40] LABS: TROPONIN-I < 0.017 ng/mL (0.000-0.060)
[2019-07-02] MEDS ORDERED: PROTONIX40 MG PO (15:59)
[2019-07-02] MEDS ORDERED: CYCLOBENZAPRINE10 MG PO (16:04)
[2019-07-02 17:20] VITALS: BP 122/72
== END 2019-07-02 17:20 | disposition home or self-care (01) ==
LOC: D.ER 14:32
PROVIDERS: Family Medicine
DX: R07.9 Chest pain, unspecified (principal); K21.9 Gastro-esophageal reflux disease without esophagitis; E11.40 Type 2 diabetes mellitus with diabetic neuropathy, unspecified; Z79.4 Long term (current) use of insulin; Z86.73 Personal history of transient ischemic attack (TIA), and cerebral infarction without residual deficits; I10 Essential (primary) hypertension; Z72.0 Tobacco use

== ENCOUNTER 2019-10-06 12:39 | Observation (INO) | payer MEDICARE, MEDICAID ==
[~2019-10-06] VITALS: Ht 177.8 cm; Wt 119.1 kg
--- NOTE | ~2019-10-06 | HEMODYNAMI ---
PATIENT:LYNDA KAHN MEDICAL RECORD: [id number] : 59 LOCATION:[facility] D.2115 ADMISSION DATE: 10/06/19 Generatedon:10/07/201913:06 Patient name: LYNDA KAHN Patient #: [id number] SSN: [id number] : 1955 Date of study: 10/07/2019 Page: Of Hemodynamic Procedure Report Patient Data Patient Demographics Procedure consent was obtained First Name: LYNDA Gender: Male Last Name: FEMI : 1955 Middle Initial: L Age: 63 year(s) Patient #: [id number] Race: Unknown SSN: [id number] Additional ID: [id number] Contact details [address]: [address] [place] [address] State: [place] City: [place] Zip code: [address] Past Medical History Allergies Allergen Reaction Date Comments Reported Other allergy 12/20/2016 Ibuprofen Other allergy 12/21/2016 ibuprofen Other allergy 06/03/2017 ibuprofen, diclofenac Other allergy 06/04/2017 ibuprofen. diclofenac Other allergy 02/24/2018 ibuprofen, sweet potato Other allergy 04/27/2018 ibuprofen, sweet potato. Other allergy 08/25/2018 IBUPROFEN, SWEET POTATO Admission Admission Data Admission Date: 10/06/2019 Admission Time: 17:14 Arrival Date: 10/07/2019 Arrival Time: 12:36 Admit Source: Emergency Insurance Payor: Medicare, department Medicaid Room #: D.2115 [facility] #: [id number] Height (in.): 69.69 BSA: 2.33 (m2) Height (cm.): 177 BMI: 37.98 (kg/m2) Weight (lbs.): 262.35 Weight (kg.): 119 Lab Results Lab Result Date: 10/07/2019 Lab Result Time: 0:00 Biochemistry Name Units Result Min Max BUN mg/dl 17 --(---*)-- 7 18 Creatinine mg/dl 0.9 --(-*--)-- 0.6 1.3 eGFR ml/min 90 --(*---)-- 90 120 NONAFRICAN CBC Name Units Result Min Max Hemoglobin g/dl 12.6 -*(----)-- 13.5 17.5 Procedure Procedure Types Cath Procedure Diagnostic Procedure [facility] w/Coronaries Procedure Description Procedure Date Procedure Date: 10/07/2019 Procedure Start Time: 12:57 Procedure End Time: 13:04 Procedure Staff Name Function Johnathon Vazquez MD Performing Physician Alejandrina Neil RT Monitor Amarilis Aguilar RT Scrub Sherie Briones RN Nurse Procedure Data Cath Procedure Fluoroscopy Diagnostic fluoroscopy Total fluoroscopy Time: 0.8 time: 0.8 min min Diagnostic fluoroscopy Total fluoroscopy dose: 375 dose: 375 mGy mGy Contrast Material Contrast Material Type Amount (ml) Isovue 300 37 Entry Location Entry Primary Successful Side Size Upsize Upsize Entry Closure Succes sful Closure Location (Fr) 1 (Fr) 2 (Fr) Remarks Device Remarks Femoral Right 5 Fr Exoseal artery Estimated blood loss: 5 ml Diagnostic catheters Device Type Used For End Catheter Placement MULTIPACK Pigtail 5 Fr LV Angiography catheter MULTIPACK JL 4.0 5Fr Left Coronary catheter Angiography MULTIPACK 3DRC 5Fr Right Coronary catheter Angiography Procedure Complications No complications Procedure Medications Medication Administration Route Dosage Oxygen etCO2 Nasal cannula 2 l/min Lidocaine 2% added to field 20 Heparin Flush Bag added to field 2 bags (1000units/500ml NS) 0.9% NaCl I.V. 100 ml/hr Versed I.V. 1 mg Fentanyl I.V. 50 mcg Versed I.V. 1 mg Fentanyl I.V. 50 mcg Hemodynamics Rest BSA: 2.33 (m2) HGB: 12.6 (g/dl) O2 Consumption: Estimated: 276.4 (ml/min) O2 Con sumption indexed: Estimated:118.63 (ml/min/m) Heart Rate: 73 (bpm) Pressure Samples Time Site Value (mmHg) Purpose Heart Use Rate(bpm) 13:00 LV 05/14,5 Snapshot 88 Snapshots Pre Cath Intra NCS Post Cath Vital Signs Time Heart Resp SPO2 etCO2 NIBP Rhythm Pain Sedation Rate (ipm) (%) (mmHg) (mmHg) Status Level (bpm) 12:54:25 74 13 97 27.7 115/73(90) NSR 0 (11) 10(A) , No pain 12:58:35 75 14 98 34.5 117/70(83) NSR 0 (11) 10(A) , No pain 13:02:46 75 13 97 35.3 129/71(96) NSR 0 (11) 9(A) , No pain 13:06:05 76 12 97 34.5 123/71(93) NSR 0 (11) 10(A) , No pain Medications Time Medication Route Dose Verified Delivered Reason Notes Eff ectiveness by by 12:53:34 Oxygen etCO2 2 Johnathon Sangeethaie used for Nasal l/min Taylor Briones RN procedure cannula 12:53:40 Lidocaine 2% added 20ml Johnathon Johnathon for local to vial Taylor Vazquez MD anesthetic field 12:53:48 Heparin Flush added 2 Johnathon Johnathon used for Bag to bags Taylor Vazquez MD procedure (1000units/500ml field NS) 12:53:57 0.9% NaCl I.V. 100 Johnathon Rehman Per ml/hr Taylor Briones RN physician 12:56:45 Versed I.V. 1 mg Johnathon Rehman for Taylor Briones RN sedation 12:56:50 Fentanyl I.V. 50 Johnathon Rehman for mcg Taylor Briones RN sedation 13:00:46 Versed I.V. 1 mg Johnathon Rehman for Taylor Briones RN sedation 13:00:50 Fentanyl I.V. 50 Johnathon Rehman for mcg Taylor Briones RN sedation Procedure Log Time Note 12:32:10 Diagnostic Cath Status : Urgent 12:32:41 Informed consent obtained and on chart 12:36:02 Arrival Date: 10/07/2019 12:36:00 PM 12:36:30 Insurance Payor : Medicare, Medicaid 12:36:35 Admit Source: Emergency department 12:36:44 Patient Height : 69.69 inches 12:36:47 Patient Weight : 262.35 lbs 12:37:41 Lab Result : BUN 17 mg/dl 12:37:41 Lab Result : Hemoglobin 12.6 g/dl 12:37:41 Lab Result : eGFR NONAFRICAN 90 ml/min 12:37:41 Lab Result : Creatinine 0.9 mg/dl 12:37:54 Sherie Briones RN sent for patient. Start room use. 12:37:55 Time tracking: Regular hours (M-F 7:00 - 5:00) 12:38:00 Plan of Care:Hemodynamics will remain stable., Cardiac rhythm will remain stable., Comfort level will be maintained., Respiratory function will remain adequate., Patient/ family verbilizes understanding of procedure., Procedure tolerated without complication., Recovers from procedure without complications.. 12:40:01 Patient received from Med II to [facility] 2 Alert and oriented. Tansferred to table in Supine position. 12:40:03 Warm blankets applied, and precious hugger turned on for patient comfort. 12:40:03 Correct patient and procedure confirmed by team. 12:40:04 ECG and BP/O2 sat monitors applied to patient. 12:40:06 Full Disclosure recording started 12:40:11 H&P Date Dictated: 10/07/2019 New H&P dictated by physician.. 12:40:14 Pre-procedure instructions explained to patient. 12:40:14 Pre-op teaching completed and patient verbalized understanding. 12:40:16 Family in patients room. 12:40:17 Patient NPO since Midnight. 12:40:19 Is the patient allergic to Iodine/contrast media? Yes. 12:46:28 Was the patient premedicated? Yes 12:46:35 Is patient on blood thinner?Yes 12:46:38 ACC The patient was administered the following blood thiners within the last 24 hours: ACCPlavix 12:46:40 Patient diabetic? Yes. 12:46:41 If diabetic: On Metformin? Yes 12:46:43 If on Metformin: Last Dose? 10/05/2019 12:46:49 Previous problem with sedation/anesthesia? No ? 12:46:51 Snore? Yes 12:46:53 Sleep apnea? No 12:46:54 Deviated septum? Yes 12:46:56 Opens mouth fully? Yes 12:46:57 Sticks out tongue? Yes 12:50:00 Airway obstruction? Yes copd, asthma 12:50:04 Dentures? No ? 12:50:07 Pre procedure: right dorsailis pedis pulse 2+ Normal; easily identifiable; not easily obliterated 12:50:09 Pre procedure: left dorsailis pedis pulse 2+ Normal; easily identifiable; not easily obliterated 12:50:11 Patient pain scale 0/10 ?. 12:50:19 IV patent on arrival in left forearm with 0.9% NaCl at O. 12:50:27 Lab results completed and on chart. 12:50:32 Risk of Mortality: 0.1 12:50:35 Risk of blood transfusion: 0.1 12:50:40 Risk of ANAT: 0.9 12:50:46 Right groin area was prepped with chlora-prep and draped in sterile fashion 12:50:47 Alarms reviewed by R. N. 12:50:48 Sharps counted by scrub and verified by R.N. 12:50:51 1) 90+ Normal kidney functon but urine findings or structural abnormalities or genetic trait point to kidney disease. 12:50:53 Maximum allowable contrast dose (3.7 X eGFR X 0.75)249 ml. 12:51:57 Sedation plan: IV Moderate Sedation Medication:Versed, Fentanyl 12:53:01 Use device set Femoral Dx 12:53:02 ACIST Syringe (17223) opened to sterile field. 12:53:03 Bag Decanter (2002S) opened to sterile field. 12:53:04 Medline Cath Pack ([id number]) opened to sterile field. 12:53:05 ACIST Hand Control (67128) opened to sterile field. 12:53:05 ACIST Manifold (26982) opened to sterile field. 12:53:06 DIAGNOSTIC Multipack 5Fr catheter set (AE9268) opened to sterile field. 12:53:07 Tegaderm 4 x 4 (1626W) opened to sterile field. 12:53:08 SHEATH 5FR [place] (TJN955) opened to sterile field. 12:53:08 EMERALD Guide Wire (233-849) opened to sterile field. 12:53:23 Vital chart was started 12:53:34 Oxygen 2 l/min etCO2 Nasal cannula was administered by Sherie Briones RN; used for procedure; Verbal order read back and verified. 12:53:40 Lidocaine 2% 20ml vial added to field was administered by Johnathon Vazquez MD; for local anesthetic; Verbal order read back and verified. 12:53:48 Heparin Flush Bag (1000units/500ml NS) 2 bags added to field was administered by Johnathon Vazquez MD; used for procedure; Verbal order read back and verified. 12:53:57 0.9% NaCl 100 ml/hr I.V. was administered by Sherie Briones RN; Per physician; Verbal order read back and verified. 12:55:01 Physician arrived 12:55:02 --------ALL STOP TIME OUT------ 12:55:02 Final Timeout: patient, procedure, and site verified with staff and physician. All members of the team are in agreement. 12:55:05 Right groin site verified by team. 12:55:08 Fire Safety Assessment: A--An alcohol-based skin anteseptic being used preoperatively., C--Open oxygen or nitrous oxide is being used., D--An ESU, laser, or fiber-optic light is being used. 12:55:12 Physical assessment completed. ASA score P 2 - A patient with mild systemic disease as per Johnathon Vazquez MD. 12:55:51 Baseline sample Acquired. 12:56:45 Versed 1 mg I.V. was administered by Sherie Briones RN; for sedation; Verbal order read back and verified. 12:56:50 Fentanyl 50 mcg I.V. was administered by Sherie Briones RN; for sedation; Verbal order read back and verified. 12:57:54 Procedure started. 12:57:57 Local anesthetic to right femoral artery with Lidocaine 2% by Johnathon Vazquez MD.INITIAL ACCESS ONLY 12:58:44 A 5 Fr sheath was inserted into the Right Femoral artery 12:58:58 A MULTIPACK Pigtail 5 Fr catheter was advanced over the wire and used for LV Angiography. 13:00:18 LV hemodynamics recorded. 13:00:19 LV gram done using BROWN 13:00:22 Injector settings: Ml/sec: 5, Volume: 15, 13:00:27 EF : 55 % 13:00:30 Catheter removed. 13:00:35 A MULTIPACK JL 4.0 5Fr catheter was advanced over the wire and used for Left Coronary Angiography. 13:00:46 Versed 1 mg I.V. was administered by Sherie Briones RN; for sedation; Verbal order read back and verified. 13:00:50 Fentanyl 50 mcg I.V. was administered by Sherie Briones RN; for sedation; Verbal order read back and verified. 13::08 Injector settings: Ml/sec: 3, Volume: 6, 13:01:29 Catheter removed. 13:01:34 A MULTIPACK 3DRC 5Fr catheter was advanced over the wire and used for Right Coronary Angiography. 13:02:11 RCA angiography performed. 13:02:13 Injector settings: Ml/sec: 3, Volume: 6, 13:02:28 Sheath removed intact; hemostasis achieved with Exoseal to the Right Femoral artery. 13:02:33 EXOSEAL 5Fr (EX500) opened to sterile field. 13:02:34 Procedure ended.(Physican Out) 13:02:57 Fluoroscopy time 00.80 minutes. 13:03:01 Fluoroscopy dose: 375 mGy 13:03:01 Flurop Dose total: 375 13:03:10 Dose Area Product 50122 mGy/cm. 13:03:16 Contrast amount:Isovue 300 37ml. 13:03:23 Maximum allowable dose exceeded? No. 13:03:24 Sharps counted by scrub and verified by R.N. 13:03:25 Insertion/operative site no bleeding no hematoma. 13:03:27 Post-op/insertion site Right Femoral artery dressed using a 4 x 4 and Tegaderm. 13:03:31 Post procedure rhythm: unchanged. 13:03:34 Estimated blood loss: 5 ml 13:03:36 Post procedure instruction explained to patient.Patient verbalizes understanding. 13:03:36 Patient needs reinforcement of post procedure teaching. 13:03:59 Procedure type changed to Cath procedure, Diagnostic procedure, LHC, [place] w/Coronaries 13:03:59 Procedure and supply charges have been captured, reviewed, submitted and are correct. 13:04:03 Procedure Complication : No complications 13:04:05 Vital chart was stopped 13:04:07 [place] Findings: mild to moderate CAD (<70%) 13:04:10 Operative report dictated upon procedure completion. 13:04:10 See physician's report for complete and final results. 13:04:24 Report given to [facility]. 13:04:26 Patient transfered to [facility] II with Stretcher. 13:04:28 Procedure ended. 13:04:28 Full Disclosure recording stopped 13:04:34 End room use (Document Last) 13:04:59 End room use (Document Last) 13:05:18 End room use (Document Last) Device Usage Item Name Manufacture Quantity Catalog Hospital Part Current Minimal L ot# / Number Charge Number Stock Stock Serial# Code ACIST Acist 1 97645 472173 352113 807565 20 Syringe Medical (96103) Systems Inc Bag Microtek 1 032739 97502 129428 5 Decanter Medical Inc. () Medline Medline 1 [id number] 222513 14837 641985 5 Cath Pack ([id number]) ACIST Hand Acist 1 56136 439857 431116 412186 5 Control Medical (04189) Systems Inc ACIST Acist 1 11236 216238 037921 789615 5 Manifold Medical (06057) Systems Inc DIAGNOSTIC Cardinal 1 VP2919 040738 40598 932825 30 Multipquickhuddle 5Fr catheter set (JN2322) Tegaderm 4 3M 1 1626W 053629 070963 846782 5 x 4 (1626W) SHEATH 5FR Terumo 1 OXP366 427298 329674 362359 5 [place] (RSQ498) EMERALD Cardinal 1 303-895 563819 208862 751883 5 Guide Wire [facility] (954-412) MULTIPACK Cardinal 1 635035 5 Pigtail 5 Health Fr catheter MULTIPACK Cardinal 1 458357 5 JL 4.0 5Fr Health catheter MULTIPACK Cardinal 1 346112 5 3DRC 5Fr Health catheter EXOSEAL 5Fr Cardinal 1 EX500 283237 938477 377927 10 (EX500) Health Signature Audit Diamond Stage Time Signature Unsigned Intra-Procedure 10/07/2019 Alejandrina Neil 1:05:00 PM RT(R) Intra-Procedure 10/07/2019 Sherie Briones RN 1:05:18 PM Intra-Procedure 10/07/2019 Johnathon Vazquez 1:06:28 PM Signatures Performing Physician : Signature : Johnathon Vazquez MD Date : Time : Monitor : Alejandrina Neil RT Signature : Date : Time : Nurse : Sherie Briones RN Signature : Date : Time : [address] [place] [address]
--- NOTE | ~2019-10-06 | OP ---
PATIENT NAME: LYNDA KAHN MEDICAL RECORD: [id number] :59 LOCATION:D.M2 D.5 ADMISSION DATE:10/06/19 SURGEON: SRIDHAR PARKER MD DATE OF OPERATION: 10/07/2019 PROCEDURES: 1. Left heart catheterization. 2. Selective coronary angiography. 3. Left ventriculogram. INDICATION: Angina and coronary artery disease. PROCEDURE PERFORMED: After detailed description of risks, benefits, as well as alternative therapies, the patient elected to proceed with angiogram and heart catheterization. The right radial area was prepped and draped in normal sterile fashion. Right radial artery was cannulated via modified Seldinger technique with placement of 6-Indonesian sheath. All catheters exchanged through this sheath. FINDINGS: Left ventriculogram was performed in standard 30-degree BROWN view, reveals good cardiac wall motion, ejection fraction estimated 60%. SELECTIVE CORONARY ANGIOGRAPHY: 1. Left main is with no significant angiographic disease. 2. Left anterior descending has previously placed stents, these are widely patent with no significant restenosis. No disease elsewise throughout the LAD or its branches. 3. Left circumflex has moderate irregularities, but no flow-limiting stenosis. 4. The right coronary has previously placed stents, these are widely patent with no significant restenosis. No disease elsewise of the RCA or its branches. OVERALL IMPRESSION: Wide patency of the previously placed stents, no disease elsewise. Continue medical management of the coronary artery disease and cardiac risk factors. TRANSINT:[id number] Voice Confirmation ID: [id number] DOCUMENT ID: [id number] SRIDHAR PARKER MD CC: [id number] DICTATION DATE: 10/07/191528 SPECIAL NEEDS TEACHER: 10/07/192035 ADM IN [place] [id number] [place] [address]
[~2019-10-06 12:39] MED LIST changes: +ASPIRIN EC81 M1 PO; +CYCLOBENZAPRINE10 MG PO; +PROTONIX40 MG PO; +TENORMIN50 MG PO
--- NOTE | 2019-10-06 12:54 | NUR ---
TAKES ASPRIN DAILY AND HAD 2 ASA ENROUTE PER EMS
[2019-10-06 13:14] VITALS: BP 152/83
[2019-10-06 13:17] LABS: BASOPHILS 0.2 % (0-2); EOSINOPHILS 2.7 % (0-7); HEMATOCRIT 39.7 % (42.0-54.0); HEMOGLOBIN 12.7 g/dL (13.5-17.5); IMMATURE GRANULOCYTES 0.2 % (0-5); MCH 26.1 pg (26.0-34.0); MCV 81.7 fL (80.0-100.0); MEAN PLATELET VOLUME 8.7 fL (7.4-10.4); MONOCYTES 5.9 % (2-11); PLATELET COUNT 244 10x3/uL (130-400); RBC 4.86 10x6/uL (4.20-6.10); RDW 14.3 % (11.5-14.5); WBC 9.6 10x3/uL (4.8-10.8)
[2019-10-06 13:40] LABS: CALC OSMOLALITY 280 mosm/kg (275-300); CALCIUM 8.7 mg/dL (8.5-10.1); CARBON DIOXIDE 25.5 mmol/L (21.0-32.0); CHLORIDE - SERUM 100 mmol/L (98-107); POTASSIUM - SERUM 3.9 mmol/L (3.5-5.1); SODIUM 134 mmol/L (136-145); UREA NITROGEN 22 mg/dL (7-18); eGFR NON AFRICAN AMERICAN 81 mL/min (90-120)
[2019-10-06 13:49] LABS: GLUCOSE 282 mg/dL (74-106)
[2019-10-06 13:51] LABS: INR 0.99 (0.85-1.17); PROTIME 13.1 SECONDS (11.6-15.0)
[2019-10-06 13:52] LABS: APTT 30.7 SECONDS (22.8-39.4)
[2019-10-06 13:55] LABS: ALBUMIN 3.6 g/dL (3.4-5.0); ALKALINE PHOSPHATASE 66 U/L (30-120); ALT (SGPT) 26 U/L (10-68); BILIRUBIN - TOTAL 0.23 mg/dL (0.2-1.3); CKMB 1.3 U/L (0.0-3.6); CREATINE KINASE 94 UL (21-232); MAGNESIUM - SERUM 1.9 mg/dL (1.8-2.4); PROTEIN - SERUM 7.3 g/dL (6.4-8.2); TROPONIN-I < 0.017 ng/mL (0.000-0.060)
[2019-10-06 14:37] VITALS: BP 126/80
[2019-10-06 17:43] VITALS: BP 147/84
[2019-10-06 18:19] LABS: CKMB 2.5 U/L (0.0-3.6); CREATINE KINASE 88 UL (21-232)
[2019-10-06 18:28] LABS: TROPONIN-I < 0.017 ng/mL (0.000-0.060)
[2019-10-06 18:46] LABS: % SATURATION 16 % (15-55); IRON 59 ug/dl (35-150); TOTAL IRON BIND CAPACITY 350 ug/dl (260-445); UNSAT IRON BIND CAPACITY 291 ug/dl (150-375)
--- NOTE | 2019-10-06 19:30 | NUR ---
PATIENT ARRIVED FROM ER. PATIENT IS ALERT AND ORIENTED, RESTING COMFORTABLY IN BED. RESPIRATIONS ARE EVEN AND UNLABORED. PATIENT REQUESTING SOMETHING TO EAT. ORDERS CHECKED, SANDWICH BOX PROVIDED. NO S/S OF DISTRESS. NO C/O PAIN. CALL LIGHT WITHIN REACH. WILL CPOC.
[2019-10-06 19:40] LABS: APTT 31.3 SECONDS (22.8-39.4)
[2019-10-06 19:41] LABS: D-DIMER-QUANTITATIVE < 0.27 ug/mLFEU (0.20-0.54)
[2019-10-06 20:00] VITALS: BP 140/79
[2019-10-06] MEDS ORDERED: COZAAR50 MG PO (20:12)
--- NOTE | 2019-10-06 20:52 | NUR ---
PHARMACY CALLED TO VERIFY PATIENT MEDICATION ISOSORBIDE MONO ER. VERIFIED WITH PATIENT MEDICATION BOTTLE AND ANOTHER NURSE PATIENT TAKES THE MEDICATION BID.
[2019-10-06 22:50] VITALS: BP 140/79; BMI 37.6
[2019-10-07] VITALS: BP 129/65
[2019-10-07 00:05] LABS: CKMB 0.8 U/L (0.0-3.6); CREATINE KINASE 85 UL (21-232); TROPONIN-I < 0.017 ng/mL (0.000-0.060)
[2019-10-07 04:00] VITALS: BP 165/75
[2019-10-07 08:01] LABS: ALBUMIN 3.4 g/dL (3.4-5.0); ALKALINE PHOSPHATASE 60 U/L (30-120); ALT (SGPT) 24 U/L (10-68); BILIRUBIN - TOTAL 0.36 mg/dL (0.2-1.3); CALC OSMOLALITY 276 mosm/kg (275-300); CALCIUM 8.7 mg/dL (8.5-10.1); CARBON DIOXIDE 25.8 mmol/L (21.0-32.0); CHLORIDE - SERUM 102 mmol/L (98-107); CKMB 0.7 U/L (0.0-3.6); CREATINE KINASE 75 UL (21-232); CREATININE - SERUM 0.9 mg/dL (0.6-1.3); MAGNESIUM - SERUM 1.9 mg/dL (1.8-2.4); POTASSIUM - SERUM 3.8 mmol/L (3.5-5.1); SODIUM 136 mmol/L (136-145); TROPONIN-I < 0.017 ng/mL (0.000-0.060); UREA NITROGEN 17 mg/dL (7-18); eGFR NON AFRICAN AMERICAN > 90 mL/min (90-120)
[2019-10-07 08:03] LABS: GLUCOSE 144 mg/dL (74-106)
[2019-10-07 08:31] LABS: BASOPHILS 0.3 % (0-2); EOSINOPHILS 4.6 % (0-7); HEMATOCRIT 39.9 % (42.0-54.0); HEMOGLOBIN 12.6 g/dL (13.5-17.5); IMMATURE GRANULOCYTES 0.3 % (0-5); LYMPHOCYTES 20.1 % (15-50); MCH 25.8 pg (26.0-34.0); MCHC 31.6 g/dL (31.0-37.0); MCV 81.6 fL (80.0-100.0); MEAN PLATELET VOLUME 9.4 fL (7.4-10.4); MONOCYTES 7.1 % (2-11); NEUTROPHILS 67.6 % (40-80); PLATELET COUNT 238 10x3/uL (130-400); RBC 4.89 10x6/uL (4.20-6.10); RDW 14.6 % (11.5-14.5); WBC 8.7 10x3/uL (4.8-10.8)
[2019-10-07 08:58] VITALS: Ht 177.8 cm; Wt 119.1 kg
[2019-10-07 09:00] VITALS: BP 117/70
--- NOTE | 2019-10-07 09:00 | NUR ---
CONSENTS SIGNED FOR [facility]. WILL CONT. PLAN OF CARE.
[2019-10-07 09:21] LABS: CHOL - HDL RATIO 4.1 ratio (2.3-4.9); LDL-HDL RATIO 2.3 ratio (1.5-3.5)
[2019-10-07 09:41] LABS: BILIRUBIN NEGATIVE (NEGATIVE); GLUCOSE NEGATIVE (NEGATIVE); KETONE NEGATIVE (NEGATIVE); NITRITE NEGATIVE (NEGATIVE); SPECIFIC GRAVITY 1.025 (1.005-1.020); UROBILINOGEN NORMAL (NORMAL)
[2019-10-07 09:42] LABS: BACTERIA FEW /hpf (NEGATIVE); EPITHELIAL CELLS OCC /hpf (0-5); RED CELLS - URINE NONE SEEN /hpf (0-5); WHITE CELLS - URINE OCC /hpf (NEGATIVE)
--- NOTE | 2019-10-07 12:45 | NUR ---
PRE-OPS GIVEN. TO ASSET PROTECTION REPRESENTATIVE BY BED.
--- NOTE | 2019-10-07 13:28 | NUR ---
BACK FROM CATHLAB. VS WNL. RIGHT GROIN STABLE WITHOUT BLEEDING OR HEMAOTMA NOTED. WILL MONITOR.
--- NOTE | 2019-10-07 15:15 | NUR ---
BED REST UP. GROIN STABLE.
--- NOTE | 2019-10-07 19:12 | NUR ---
RECEIVED BEDSIDE REPORT. PATIENT IS ALERT AND ORIENTED, RESTING COMFORTABLY IN BED. RESPIRATIONS ARE EVEN AND UNLABORED. NO S/S OF DISTRESS. NO C/O PAIN. PATIENT IS WAITING FOR HIS RIDE HOME.
--- NOTE | 2019-10-07 21:48 | NUR ---
PATIENT RIDE HOME ARRIVED. PATIENTS IV AND TELEMETRY WERE REMOVED BY DAYSHIFT. PATIENT WAS ESCORTED OF UNIT BY SHOE DYER VIA WHEELCHAIR.
--- NOTE | 2019-10-08 09:21 | MORECARE ---
CASE MANAGEMENT DISCHARGE SUMMARY PATIENT: LYNDA MEEHAN UNIT: [id number] ADM DATE: 10/06/19 AGE: 63 : 59 SEX: M ROOM/BED: D.2115 AUTHOR: FAUZIA THOMAS PHYSICIAN: REFERRING PHYSICIAN: KENDRICK GILL MD DATE OF SERVICE: 10/08/19 Discharge Plan Patient Name: [facility]YNDA [facility]EEHAN [facility] [facility] 1955 Planned Disposition: Home Anticipated Discharge Date: 10/07/19 Discharge Date: 10/07/2019 Expected LOS: 1 Initial Reviewer: [email or web address] Initial Review Date: 10/08/2019 Generated: 10/08/19 10:20 am Coverage Notice Reviewer: [email or web address] Shekhar Ingram Notice Issued Date-Time: 10/06/2019 18:19 Notice Type: Medicare Outpatient Observation Notice Notice Delivered To: Patient Relationship to Patient: Self Rn Infusion Name: Lynda Meehan Delivery Method: HAND - Hand Delivered Marylin Days: Prior Verbal Notification: Recipient Understood Notice: Yes Recipient Signature: Yes Med Rec Note Co-signed by Attending: Coverage Notice Comment: FERRERA signed by patient. Original given to patient and one placed on the chart. Patient Name: LYNDA MEEHAN Page [phone] at 0921 All edits/amendments must be made on the electronic document DICTATION DATE: 10/08/19919 CHIEF MEDICAL DIRECTOR: CHET 10/08/19919 RPT#: [id number] DC DATE:10/07/19 STATUS: DIS IN [facility] [address] [place] [address] END OF REPORT
== END 2019-10-07 21:49 | disposition home or self-care (01) ==
LOC: D.ER 12:39 → D.M2 17:14 → OBSVTIME 17:14 → D.SDCHOLD 10-07 15:39 → D.M2 10-07 15:39
PROVIDERS: Family Medicine; Internal Medicine Interventional Cardiology; ADMIT Emergency Medicine; ATTEND Emergency Medicine
DX: I25.110 Atherosclerotic heart disease of native coronary artery with unstable angina pectoris (principal); E11.65 Type 2 diabetes mellitus with hyperglycemia; I10 Essential (primary) hypertension; J44.9 Chronic obstructive pulmonary disease, unspecified; J45.909 Unspecified asthma, uncomplicated; F17.203 Nicotine dependence unspecified, with withdrawal; E87.1 Hypo-osmolality and hyponatremia; H54.40 Blindness, one eye, unspecified eye; D50.9 Iron deficiency anemia, unspecified; G89.29 Other chronic pain; I24.9 Acute ischemic heart disease, unspecified

== ENCOUNTER 2020-02-18 19:04 | Inpatient (IN) | payer MEDICARE, MEDICAID ==
[~2020-02-18] VITALS: Ht 177.8 cm; Wt 116.6 kg
[~2020-02-18 19:04] MED LIST changes: +COZAAR50 MG PO
[2020-02-18 19:49] LABS: HEMOGLOBIN 12.4 g/dL (13.5-17.5); LYMPHOCYTES 15.6 % (15-50); MCH 25.5 pg (26.0-34.0); MCV 82.1 fL (80.0-100.0); NEUTROPHILS 76.5 % (40-80); PLATELET COUNT 274 10x3/uL (130-400); RBC 4.87 10x6/uL (4.20-6.10); RDW 14.2 % (11.5-14.5); WBC 9.3 10x3/uL (4.8-10.8)
[2020-02-18 19:56] LABS: CALC OSMOLALITY 277 mosm/kg (275-300); CALCIUM 8.7 mg/dL (8.5-10.1); CARBON DIOXIDE 29.5 mmol/L (21.0-32.0); CHLORIDE - SERUM 103 mmol/L (98-107); CREATININE - SERUM 1.2 mg/dL (0.6-1.3); GLUCOSE 88 mg/dL (74-106); POTASSIUM - SERUM 3.8 mmol/L (3.5-5.1); SODIUM 139 mmol/L (136-145); UREA NITROGEN 15 mg/dL (7-18); eGFR NON AFRICAN AMERICAN 65 mL/min (90-120)
[2020-02-18 19:58] LABS: APTT 29.4 SECONDS (22.8-39.4); INR 1.02 (0.85-1.17); PROTIME 13.3 SECONDS (11.6-15.0)
[2020-02-18 20:12] LABS: ALBUMIN 3.5 g/dL (3.4-5.0); ALKALINE PHOSPHATASE 62 U/L (30-120); ALT (SGPT) 29 U/L (10-68); BILIRUBIN - TOTAL 0.22 mg/dL (0.2-1.3); CREATINE KINASE 297 UL (21-232); MAGNESIUM - SERUM 1.8 mg/dL (1.8-2.4)
[2020-02-18 20:14] LABS: TROPONIN-I < 0.017 ng/mL (0.000-0.060)
[2020-02-18 20:37] VITALS: BP 131/68
[2020-02-18 21:08] VITALS: BP 144/60
[2020-02-18 22:04] VITALS: BP 121/62
[2020-02-18 22:51] LABS: CKMB 4.4 U/L (0.0-3.6); CREATINE KINASE 271 UL (21-232); TROPONIN-I < 0.017 ng/mL (0.000-0.060)
[2020-02-19 00:15] VITALS: BMI 38.1
--- NOTE | 2020-02-19 01:00 | NUR ---
PT IS ALERT AND ORIENTED X4. USES CANE TO AMBULATE BUT IT IS CURRENTLY AT HOME. PT ALSO HAS DENTURES THAT ARE CURRENTLY AT HOME. PT REPORTS A HISTORY OF ASTHMA BUT SAYS HE NO LONGER TAKES ANY MEDICATIONS. FAINT WHEEZES HEARD ON EXPIRATION. PT REPORTS HAVING A TITANIUM PLATE PLACED IN LOWER BACK AND NECK.
[2020-02-19] MEDS ORDERED: PROTONIX40 MG PO (01:11)
[2020-02-19] MEDS ORDERED: GLUCOTROL 5 MG T5 MG PO (01:11)
[2020-02-19 04:00] VITALS: BP 125/81
[2020-02-19 07:11] LABS: HEMATOCRIT 39.2 % (42.0-54.0); HEMOGLOBIN 12.3 g/dL (13.5-17.5); LYMPHOCYTES 20.6 % (15-50); MCH 25.8 pg (26.0-34.0); MCHC 31.4 g/dL (31.0-37.0); MCV 82.4 fL (80.0-100.0); MEAN PLATELET VOLUME 8.4 fL (7.4-10.4); NEUTROPHILS 71.9 % (40-80); PLATELET COUNT 262 10x3/uL (130-400); RBC 4.76 10x6/uL (4.20-6.10); RDW 14.1 % (11.5-14.5); WBC 7.1 10x3/uL (4.8-10.8)
[2020-02-19 07:38] LABS: ALBUMIN 3.2 g/dL (3.4-5.0); ALKALINE PHOSPHATASE 59 U/L (30-120); ALT (SGPT) 27 U/L (10-68); BILIRUBIN - TOTAL 0.31 mg/dL (0.2-1.3); CALC OSMOLALITY 277 mosm/kg (275-300); CALCIUM 8.1 mg/dL (8.5-10.1); CARBON DIOXIDE 29.6 mmol/L (21.0-32.0); CHLORIDE - SERUM 104 mmol/L (98-107); CKMB 3.5 U/L (0.0-3.6); CREATINE KINASE 191 UL (21-232); GLUCOSE 94 mg/dL (74-106); POTASSIUM - SERUM 3.7 mmol/L (3.5-5.1); PROTEIN - SERUM 6.5 g/dL (6.4-8.2); SODIUM 139 mmol/L (136-145); UREA NITROGEN 13 mg/dL (7-18); eGFR NON AFRICAN AMERICAN 80 mL/min (90-120)
[2020-02-19 07:40] LABS: TROPONIN-I < 0.017 ng/mL (0.000-0.060)
[2020-02-19 11:15] VITALS: BP 136/77
[2020-02-19 11:34] VITALS: Ht 177.8 cm; Wt 116.6 kg
[2020-02-19 11:59] LABS: CREATINE KINASE 166 UL (21-232)
[2020-02-19 12:05] LABS: TROPONIN-I < 0.017 ng/mL (0.000-0.060)
--- NOTE | 2020-02-19 16:09 | MORECARE ---
CASE MANAGEMENT DISCHARGE SUMMARY PATIENT: LYNDA MEEHAN UNIT: [id number] ADM DATE: 02/18/20 AGE: 64 : 59 SEX: M ROOM/BED: D.3999 AUTHOR: FAUZIA THOMAS PHYSICIAN: REFERRING PHYSICIAN: MAYA BRADLEY MD DATE OF SERVICE: 02/19/20 Discharge Plan Patient Name: LYNDA MEEHAN [facility] [facility] 1955 Planned Disposition: Home or Self Care Anticipated Discharge Date: 02/19/20 Discharge Date: Expected LOS: 1 Initial Reviewer: [email or web address] Initial Review Date: 02/19/2020 Generated: 02/19/20 5:08 pm Comments DCP- Discharge Planning Updated by [email or web address]: Ольга Ingram on 02/19/20 3:[address] CM met with patient regarding DC needs/plans. Patient is in agreement with assessment completion. PCP: Dr. Esparza. [facility]acy[facility]. DME: [facility]onna. Emergency contact: Britney Meehan, . Steps: 3 w/rail, ramp. Patient lives independently with his and [id number]-vx-dih. Denies need for HHS, Rehab. Patient is dressed and ready to DC. Denies any DC needs at this time. Transportation: [facility]. Patient Name: LYNDA MEEHAN Page 60720 at 1609 All edits/amendments must be made on the electronic document DICTATION DATE: 02/19/201608 MEAT GRINDER: CHET 02/19/20 1609 RPT#: [id number] DC DATE: STATUS: ADM IN [facility] [address] [place] [address] END OF REPORT
--- NOTE | 2020-02-19 16:17 | MORECARE ---
CASE MANAGEMENT DISCHARGE SUMMARY PATIENT: LYNDA MEEHAN UNIT: [id number] ADM DATE: 02/18/20 AGE: 64 : 59 SEX: M ROOM/BED: D.0642 AUTHOR: MARTHADOC PHYSICIAN: REFERRING PHYSICIAN: MAYA BRDALEY MD DATE OF SERVICE: 02/19/20 Discharge Plan Patient Name: LYNDA MEEHAN Facility: [facility]:[place] : 1955 Planned Disposition: Home or Self Care Anticipated Discharge Date: 02/19/20 Discharge Date: Expected LOS: 1 Initial Reviewer: [email or web address] Initial Review Date: 02/19/2020 Generated: 02/19/20 5:16 pm Comments DCP- Discharge Planning Updated by [email or web address]: Ольга Ingram on 02/19/20 3:[address] CM met with patient regarding DC needs/plans. Patient is in agreement with assessment completion. PCP: Dr. Esparza. Pharmacy[facility]. DME: [facility]. Emergency contact: Britney Meehan, . Steps: 3 w/rail, ramp. Patient lives independently with his and jjlizy-[id number]-fjb. Denies need for HHS, Rehab. Patient is dressed and ready to DC. Denies any DC needs at this time. Transportation: [facility]. DCPIA - Discharge Planning Initial Assessment Updated by [email or web address]: Ольга Ingram on 02/19/20 4:10 pm * Is the patient Alert and Oriented? Yes * How many steps to enter\exit or inside your home? 3/rail, ra * PCP Dr. Esparza * Pharmacy [facility] * Preadmission Environment Home with Family * ADLs Independent * Equipment Cane * List name and contact numbers for known caregivers / representatives who currently or will assist patient after discharge: Britney Meehan ) [phone] * Verbal permission to speak to the caregivers and representatives has been obtained from the patient. N/A * Community resources currently utilized None * Additional services required to return to the preadmission environment? No * Can the patient safely return to the preadmission environment? Yes * Has this patient been hospitalized within the prior 30 days at any hospital? No Patient Name: LYNDA MEEHAN Page [phone] at 1617 All edits/amendments must be made on the electronic document DICTATION DATE: 02/19/201615 STATISTICAL MACHINE MECHANIC: CHET 02/19/201615 RPT#: [id number] DC DATE: STATUS: ADM IN [facility] [address] [place] [address] END OF REPORT
--- NOTE | 2020-02-19 16:59 | NUR ---
PT DISCHARGED HOME VIA WHEELCHAIR WITH FAMILY. PIV REMOVED WITH CATHETER TIP FULLY INTACT. TELEMETRY REMOVED AND RETURNED. PT SIGNED PROPER DISCHARGE INSTRUCTIONS AND REMOVED ALL VALUABLES FROM THE ROOM.
== END 2020-02-19 17:00 | disposition home or self-care (01) | DRG 313 ==
LOC: D.ER 19:04 → D.M2 22:18
PROVIDERS: Emergency Medicine; ADMIT Family Medicine; ATTEND Family Medicine
DX: R07.89 Other chest pain (principal); K21.9 Gastro-esophageal reflux disease without esophagitis; E78.5 Hyperlipidemia, unspecified; I25.10 Atherosclerotic heart disease of native coronary artery without angina pectoris; E11.69 Type 2 diabetes mellitus with other specified complication; I50.9 Heart failure, unspecified; E66.9 Obesity, unspecified; Z86.73 Personal history of transient ischemic attack (TIA), and cerebral infarction without residual deficits; Z68.38 Body mass index [BMI] 38.0-38.9, adult; Z72.0 Tobacco use

== ENCOUNTER 2020-10-09 17:25 | Inpatient (IN) | payer MEDICARE, MEDICAID ==
[~2020-10-09] VITALS: Ht 177.8 cm; Wt 115.7 kg
--- NOTE | ~2020-10-09 | HEMODYNAMI ---
PATIENT:LYNDA KAHN MEDICAL RECORD: [id number] : 59 [facility] ADMISSION DATE: 10/09/20 Generatedon:110:15 Patient name: LYNDA KAHN Patient #: [id number] SSN: [id number] : 1955 Date of study: 10/10/2020 Page: Of Hemodynamic Procedure Report Patient Data Patient Demographics Procedure consent was obtained First Name: LYNDA Gender: Male Last Name: FEMI : 1955 [facility] Initial: L Age: 64 year(s) Patient #: [id number] Race: SSN: [id number] Additional ID: [id number] Contact details [address]: [address] [place] [address] State: [place] City: [place] Zip code: [address] Past Medical History Allergies Allergen Reaction Date Comments Reported Other allergy 12/20/2016 Ibuprofen Other allergy 12/21/2016 ibuprofen Other allergy 06/03/2017 ibuprofen, diclofenac Other allergy 06/04/2017 ibuprofen. diclofenac Other allergy 02/24/2018 ibuprofen, sweet potato Other allergy 04/27/2018 ibuprofen, sweet potato. Other allergy 08/25/2018 IBUPROFEN, SWEET POTATO Other allergy 10/10/2020 ibuprofen, sweet potato Admission Admission Data Admission Date: 10/09/2020 Admission Time: 22:13 Arrival Date: 10/10/2020 Arrival Time: 0:00 Admit Source: Other Insurance Payor: Medicare Room #: D.2206 [facility] #: [id number] Height (in.): 70 BSA: 2.32 (m2) Height (cm.): 177.8 BMI: 36.66 (kg/m2) Weight (lbs.): 255.52 Weight (kg.): 115.9 Lab Results Lab Result Date: 10/10/2020 Lab Result Time: 0:00 Biochemistry Name Units Result Min Max BUN mg/dl 17 --(---*)-- 7 18 CK-MB ng/ml 1.3 --(-*--)-- 0 3.6 Creatinine mg/dl 1 --(--*-)-- 0.6 1.3 eGFR ml/min 79.39220 *-(----)-- 90 120 NONAFRICAN Troponin l ng/ml 0.017 --(-*--)-- 0 0.06 CBC Name Units Result Min Max Hematocrit % 43.1 --(*---)-- 42 54 Hemoglobin g/dl 13.6 --(*---)-- 13.5 17.5 Procedure Procedure Types Cath Procedure Diagnostic Procedure C [facility] w/Coronaries Sedation Charges Moderate Sedation 10-24 minutes Procedure Description Procedure Date Procedure Date: 10/10/2020 Procedure Start Time: 10:01 Procedure End Time: 10:13 Procedure Staff Name Function Antonio Russo MD Performing Physician Babar Morris RN Nurse Nereyda Early RT Scrub Kassandra Spivey RT Monitor Procedure Data Cath Procedure Fluoroscopy Diagnostic fluoroscopy Total fluoroscopy Time: 1.3 time: 1.3 min min Diagnostic fluoroscopy Total fluoroscopy dose: 672 dose: 672 mGy mGy Contrast Material Contrast Material Type Amount (ml) Isovue 300 65 Entry Location Entry Primary Successful Side Size Upsize Upsize Entry Closure Succes sful Closure Location (Fr) 1 (Fr) 2 (Fr) Remarks Device Remarks Femoral Right 5 Fr Exoseal artery Estimated blood loss: 5 ml Diagnostic catheters Device Type Used For End Catheter Placement MULTIPACK JL 4.0 5Fr Procedure catheter MULTIPACK 3DRC 5Fr Procedure catheter MULTIPACK Pigtail 5 Fr Procedure catheter Procedure Complications No complications Procedure Medications Medication Administration Route Dosage 0.9% NaCl I.V. 100 ml/hr Oxygen etCO2 Nasal cannula 2 l/min Heparin Flush Bag added to field 2 bags (1000units/500ml NS) Lidocaine 2% added to field 20 Versed I.V. 2 mg Fentanyl I.V. 100 mcg Versed I.V. 1 mg Hemodynamics Rest BSA: 2.32 (m2) HGB: 13.6 (g/dl) O2 Consumption: Estimated: 268.43 (ml/min) O2 Co nsumption indexed: Estimated:115.7 (ml/min/m) Heart Rate: 66 (bpm) Pressure Samples Time Site Value (mmHg) Purpose Heart Use Rate(bpm) 10:08 LV 136/-2,5 Snapshot 70 10:08 LV 127/3,7 Snapshot 71 10:08 AO 122/67(88) Pullback 68 10:08 LV 123/0,1 Pullback 68 Gradients Valve Time Site 1 Site 2 Mean SEP/DFP Peak To Heart Use (mmHg) (sec/min) Peak Rate (mmHg) (bpm) Aortic 10:08 LV AO 20 18 1 68 123/0,1 122/67(88) Calculations Valve P-P Mean Valve Index Valve Source Name Gradient Area Flow (cm2) Aortic 1 20 1 20 Snapshots Pre Cath Intra NCS Post Cath Vital Signs Time Heart Resp SPO2 etCO2 NIBP (mmHg) Rhythm Pain Sedation Rate (ipm) (%) (mmHg) Status Level (bpm) 9:29:18 67 19 97 0 165/81(122) NSR 0 (11) 10(A) , No pain 9:33:44 65 15 99 38.8 173/91(121) NSR 0 (11) 10(A) , No pain 9:38:11 67 17 98 42.7 160/89(119) NSR 0 (11) 10(A) , No pain 9:42:39 65 16 99 41.1 158/89(111) NSR 0 (11) 10(A) , No pain 9:47:07 65 17 99 42.7 152/83(115) NSR 0 (11) 10(A) , No pain 9:51:29 70 13 98 23.6 138/87(124) NSR 0 (11) 10(A) , No pain 9:55:52 66 18 99 40.4 151/84(121) NSR 0 (11) 10(A) , No pain 10:00:14 64 22 99 38.1 145/82(113) NSR 0 (11) 10(A) , No pain 10:04:38 68 13 99 41.1 160/86(117) NSR 0 (11) 10(A) , No pain 10:09:02 70 14 99 41.9 161/91(107) NSR 0 (11) 10(A) , No pain 10:13:21 68 20 98 41.9 139/91(111) NSR 0 (11) 10(A) , No pain Medications Time Medication Route Dose Verified Delivered Reason Notes Eff ectiveness by by 9:34:12 0.9% NaCl I.V. 100 Babar Babar Per ml/hr Arturo Morris physician RN RN 9:34:22 Oxygen etCO2 2 Babar Babar for low 02 Nasal l/min Lorigan Lorigan sats cannula RN RN 9:34:33 Heparin Flush added 2 Babar Babar used for Bag to bags Lorigan Lorigan procedure (1000units/500ml field RN RN NS) 9:34:43 Lidocaine 2% added 20ml Babar Babar for local to vial Lorigan Lorigan anesthetic field RN RN 9:57:07 Versed I.V. 2 mg Babar Babar for Lorigan Lorigan sedation RN RN 9:57:16 Fentanyl I.V. 100 Babar Babar for mcg Lorigan Lorigan sedation RN RN 10:02:32 Versed I.V. 1 mg Babar Babar for Lorigan Lorigan sedation RN mill and coal transport operator Log Time Note 8:42:13 Informed consent obtained and on chart 8:42:34 Diagnostic Cath Status : Urgent 8:43:22 Lab Result : CK-MB 1.3 ng/ml 8:43:22 Lab Result : Creatinine 1 mg/dl 8:43:22 Lab Result : BUN 17 mg/dl 8:43:22 Lab Result : eGFR NONAFRICAN 79.91826 ml/min 8:43:22 Lab Result : Hemoglobin 13.6 g/dl 8:43:22 Lab Result : Troponin l 0.017 ng/ml 8:43:22 Lab Result : Hematocrit 43.1 % 8:43:26 Arrival Date: 10/10/2020 12:00:00 AM 8:43:27 Admit Source: Other 8:43:33 Insurance Payor : Medicare 8:43:36 Patient Height : 70 inches 8:43:40 Patient Weight : 255.52 lbs 8:44:17 Patient allergic to Other allergyibuprofen, sweet potato 8:47:54 ACC Patient presents with Unstable Angina CCS Anginal Class 2--Slight limitation of ordinary activity. 8:47:58 Procedure Status Urgent Heart Cath (IP). 8:48:00 Time tracking: Regular hours (M-F 7:00 - 5:00) 8:48:06 Plan of Care:Hemodynamics will remain stable., Cardiac rhythm will remain stable., Comfort level will be maintained., Respiratory function will remain adequate., Patient/ family verbilizes understanding of procedure., Procedure tolerated without complication., Recovers from procedure without complications.. 8:48:11 Pre-procedure instructions explained to patient. 8:48:11 Pre-op teaching completed and patient verbalized understanding. 8:48:13 Family unavailable. 8:48:15 Patient NPO since Midnight. 8:48:19 Is the patient allergic to Iodine/contrast media? No. 8:48:24 Lab results completed and on chart. 8:48:27 Stress Test: no; N/A ? 8:50:36 Risk of Mortality: 0.2 8:50:39 Risk of blood transfusion: 0.1 8:50:42 Risk of ANAT: 0.6 8:50:57 Alarms reviewed by R. N. 8:50:57 Sharps counted by scrub and verified by R.N. 8:51:18 Use device set Femoral Dx 8:55:31 ACIST Syringe (83545) opened to sterile field. 8:55:32 Bag Decanter (2002S) opened to sterile field. 8:55:33 Medline Cath Pack ([id number]) opened to sterile field. 8:55:34 ACIST Hand Control (67574) opened to sterile field. 8:55:35 ACIST Manifold (47638) opened to sterile field. 8:55:36 DIAGNOSTIC Multipack 5Fr catheter set ([id number]) opened to sterile field. 8:55:38 SHEATH 5FR [place] (VJJ328) opened to sterile field. 8:55:39 RAFFIALD Guide Wire (618-094) opened to sterile field. 9:06:46 Babar Morris RN sent for patient. Start room use. 9:26:35 Patient received from Med/Surg to CCL 2 Alert and oriented. Tansferred to table in Supine position. 9:26:36 Warm blankets applied, and precious hugger turned on for patient comfort. 9:26:37 Correct patient and procedure confirmed by team. 9:26:37 ECG and BP/O2 sat monitors applied to patient. 9:26:45 H&P Date Dictated: 10/10/2020 Within 30 days and on chart.. 9:26:52 Was the patient premedicated? Yes 9:27:01 Is patient on blood thinner?Yes 9:27:04 ACC The patient was administered the following blood thiners within the last 24 hours: ACCPlavix 9:27:06 Patient diabetic? Yes. 9:27:08 If diabetic: On Metformin? Yes 9:27:11 If on Metformin: Last Dose? 10/09/2020 9:27:14 ----Pre-sedation anethsthesia assessment.---- 9:27:16 Previous problem with sedation/anesthesia? No ? 9:27:17 Snore? Yes 9:27:19 Sleep apnea? Unknown 9:27:20 Deviated septum? No 9:27:21 Opens mouth fully? Yes 9:27:22 Sticks out tongue? Yes 9:27:27 Airway obstruction? Yes ? 9:27:36 Airway obstruction? Yes asthma, chf 9:27:41 Dentures? No ? 9:27:46 Patient pain scale 0/10 ?. 9:27:50 IV patent on arrival in left antecubital with 0.9% NaCl at [facility]. 9:27:55 Right groin area was prepped with chlora-prep and draped in sterile fashion 9:27:59 Vital chart was started 9:28:00 Full Disclosure recording started 9:28:02 Baseline sample Acquired. 9:28:05 Rhythm: sinus rhythm 9:33:37 Tegaderm 4 x 4 (1626W) opened to sterile field. 9:34:12 0.9% NaCl 100 ml/hr I.V. was administered by Babar Morris RN; Per physician; Verbal order read back and verified. 9:34:22 Oxygen 2 l/min etCO2 Nasal cannula was administered by Babar Morris RN; for low 02 sats; Verbal order read back and verified. 9:34:33 Heparin Flush Bag (1000units/500ml NS) 2 bags added to field was administered by Babar Morris RN; used for procedure; Verbal order read back and verified. 9:34:43 Lidocaine 2% 20ml vial added to field was administered by Babar Morris RN; for local anesthetic; Verbal order read back and verified. :55:27 --------ALL STOP TIME OUT------ ::27 Final Timeout: patient, procedure, and site verified with staff and physician. All members of the team are in agreement. 9:55:32 Right groin site verified by team. 9:55:39 Fire Safety Assessment: A--An alcohol-based skin anteseptic being used preoperatively., C--Open oxygen or nitrous oxide is being used., D--An ESU, laser, or fiber-optic light is being used. 9:55:42 Physical assessment completed. ASA score P 2 - A patient with mild systemic disease as per Antonio Russo MD. 9:55:46 2) 60-89 Mildly reduced kidney function, and other findings (as for stage 1) point to kidney disease. 9:55:49 Maximum allowable contrast dose (3.7 X eGFR X 0.75)222 ml. 9:55:52 Sedation plan: IV Moderate Sedation Medication:Versed, Fentanyl 9:57:07 Versed 2 mg I.V. was administered by Babar Morris RN; for sedation; Verbal order read back and verified. 9:57:16 Fentanyl 100 mcg I.V. was administered by Babar Morris RN; for sedation; Verbal order read back and verified. 10:01:11 Procedure started. 10:01:19 Zero performed for pressure channel P1 10:01:31 Zero performed for pressure channel P1 10:01:37 Local anesthetic to right femoral artery with Lidocaine 2% by Antonio Russo MD.INITIAL ACCESS ONLY 10:01:57 Zero performed for pressure channel P1 10:02:03 Zero performed for pressure channel P1 10:02:08 Zero performed for pressure channel P1 10:02:32 Versed 1 mg I.V. was administered by Babar Morris RN; for sedation; Verbal order read back and verified. 10:03:41 A 5 Fr sheath was inserted into the Right Femoral artery 10:05:35 A MULTIPACK JL 4.0 5Fr catheter was advanced over the wire and used for Procedure. 10:05:38 LCA angiography performed. 10:05:39 Catheter removed. 10:05:46 A MULTIPACK 3DRC 5Fr catheter was advanced over the wire and used for Procedure. 10:07:09 RCA angiography performed. 10:07:10 Catheter removed. 10:07:32 A MULTIPACK Pigtail 5 Fr catheter was advanced over the wire and used for Procedure. 10:07:44 LV gram done using BROWN 10:07:46 Injector settings: Ml/sec: 10, Volume: 20, 10:08:27 LV hemodynamics recorded. 10:08:36 EF : 55 % 10:08:36 Catheter removed. 10:08:53 EXOSEAL 5Fr (EX500) opened to sterile field. 10:09:30 Sheath removed intact; hemostasis achieved with Exoseal to the Right Femoral artery. 10:10:00 Procedure ended.(Physican Out) 10:10:30 Fluoroscopy time 01.30 minutes. 10:10:40 Fluoroscopy dose: 672 mGy 10:10:40 Flurop Dose total: 672 10:10:46 Dose Area Product 20194 mGy/cm. 10:10:50 Contrast amount:Isovue 300 65ml. 10:10:52 Maximum allowable dose exceeded? No. 10:10:53 Sharps counted by scrub and verified by R.N. 10:11:03 Post-op/insertion site Right Femoral artery dressed using a 4 x 4 and Tegaderm. 10:11:06 Post-procedure physical assessment completed. ASA score P 2 - A patient with mild systemic disease as per Antonio Russo MD. 10:11:09 Post procedure rhythm: sinus rhythm 10:11:11 Estimated blood loss: 5 ml 10:11:12 Post procedure instruction explained to patient.Patient verbalizes understanding. 10:11:12 Patient needs reinforcement of post procedure teaching. 10:13:05 Procedure type changed to Cath procedure, Diagnostic procedure, LHC, C w/Coronaries, Sedation Charges, Moderate Sedation 10-24 minutes 10:13:21 Procedure and supply charges have been captured, reviewed, submitted and are correct. 10:13:23 Procedure Complication : No complications 10:13:25 Vital chart was stopped 10:13:26 [facility] Findings: mild to moderate CAD (<70%) 10:13:28 Operative report dictated upon procedure completion. 10:13:28 See physician's report for complete and final results. 10:13:29 Report given to Pre/Post Procedure Room. 10:13:37 Patient transfered to Pre/Post Procedure Room with Bed. 10:13:39 Procedure ended. 10:13:39 Full Disclosure recording stopped 10:13:44 End room use (Document Last) 10:14:26 End room use (Document Last) 10:14:56 End room use (Document Last) Device Usage Item Name Manufacture Quantity Catalog Hospital Part Current Minimal L ot# / Number Charge Number Stock Stock Serial# Code ACIST Acist 1 [id number] [id number] [id number] 20 Syringe Medical (50965) Systems Inc Bag Microtek 1 2001S 342868 17221 338719 5 Decanter Medical Inc. () Medline Medline 1 [id number] 827274 35082 714900 5 Cath Pack ([id number]) ACIST Hand Acist 1 62703 619357 926882 913052 5 Control Medical (68147) Systems Inc ACIST Acist 1 68332 165353 594060 359365 5 Manifold Medical (62513) Systems Inc DIAGNOSTIC Cardinal 1 HE2599 354892 98381 142375 30 Multipack Health 5Fr catheter set (RC7589) SHEATH 5FR Terumo 1 NRJ067 584070 080018 939022 5 [place] (YXY018) EMERALD Cardinal 1 502-455 050172 101768 781568 5 Guide Wire [facility] (502-455) Tegaderm 4 3M 1 1626W 763546 530586 378342 5 x 4 (1626W) MULTIPACK Cardinal 1 443749 5 JL 4.0 5Fr Health catheter MULTIPACK Cardinal 1 334931 5 3DRC 5Fr Health catheter MULTIPACK Cardinal 1 586662 5 Pigtail 5 Health Fr catheter EXOSEAL 5Fr Cardinal 1 EX500 301485 407856 603886 10 (EX500) Health Signature Audit [place] Stage Time Signature Unsigned Intra-Procedure 10/10/2020 Kassandra Spivey 10:14:26 AM RT(R) Intra-Procedure 10/10/2020 Babar 10:14:56 AM Arturo BOLAÑOS Intra-Procedure 10/10/2020 Antonio Larry 10:15:14 AM Julio César NAPIER Signatures Performing Physician : Signature : Antonio Russo MD Date : Time : Nurse : Babar Morris Signature : RN Date : Time : Monitor : Kassandra Spivey Signature : RT Date : Time : [address] [place] [address]
[~2020-10-09 17:25] MED LIST changes: +GLUCOTROL 5 MG T5 MG PO
[2020-10-09 17:55] LABS: BASOPHILS 0.3 % (0-2); EOSINOPHILS 3.1 % (0-7); HEMATOCRIT 41.7 % (42.0-54.0); HEMOGLOBIN 13.2 g/dL (13.5-17.5); IMMATURE GRANULOCYTES 0.4 % (0-5); LYMPHOCYTES 14.9 % (15-50); MCHC 31.7 g/dL (31.0-37.0); MCV 82.2 fL (80.0-100.0); MEAN PLATELET VOLUME 9.1 fL (7.4-10.4); MONOCYTES 6.3 % (2-11); NEUTROPHIL ABS# 8.07 10x3/uL (1.78-5.38); PLATELET COUNT 277 10x3/uL (130-400); RBC 5.07 10x6/uL (4.20-6.10); RDW 14.8 % (11.5-14.5); WBC 10.8 10x3/uL (4.8-10.8)
[2020-10-09 18:17] LABS: CALC OSMOLALITY 273 mosm/kg (275-300); CALCIUM 9.1 mg/dL (8.5-10.1); CARBON DIOXIDE 28.6 mmol/L (21.0-32.0); CHLORIDE - SERUM 96 mmol/L (98-107); CREATININE - SERUM 1.1 mg/dL (0.6-1.3); POTASSIUM - SERUM 3.7 mmol/L (3.5-5.1); SODIUM 132 mmol/L (136-145); UREA NITROGEN 17 mg/dL (7-18); eGFR NON AFRICAN AMERICAN 72 mL/min (90-120)
[2020-10-09 18:20] LABS: GLUCOSE 224 mg/dL (74-106)
[2020-10-09 18:26] LABS: APTT 37.8 SECONDS (22.8-39.4); INR 1.23 (0.85-1.17); PROTIME 14.4 SECONDS (11.6-15.0)
[2020-10-09 18:33] LABS: ALBUMIN 3.8 g/dL (3.4-5.0); ALKALINE PHOSPHATASE 73 U/L (30-120); ALT (SGPT) 38 U/L (10-68); BILIRUBIN - TOTAL 0.26 mg/dL (0.2-1.3); CKMB 1.8 U/L (0.0-3.6); CREATINE KINASE 117 UL (21-232); PROTEIN - SERUM 7.3 g/dL (6.4-8.2); THYROID STIMULATING HORMONE 0.91 uIU/mL (0.36-3.74)
--- NOTE | 2020-10-09 18:33 | NUR ---
TO MRI VIA STRETCHER. ATTEMPTED TO CALL BACK PATIENT'S DESIZING PAD OPERATOR AND . MESSAGE LEFT.
[2020-10-09 18:38] LABS: TROPONIN-I < 0.017 ng/mL (0.000-0.060)
--- NOTE | 2020-10-09 18:39 | NUR ---
AR SAVES DONE ON PT. NEUROLOGIST DR. ROSE ASSIST, STROKE SCALE A 2, DR. ROSE SUGGEST NO ACTIVASE AT THIS TIME, PT JUST TO BE MONITORED.
--- NOTE | 2020-10-09 18:53 | NUR ---
UPDATE GIVEN TO VIA TELEPHONE.
--- NOTE | 2020-10-09 18:54 | NUR ---
PATIENT NOTE AT 1833 ENTERED BY Colby MATTHEW RN. NOT DAGOBERTO JONAS RN.
[2020-10-09 19:00] VITALS: BP 93/42
[2020-10-09 20:00] VITALS: BP 110/65
[2020-10-09 21:00] VITALS: BP 111/58
[2020-10-09 21:46] LABS: BILIRUBIN NEGATIVE (NEGATIVE); KETONE NEGATIVE (NEGATIVE); NITRITE NEGATIVE (NEGATIVE); UROBILINOGEN NORMAL mg/dL (< 2)
[2020-10-09 21:55] LABS: UDS - AMPHET NEGATIVE QUAL (NEGATIVE); UDS - BARB NEGATIVE QUAL (NEGATIVE); UDS - BENZO NEGATIVE QUAL (NEGATIVE); UDS - COCAINE NEGATIVE QUAL (NEGATIVE); UDS - OPIATE NEGATIVE QUAL (NEGATIVE); UDS - PCP NEGATIVE QUAL (NEGATIVE); UDS - THC NEGATIVE QUAL (NEGATIVE)
[2020-10-09 22:00] VITALS: BP 111/60
[2020-10-09 23:39] VITALS: BMI 36.6
[2020-10-10] VITALS (10 sets, daily range): BP systolic 125–146; BP diastolic 61–85; Ht 177.8 cm; Wt 115.7 kg
[2020-10-10 01:28] LABS: CREATINE KINASE 100 UL (21-232); TROPONIN-I < 0.017 ng/mL (0.000-0.060)
[2020-10-10 06:19] LABS: BASOPHILS 0.2 % (0-2); EOSINOPHILS 3.8 % (0-7); HEMATOCRIT 43.1 % (42.0-54.0); HEMOGLOBIN 13.6 g/dL (13.5-17.5); IMMATURE GRANULOCYTES 0.3 % (0-5); LYMPHOCYTE ABS# 1.61 10x3/uL (1.32-3.57); LYMPHOCYTES 17.9 % (15-50); MCH 25.9 pg (26.0-34.0); MCHC 31.6 g/dL (31.0-37.0); MCV 82.1 fL (80.0-100.0); MEAN PLATELET VOLUME 9.1 fL (7.4-10.4); MONOCYTES 7.4 % (2-11); NEUTROPHIL ABS# 6.34 10x3/uL (1.78-5.38); NEUTROPHILS 70.4 % (40-80); PLATELET COUNT 263 10x3/uL (130-400); RBC 5.25 10x6/uL (4.20-6.10); RDW 14.9 % (11.5-14.5)
[2020-10-10 06:47] LABS: ALBUMIN 3.6 g/dL (3.4-5.0); ALKALINE PHOSPHATASE 69 U/L (30-120); ALT (SGPT) 34 U/L (10-68); BILIRUBIN - TOTAL 0.41 mg/dL (0.2-1.3); CALCIUM 8.8 mg/dL (8.5-10.1); CARBON DIOXIDE 29.2 mmol/L (21.0-32.0); CHLORIDE - SERUM 99 mmol/L (98-107); CKMB 1.3 U/L (0.0-3.6); CREATINE KINASE 83 UL (21-232); MAGNESIUM - SERUM 2.2 mg/dL (1.8-2.4); PHOSPHOROUS 4.7 mg/dL (2.5-4.9); POTASSIUM - SERUM 3.6 mmol/L (3.5-5.1); PRO BNP 14 pg/mL (0-125); SODIUM 133 mmol/L (136-145); UREA NITROGEN 17 mg/dL (7-18); eGFR NON AFRICAN AMERICAN 80 mL/min (90-120)
[2020-10-10 06:53] LABS: CALC OSMOLALITY 268 mosm/kg (275-300); GLUCOSE 125 mg/dL (74-106); TROPONIN-I < 0.017 ng/mL (0.000-0.060)
--- NOTE | 2020-10-10 07:36 | NUR ---
RECIEVED BEDSIDE REPORT. PATIENT IN BED SLEEPING. AROUSES TO VOICE. DENIES NEEDS AT THIS TIME. BED LOW POSITION, CALL LIGHT IN REACH. FREE FROM SIGNS OF DISTRESS. WILL CONTINUE TO MONITOR.
[2020-10-10 09:32] LABS: CHOL - HDL RATIO 3.6 ratio (2.3-4.9); LDL-HDL RATIO 1.9 ratio (1.5-3.5)
--- NOTE | 2020-10-10 12:57 | NUR ---
EKG COMPLETED. SCANNED IN TO CHART.
--- NOTE | 2020-10-10 13:41 | NUR ---
POST OP VITAL SIGNS COMPLETE. IN BED. DENIES NEEDS AT THIS TIME. BED LOW POSITION, CALL LIGHT IN REACH. WILL COTNINUE TO MONITOR.
[2020-10-10 14:06] LABS: CREATINE KINASE 78 UL (21-232)
[2020-10-10 14:13] LABS: TROPONIN-I < 0.017 ng/mL (0.000-0.060)
--- NOTE | 2020-10-10 15:31 | OP ---
PATIENT NAME: LYNDA KAHN MEDICAL RECORD: [id number] :59 LOCATION:D.MS [facility]6 ADMISSION DATE:10/09/20 SURGEON: ESTEBAN CHEEK MD DATE OF OPERATION: 10/10/2020 PROCEDURE: Left heart catheterization, selective coronary angiography, right femoral artery approach. CATHETERS: A 5-Maldivian sheath, 5/4 left and right Ghada, 5/4 pig. The procedure was well tolerated. The patient returned to tsang. Sheath removed. ExoSeal device was placed. FINDINGS: Left ventriculography in 30-degree BROWN view: Normal wall motion and normal systolic function. CORONARY ANATOMY: Left main: Left main is free of disease. LAD: Previously placed stent is widely patent. No evidence of restenosis. No progression of [place] disease. Circumflex: Medium size circumflex, free of disease. Right coronary artery: Large, dominant right. Previously placed stents are widely patent. No progression of [place] disease. IMPRESSION: Widely patent stents, no progression of [place] disease. LV function remains normal. TRANSINT:[id number] Voice Confirmation ID: [id number] DOCUMENT ID: [id number] ESTEBAN CHEEK MD at 1531 CC: [id number] DICTATION DATE: 10/10/20 1022 FIRE SPRINKLER SERVICE TECHNICIAN: 10/10/20 1128 ADM IN [place] [address] [place] [address]
--- NOTE | 2020-10-10 15:31 | CN ---
PATIENT NAME:JUNI MEEHAN MEDICAL RECORD: [id number] : [birth year] LOCATION:D.MS [facility]6 ADMIT DATE: 10/09/20 ACCOUNT: [id number] CONSULTING PHYSICIAN: ESTEBAN CHEEK MD REFERRING PHYSICIAN: DEISY JAMES MD DATE OF CONSULTATION: 10/10/2020 HISTORY OF PRESENT ILLNESS: Juni Meehan is a 64-year-old gentleman with a known history of coronary artery disease, status post intervention via Dr. Vazquez back in 2019, history of diabetes mellitus, hypertension, admitted with a questionable TIA type symptomatology. He reports may just could not sit still, some dysarthria, presented to the ER. Symptomatology is improved. He reports having chest tightness, pressure, decreased effort tolerance over the past 2-3 weeks. He reports difficulty with may be some kind of decondition and has not been exercising, although this certainly is reminiscent of his previous anginal symptomatology. We are asked to see him concerning his cardiovascular status. PAST MEDICAL HISTORY: Includes: 1. History of hypertension. 2. Hyperlipidemia. 3. Diabetes mellitus. MEDICATIONS: Plavix 75 mg p.o. every day, atorvastatin 10 mg p.o. every day, Imdur 30 every day, losartan 50 every day, aspirin 81 every day, Neurontin 600 b.i.d., primidone 100 mg at bedtime, Zoloft 50 bedtime, Lasix 20 every day, insulin per scale, Glucotrol 4 mg p.o. daily, metformin 1 gram b.i.d. SOCIAL HISTORY: . Nonsmoker and nondrinker. Easily takes care of all of his ADLs. Does try to stay physically active. No true exercise program. PHYSICAL EXAMINATION: VITAL SIGNS: Blood pressure 109/48, pulse 80 and regular. HEENT: Normocephalic, atraumatic. NECK: No JVD or bruit. HEART: Regular. II/ systolic ejection murmur. LUNGS: Good air excursion. ABDOMEN: Soft, nontender. EXTREMITIES: Pulses 2+ with no edema. DIAGNOSTIC DATA: EKG shows nonspecific ST-T changes. IMPRESSION: Accelerated acute coronary syndrome, known history of disease, multiple risk factors. PLAN: For angiography, intervention based on above. TRANSINT:[id number] Voice Confirmation ID: [id number] DOCUMENT ID: [id number] CONSULT REPORT [id number] JUNI MEEHAN,ESTEBAN Beth MD at 1531 CC: [id number] DICTATION DATE: 10/10/20840 WIRE LATHER: 10/10/20 0918 ADM IN [facility] [address] [id number]
--- NOTE | 2020-10-10 19:54 | NUR ---
REC'D CHGE OF SHIFT WALKING ROUNDS.IN BED SITTING POSITION WATCHING TV. DENIES ANY COMPAINTS AT PRESENT TIME WILL CONTINUE TO MONITOT ND FOLLOW CURRENT PLAN OF CARE.
[2020-10-11 04:44] VITALS: BP 125/68
[2020-10-11 04:54] LABS: BASOPHILS 0.3 % (0-2); EOSINOPHILS 5.2 % (0-7); HEMATOCRIT 41.1 % (42.0-54.0); IMMATURE GRANULOCYTES 0.3 % (0-5); LYMPHOCYTES 20.9 % (15-50); MCHC 31.6 g/dL (31.0-37.0); MCV 82.2 fL (80.0-100.0); MEAN PLATELET VOLUME 9.4 fL (7.4-10.4); MONOCYTES 8.1 % (2-11); NEUTROPHIL ABS# 5.01 10x3/uL (1.78-5.38); NEUTROPHILS 65.2 % (40-80); PLATELET COUNT 238 10x3/uL (130-400); RDW 14.9 % (11.5-14.5); WBC 7.7 10x3/uL (4.8-10.8)
[2020-10-11 05:15] LABS: ANION GAP 9.9 mmol/L (8-16); CALCIUM 8.7 mg/dL (8.5-10.1); CARBON DIOXIDE 28.9 mmol/L (21.0-32.0); CREATININE - SERUM 1.1 mg/dL (0.6-1.3); MAGNESIUM - SERUM 2.2 mg/dL (1.8-2.4); POTASSIUM - SERUM 3.8 mmol/L (3.5-5.1)
--- NOTE | 2020-10-11 06:44 | NUR ---
I have reviewed this patient and I concur with the Shift Assessment completed by the Licensed Practical Nurse today this shift.
[2020-10-11 09:07] VITALS: BP 97/54
--- NOTE | 2020-10-11 10:46 | MORECARE ---
CASE MANAGEMENT DISCHARGE SUMMARY PATIENT: LYNDA KAHN UNIT: [id number] ADM DATE: 10/09/20 AGE: 64 : [birth year] SEX: M ROOM/BED: D.2206 AUTHOR: MARTHADOC PHYSICIAN: REFERRING PHYSICIAN: DEISY JAMES MD DATE OF SERVICE: 10/11/20 Discharge Plan Patient Name: LYNDA KAHN Facility: [facility]:[place] : 1955 Planned Disposition: Home or Self Care Anticipated Discharge Date: Discharge Date: Expected LOS: Initial Reviewer: [id number] Initial Review Date: 10/09/2020 Generated: 10/11/20 11:45 am Comments DCP- Discharge Planning Updated by [email or web address]: Amanda Brewer on 10/11/20 9:[address] Patient Name: LYNDA KAHN Admission Status: ER Accout number: [id number] Admission Date: 10-09-2020 : 1955 Admission Diagnosis: Attending: DEISY JAMES Current LOS: 2 Anticipated DC Date: Planned Disposition: Home or Self Care Primary Insurance: [facility] MEDICARE SOLUTIONS Discharge Planning Comments: CM met with patient to complete initial dc planning assessment. CM educated patient on the CM role and verbal consent given by patient to complete assessment. Patient lives at home with his spouse where he states he is independent with his care. At discharge patient plans to return home and feels this is a safe discharge. CM discussed availability of home health, rehab services, and medical equipment. He said he has a cane and a walker at home. His or a judaism member will be his full service vending driver home today. Patient denied known discharge needs at this time. CM will continue to follow and will assist as needed with dc plans/needs Sap Director: Amanda Brewer DCPIA - Discharge Planning Initial Assessment Updated by [email or web address]: Amanda Brewer on 10/11/20 10:42 am * Is the patient Alert and Oriented? Yes * How many steps to enter\exit or inside your home? 2/ramp * PCP JACQUELINE * Pharmacy [facility] * Preadmission Environment Home with Family * ADLs Independent * Equipment Cane Rolling Walker * List name and contact numbers for known caregivers / representatives who currently or will assist patient after discharge: CRISTIN ( ) [phone] * Verbal permission to speak to the caregivers and representatives has been obtained from the patient. N/A * Community resources currently utilized None * Additional services required to return to the preadmission environment? No * Can the patient safely return to the preadmission environment? Yes * Has this patient been hospitalized within the prior 30 days at any hospital? No Patient Name: LYNDA KAHN Page [id number] at 1046 All edits/amendments must be made on the electronic document DICTATION DATE: 10/11/20 1045 MOLDING ASSOCIATE: CHET 10/11/20 1045 RPT#: [id number] DC DATE: STATUS: ADM IN [facility] [address] [place] [address] END OF REPORT
--- NOTE | 2020-10-12 09:21 | MORECARE ---
CASE MANAGEMENT DISCHARGE SUMMARY PATIENT: LYNDA KAHN UNIT: [id number] ADM DATE: 10/09/20 AGE: 64 : 59 SEX: M ROOM/BED: D.2206 AUTHOR: MARTHADOC PHYSICIAN: REFERRING PHYSICIAN: DEISY JAMES MD DATE OF SERVICE: 10/12/20 Discharge Plan Patient Name: LYNDA KAHN Facility: [facility]:[place] : 1955 Planned Disposition: Home or Self Care Anticipated Discharge Date: Discharge Date: 10/11/2020 Expected LOS: Initial Reviewer: [email or web address] Initial Review Date: 10/09/2020 Generated: 10/12/20 10:21 am Comments DCP- Discharge Planning Updated by [email or web address]: Amanda Brewer on 10/11/20 9:[address] Patient Name: LYNDA KAHN Admission Status: ER Accout number: [id number] Admission Date: 10-09-2020 : 1955 Admission Diagnosis: Attending: DEISY JAMES Current LOS: 2 Anticipated DC Date: Planned Disposition: Home or Self Care Primary Insurance: [facility] [employer] Discharge Planning Comments: CM met with patient to complete initial dc planning assessment. CM educated patient on the CM role and verbal consent given by patient to complete assessment. Patient lives at home with his spouse where he states he is independent with his care. At discharge patient plans to return home and feels this is a safe discharge. CM discussed availability of home health, rehab services, and medical equipment. He said he has a cane and a walker at home. His or a islam member will be his ambulance driver home today. Patient denied known discharge needs at this time. CM will continue to follow and will assist as needed with dc plans/needs After School Program Coordinator: Amanda Brewer DCPIA - Discharge Planning Initial Assessment Updated by [email or web address]: Amanda Brewer on 10/11/20 10:42 am * Is the patient Alert and Oriented? Yes * How many steps to enter\exit or inside your home? 2/ramp * PCP JACQUELINE * [facility] * Preadmission Environment Home with Family * ADLs Independent * Equipment Cane Rolling Walker * List name and contact numbers for known caregivers / representatives who currently or will assist patient after discharge: CRISTIN ( ) [phone] * Verbal permission to speak to the caregivers and representatives has been obtained from the patient. N/A * Community resources currently utilized None * Additional services required to return to the preadmission environment? No * Can the patient safely return to the preadmission environment? Yes * Has this patient been hospitalized within the prior 30 days at any hospital? No Last DP export: 10/11/20 9:46 am Patient Name: LYNDA KAHN Page [id number] at 0921 All edits/amendments must be made on the electronic document DICTATION DATE: 10/12/20920 ORNAMENTAL PAINTER: CHET 10/12/20920 RPT#: [id number] DC DATE:10/11/20 STATUS: DIS IN [facility] [address] [place] [address] END OF REPORT
== END 2020-10-11 13:45 | disposition home or self-care (01) | DRG 69 ==
LOC: D.ER 17:25 → D.MS 22:13
PROVIDERS: Family Medicine; Internal Medicine Interventional Cardiology; ADMIT Emergency Medicine; ATTEND Emergency Medicine
PROC: B2151ZZ Fluoroscopy of Left Heart using Low Osmolar Contrast (ICD-10-PCS; 2020-10-10)
PROC: 4A023N7 Measurement of Cardiac Sampling and Pressure, Left Heart, Percutaneous Approach (ICD-10-PCS; 2020-10-10)
PROC: B2111ZZ Fluoroscopy of Multiple Coronary Arteries using Low Osmolar Contrast (ICD-10-PCS; principal; 2020-10-10 09:06)
DX: G45.9 Transient cerebral ischemic attack, unspecified (principal); I24.9 Acute ischemic heart disease, unspecified; E87.1 Hypo-osmolality and hyponatremia; E11.42 Type 2 diabetes mellitus with diabetic polyneuropathy; E78.5 Hyperlipidemia, unspecified; K21.9 Gastro-esophageal reflux disease without esophagitis; I11.0 Hypertensive heart disease with heart failure; I50.9 Heart failure, unspecified; I25.119 Atherosclerotic heart disease of native coronary artery with unspecified angina pectoris; H54.40 Blindness, one eye, unspecified eye

== ENCOUNTER 2020-12-04 18:58 | Inpatient (IN) | payer MEDICARE, MEDICAID ==
[~2020-12-04] VITALS: Ht 177.8 cm; Wt 124.3 kg
[~2020-12-04 18:58] MED LIST changes: +GLIPIZIDE5 MG PO; -GLUCOTROL 5 MG T5 MG PO
--- NOTE | 2020-12-04 18:58 | NUR ---
PT IMMEDIATELY TAKEN TO CT BY EMS ON ARRIVAL TO ER PER MD INSTRUCTION.
[2020-12-04 19:14] LABS: BASOPHILS 0.4 % (0-2); EOSINOPHILS 8.7 % (0-7); HEMATOCRIT 40.1 % (42.0-54.0); HEMOGLOBIN 12.6 g/dL (13.5-17.5); IMMATURE GRANULOCYTES 0.6 % (0-5); LYMPHOCYTE ABS# 1.44 10x3/uL (1.32-3.57); LYMPHOCYTES 17.3 % (15-50); MCH 25.9 pg (26.0-34.0); MCHC 31.4 g/dL (31.0-37.0); MCV 82.5 fL (80.0-100.0); MEAN PLATELET VOLUME 9.3 fL (7.4-10.4); MONOCYTES 6.5 % (2-11); NEUTROPHIL ABS# 5.54 10x3/uL (1.78-5.38); NEUTROPHILS 66.5 % (40-80); PLATELET COUNT 250 10x3/uL (130-400); RBC 4.86 10x6/uL (4.20-6.10); RDW 14.1 % (11.5-14.5); WBC 8.3 10x3/uL (4.8-10.8)
--- NOTE | 2020-12-04 19:15 | NUR ---
PT RETURNED FROM CT. DR. VEGA AT BEDSIDE.
[2020-12-04 19:26] LABS: CALC OSMOLALITY 285 mosm/kg (275-300); CALCIUM 8.5 mg/dL (8.5-10.1); CARBON DIOXIDE 27.1 mmol/L (21.0-32.0); CHLORIDE - SERUM 101 mmol/L (98-107); CREATININE - SERUM 0.9 mg/dL (0.6-1.3); POTASSIUM - SERUM 3.7 mmol/L (3.5-5.1); SODIUM 137 mmol/L (136-145); UREA NITROGEN 19 mg/dL (7-18); eGFR NON AFRICAN AMERICAN > 90 mL/min (90-120)
[2020-12-04 19:27] LABS: GLUCOSE 273 mg/dL (74-106)
[2020-12-04 19:31] LABS: APTT 30.6 SECONDS (22.8-39.4); INR 1.09 (0.85-1.17)
[2020-12-04 19:44] LABS: ALBUMIN 3.4 g/dL (3.4-5.0); ALKALINE PHOSPHATASE 68 U/L (30-120); ALT (SGPT) 27 U/L (10-68); BILIRUBIN - TOTAL 0.27 mg/dL (0.2-1.3); CKMB 2.7 U/L (0.0-3.6); CREATINE KINASE 115 UL (21-232); MAGNESIUM - SERUM 1.8 mg/dL (1.8-2.4)
[2020-12-04 19:45] VITALS: BP 137/78
[2020-12-04 19:47] LABS: TROPONIN-I < 0.017 ng/mL (0.000-0.060)
[2020-12-04 20:50] VITALS: BP 128/71
[2020-12-04 21:30] VITALS: BP 135/84
[2020-12-04 21:42] LABS: BILIRUBIN NEGATIVE (NEGATIVE); KETONE NEGATIVE (NEGATIVE); NITRITE NEGATIVE (NEGATIVE); UROBILINOGEN NORMAL mg/dL (< 2)
[2020-12-04 21:43] LABS: WHITE CELLS - URINE NONE SEEN HPF (0-1)
[2020-12-04 21:53] LABS: UDS - AMPHET NEGATIVE QUAL (NEGATIVE); UDS - BARB NEGATIVE QUAL (NEGATIVE); UDS - BENZO NEGATIVE QUAL (NEGATIVE); UDS - COCAINE NEGATIVE QUAL (NEGATIVE); UDS - OPIATE POSITIVE QUAL (NEGATIVE); UDS - PCP NEGATIVE QUAL (NEGATIVE); UDS - THC NEGATIVE QUAL (NEGATIVE)
[2020-12-04 22:42] VITALS: BP 130/77
--- NOTE | 2020-12-05 00:07 | NUR ---
RECEIVED FROM ER [facility]IA [facility] AT [place]. ALERT,ORIENTED,NO COMPLAINTS OF PAIN. NO DISTRESS NOTED. ORIENTED TO ROOM. CL IN REACH
[2020-12-05 00:23] VITALS: BP 158/96
--- NOTE | 2020-12-05 00:30 | NUR ---
DR KEBEDE NOTIFIED OF CONSULT AND ROOM NUMBER.
[2020-12-05 04:12] VITALS: BMI 39.3
[2020-12-05 09:33] VITALS: BP 141/61
[2020-12-05 09:40] LABS: BASOPHILS 0.3 % (0-2); EOSINOPHILS 8.9 % (0-7); HEMATOCRIT 41.8 % (42.0-54.0); HEMOGLOBIN 13.1 g/dL (13.5-17.5); IMMATURE GRANULOCYTES 0.6 % (0-5); LYMPHOCYTE ABS# 1.38 10x3/uL (1.32-3.57); LYMPHOCYTES 15.8 % (15-50); MCH 25.8 pg (26.0-34.0); MCHC 31.3 g/dL (31.0-37.0); MCV 82.3 fL (80.0-100.0); MEAN PLATELET VOLUME 9.6 fL (7.4-10.4); MONOCYTES 6.6 % (2-11); NEUTROPHIL ABS# 5.94 10x3/uL (1.78-5.38); NEUTROPHILS 67.8 % (40-80); PLATELET COUNT 253 10x3/uL (130-400); RBC 5.08 10x6/uL (4.20-6.10); RDW 14.2 % (11.5-14.5); WBC 8.8 10x3/uL (4.8-10.8)
[2020-12-05 10:06] LABS: CALC OSMOLALITY 288 mosm/kg (275-300); CARBON DIOXIDE 25.1 mmol/L (21.0-32.0); CHLORIDE - SERUM 103 mmol/L (98-107); CREATINE KINASE 80 UL (21-232); GLUCOSE 272 mg/dL (74-106); PHOSPHOROUS 3.4 mg/dL (2.5-4.9); SODIUM 138 mmol/L (136-145); UREA NITROGEN 20 mg/dL (7-18); eGFR NON AFRICAN AMERICAN 80 mL/min (90-120)
[2020-12-05 10:07] LABS: TROPONIN-I < 0.017 ng/mL (0.000-0.060)
[2020-12-05 13:56] VITALS: BP 193/76
[2020-12-05 15:10] VITALS: Ht 177.8 cm; Wt 124.3 kg
[2020-12-05 17:05] VITALS: BP 153/78
[2020-12-05 20:00] VITALS: BP 141/72
[2020-12-06] VITALS: BP 137/79
[2020-12-06 04:00] VITALS: BP 112/69
[2020-12-06 08:02] VITALS: BP 136/67
[2020-12-06 08:29] LABS: BASOPHILS 0.4 % (0-2); EOSINOPHILS 9.9 % (0-7); HEMATOCRIT 40.1 % (42.0-54.0); HEMOGLOBIN 12.9 g/dL (13.5-17.5); IMMATURE GRANULOCYTES 0.8 % (0-5); LYMPHOCYTE ABS# 1.35 10x3/uL (1.32-3.57); LYMPHOCYTES 16.9 % (15-50); MCHC 32.2 g/dL (31.0-37.0); MCV 80.8 fL (80.0-100.0); MEAN PLATELET VOLUME 9.6 fL (7.4-10.4); MONOCYTES 6.9 % (2-11); NEUTROPHILS 65.1 % (40-80); PLATELET COUNT 253 10x3/uL (130-400); RBC 4.96 10x6/uL (4.20-6.10); RDW 14.2 % (11.5-14.5)
[2020-12-06 09:15] LABS: CALCIUM 8.7 mg/dL (8.5-10.1); CHLORIDE - SERUM 103 mmol/L (98-107); CREATININE - SERUM 0.9 mg/dL (0.6-1.3); PHOSPHOROUS 3.8 mg/dL (2.5-4.9); POTASSIUM - SERUM 4.2 mmol/L (3.5-5.1); SODIUM 140 mmol/L (136-145); eGFR NON AFRICAN AMERICAN > 90 mL/min (90-120)
[2020-12-06 09:16] LABS: CALC OSMOLALITY 284 mosm/kg (275-300); GLUCOSE 204 mg/dL (74-106); UREA NITROGEN 13 mg/dL (7-18)
[2020-12-06 13:19] VITALS: BP 125/80
--- NOTE | 2020-12-06 17:06 | NUR ---
PATIENT DC HOME, WENT OVER DC PAPERORK AND FOLLOW UP APPOINTMENT WITH PATIENT. ALL QUESTIONS ANSWERED. PATIENT TAKEN TO ER ENTRANCE BY WC WITH HOSPITAL TRANSPORTER. IV DC WITH CATHETER INTACT
== END 2020-12-06 17:10 | disposition home or self-care (01) | DRG 69 ==
LOC: D.ER 18:58 → D.MS 22:58
PROVIDERS: Family Medicine; ADMIT Emergency Medicine; ATTEND Emergency Medicine
DX: G45.9 Transient cerebral ischemic attack, unspecified (principal); R55 Syncope and collapse; D64.9 Anemia, unspecified; E11.65 Type 2 diabetes mellitus with hyperglycemia; I10 Essential (primary) hypertension; K21.9 Gastro-esophageal reflux disease without esophagitis; E78.5 Hyperlipidemia, unspecified; F32.9 Major depressive disorder, single episode, unspecified; E11.42 Type 2 diabetes mellitus with diabetic polyneuropathy; W19.XXXA Unspecified fall, initial encounter